=== PATIENT | male | born 1955 | race Hispanic/Latino ===

== ENCOUNTER 2017-10-29 14:38 | Emergency (ER) | payer OTHER, MEDICARE ==
[~2017-10-29 14:38] MED LIST: AMLO5TAB2 PO; ASPI-555 PO; INSLAN SQ; LISI40TA4 PO; METO50TA18 PO; SIMV40TA5 PO
[2017-10-29 15:39] LABS: BASOPHILS % (AUTO) 0.3 % (0.0-5.0); EOSINOPHILS % (AUTO) 1.5 % (0.0-8.0); HEMATOCRIT 33.3 % (42-54); LYMPHOCYTES % (AUTO) 21.2 % (21.0-51.0); MEAN CORPUSCULAR HEMOGLOBIN 32.1 pg (27.0-33.0); MEAN CORPUSCULAR HGB CONC 35.3 g/dL (32.0-36.0); PLATELET COUNT (AUTO) 173 K/uL (130-400); RED BLOOD CELL COUNT(AUTO) 3.66 MIL/uL (4.50-6.20); RED CELL DISTRIBUTION WIDTH 13.2 % (11.0-15.5); WHITE BLOOD COUNT (AUTO) 5.9 K/uL (4.8-10.8)
[2017-10-29 15:44] LABS: CREATININE 1.5 mg/dL (0.5-1.5)
[2017-10-29 15:49] LABS: ALBUMIN 4.5 g/dL (3.5-5.0); BILIRUBIN,TOTAL 0.6 mg/dL (0.2-1.0); TOTAL PROTEIN, SERUM 7.9 g/dL (6.0-8.3)
[2017-10-29 15:58] LABS: CREATINE KINASE, TOTAL 75 U/L (21-232); MYOGLOBIN 55 ng/mL (10-92); TROPONIN I < 0.04 ng/mL (0.00-0.06)
[2017-10-29 16:01] LABS: APPEARANCE,URINE Clear (CLEAR); BILIRUBIN,URINE Negative (NEGATIVE); COLOR,URINE Yellow (YELLOW); GLUCOSE, URINE (UA) Negative (NEGATIVE); KETONES,URINE Negative (NEGATIVE); LEUKOCYTE ESTERASE ,URINE Negative (NEGATIVE); NITRATE,URINE Negative (NEGATIVE); OCCULT BLOOD,URINE Negative (NEGATIVE); PH,URINE 5.5 (5.0-8.0); PROTEIN,URINE POS 1+ (NEGATIVE); UROBILINOGEN,URINE 0.2 mg/dL (0.2-1.0)
[2017-10-29 16:28] LABS: BACTERIA,URINE Rare /HPF (None Seen); RBC,URINE 0-1 /HPF (0-1); WBC,URINE 0-1 /HPF (0-1)
[2017-10-29 16:29] LABS: SQUAMOUS EPITHELIAL CELL,UR Rare /HPF (0-2)
[2017-10-29] MEDS ORDERED: CLONIDINE HCL 0.1 MG TABLET ONE (19:26)
[2017-12-20] MEDS ORDERED: METO50TA18 PO (13:18)
[2017-12-20] MEDS ORDERED: SERT25TA5 PO (13:18)
[2017-12-20] MEDS ORDERED: TYL3B PO (13:18)
== END 2017-10-29 20:00 | disposition home or self-care (01) ==
LOC: EDH 14:38
DX: I10 Essential (primary) hypertension (principal); R06.02 Shortness of breath; E11.9 Type 2 diabetes mellitus without complications; I25.10 Atherosclerotic heart disease of native coronary artery without angina pectoris; E78.5 Hyperlipidemia, unspecified; Z95.1 Presence of aortocoronary bypass graft
CPT/HCPCS: 36415; 71046; 80053; 81001; 82550; 82553; 83874; 84484; 85025; 87804; 93005; 99291

== ENCOUNTER 2017-12-23 12:45 | Observation (INO) | payer OTHER, MEDICARE ==
[2017-12-20 12:40] VITALS: BP 131/65
[2017-12-20 13:00] LABS: BASOPHILS % (AUTO) 0.3 % (0.0-5.0); EOSINOPHILS % (AUTO) 1.1 % (0.0-8.0); HEMATOCRIT 28.1 % (42-54); LYMPHOCYTES % (AUTO) 13.9 % (21.0-51.0); MEAN CORPUSCULAR HEMOGLOBIN 32.3 pg (27.0-33.0); MEAN CORPUSCULAR HGB CONC 35.4 g/dL (32.0-36.0); MEAN CORPUSCULAR VOLUME 91.2 fL (79-99); MONOCYTES % (AUTO) 9.7 % (3.0-13.0); PLATELET COUNT (AUTO) 150 K/uL (130-400); RED BLOOD CELL COUNT(AUTO) 3.08 MIL/uL (4.50-6.20); WHITE BLOOD COUNT (AUTO) 6.1 K/uL (4.8-10.8)
[2017-12-20 13:03] LABS: APPEARANCE,URINE Clear (CLEAR); BILIRUBIN,URINE Negative (NEGATIVE); COLOR,URINE Yellow (YELLOW); GLUCOSE, URINE (UA) Negative (NEGATIVE); KETONES,URINE Negative (NEGATIVE); LEUKOCYTE ESTERASE ,URINE Negative (NEGATIVE); NITRATE,URINE Negative (NEGATIVE); OCCULT BLOOD,URINE Negative (NEGATIVE); PROTEIN,URINE POS 1+ (NEGATIVE); UROBILINOGEN,URINE 0.2 mg/dL (0.2-1.0)
[2017-12-20 13:16] LABS: CREATININE 1.7 mg/dL (0.5-1.5); POTASSIUM 5.2 mmol/L (3.5-5.1)
[2017-12-20 13:20] LABS: INR 0.95 (0.85-1.15); PARTIAL THROMBOPLASTIN TIME 30.3 SEC (26.3-35.5)
[2017-12-20 13:24] LABS: BACTERIA,URINE Rare /HPF (None Seen); RBC,URINE 0-1 /HPF (0-1); SQUAMOUS EPITHELIAL CELL,UR Rare /HPF (0-2); WBC,URINE 0-1 /HPF (0-1)
[2017-12-23] VITALS (17 sets, daily range): BP systolic 113–179; BP diastolic 58–90
[~2017-12-23] VITALS: Ht 170.2 cm; Wt 76.1 kg
[~2017-12-23 12:45] MED LIST changes: +SERT25TA5 PO; +TYL3B PO
[2017-12-23] MEDS: CEFAZOLIN SODIUM 1 GM VIAL IVP SCH ×2 (13:00→19:10)
[2017-12-23] MEDS ORDERED: SODIUM CHLORIDE 0.9% 1000ML 1,000 ML IV ONE (13:32)
[2017-12-23 13:51] LABS: CREATININE 1.5 mg/dL (0.5-1.5); POTASSIUM 5.6 mmol/L (3.5-5.1)
[2017-12-23] MEDS ORDERED: SODIUM POLYSTYRENE SULFONATE 15 GM/60 ML ML PO SCH (14:15)
[2017-12-23] MEDS ORDERED: PROPOFOL 10 MG/ML 20ML VIAL IV ONE (19:01)
[2017-12-23] MEDS ORDERED: FENTANYL CITRATE PF 50 MCG/1 ML 2ML VIAL ONE ×3 (19:01→20:23)
[2017-12-23] MEDS ORDERED: EPHEDRINE SULFATE 50 MG/ML AMPULE ONE (19:21)
[2017-12-23] MEDS ORDERED: CEFAZOLIN SODIUM 1 GM VIAL ONE (19:32)
[2017-12-23] MEDS ORDERED: PHENYLEPHRINE HCL 10 MG/ML 1ML VIAL IV ONE (20:15)
[2017-12-23] MEDS ORDERED: NEOSTIGMINE 5MG/5ML SYR IV ONE (20:15)
[2017-12-23] MEDS ORDERED: GLYCOPYRROLATE 0.2 MG/ML 5 ML VIAL ONE (20:15)
[2017-12-23] MEDS ORDERED: LIDOCAINE PF 2% 5ML ABBOJECT ONE (20:15)
[2017-12-23] MEDS ORDERED: DIPHENHYDRAMINE HCL 25 MG CAPSULE PO PRN (20:30)
[2017-12-23] MEDS ORDERED: PROMETHAZINE HCL 25 MG/ML 1ML AMPULE IM PRN (20:30)
[2017-12-23] MEDS ORDERED: CALCIUM CARBONATE 500 MG TABLET PO PRN (20:30)
[2017-12-23] MEDS ORDERED: TEMAZEPAM 15 MG CAPSULE PO PRN (20:30)
[2017-12-23] MEDS ORDERED: MEPERIDINE-PF 50 MG/ML SYG ONE (20:55)
[2017-12-23] MEDS ORDERED: HYDROMORPHONE HCL 0.5 MG/0.5 ML ML ONE (21:11)
[2017-12-23] MEDS ORDERED: ACETAMINOPHEN-CODEINE 300/30MG TAB PO PRN (22:00)
[2017-12-23] MEDS: SODIUM CHLORIDE 0.9% 1000ML 1,000 ML IV SCH (23:28)
[2017-12-23] MEDS: HYDROCODONE/ACETAMINOPHEN 5/325 MG TAB PO PRN (23:35)
[2017-12-24] VITALS (8 sets, daily range): BP systolic 132–169; BP diastolic 63–80
[2017-12-24] MEDS ORDERED: CEFAZOLIN 2GM / 50 ML 50 ML IV SCH (01:30)
[2017-12-24] MEDS: CEFAZOLIN SODIUM 1 GM VIAL IVP SCH ×2 (01:44→08:46)
[2017-12-24] MEDS: HYDROCODONE/ACETAMINOPHEN 5/325 MG TAB PO PRN ×4 (05:13→13:33)
[2017-12-24 05:36] LABS: HEMATOCRIT 27.5 % (42-54); MEAN CORPUSCULAR HEMOGLOBIN 32.2 pg (27.0-33.0); MEAN CORPUSCULAR VOLUME 92.1 fL (79-99); PLATELET COUNT (AUTO) 176 K/uL (130-400); RED BLOOD CELL COUNT(AUTO) 2.99 MIL/uL (4.50-6.20); RED CELL DISTRIBUTION WIDTH 13.2 % (11.0-15.5); WHITE BLOOD COUNT (AUTO) 8.4 K/uL (4.8-10.8)
[2017-12-24] MEDS: SODIUM CHLORIDE 0.9% 1000ML 1,000 ML IV SCH (05:55)
[2017-12-24 05:58] LABS: CREATININE 1.5 mg/dL (0.5-1.5); POTASSIUM 4.8 mmol/L (3.5-5.1)
[2017-12-24] MEDS: METOPROLOL TARTRATE 50 MG TAB PO SCH ×2 (08:44→16:42)
[2017-12-24] MEDS ORDERED: TAMSULOSIN HCL 0.4 MG CAP.ER.24H PO SCH (09:00)
[2017-12-24] MEDS ORDERED: INSULIN GLARGINE 100 UNITS/ML 10 ML VIAL SQ SCH (09:00)
[2017-12-24] MEDS ORDERED: ATORVASTATIN CALCIUM 20 MG TABLET PO SCH (09:00)
[2017-12-24] MEDS ORDERED: AMLODIPINE BESYLATE 5 MG TAB PO SCH (09:00)
[2017-12-24] MEDS ORDERED: POLYETHYLENE GLYCOL 3350 17 GM POWD.PACK PO SCH (09:00)
[2017-12-24] MEDS ORDERED: LISINOPRIL 40 MG TABLET PO SCH (09:00)
[2017-12-24] MEDS ORDERED: SERTRALINE HCL 50 MG TABLET PO SCH (09:00)
[2017-12-24] MEDS ORDERED: ASPIRIN 81 MG EC TAB PO SCH (09:00)
[2017-12-24] MEDS ORDERED: ENOXAPARIN SODIUM 40 MG/0.4 ML SYRINGE SQ SCH (09:00)
== END 2017-12-24 19:08 | disposition home or self-care (01) ==
LOC: DAH 12:45 → 4AH 12:46
PROVIDERS: ADMIT Orthopaedic Surgery; ATTEND Orthopaedic Surgery
PROC: 0QSF04Z Reposition Left Patella with Internal Fixation Device, Open Approach (ICD-10-PCS; principal; 2017-12-23 19:05)
DX: S82.032A Displaced transverse fracture of left patella, initial encounter for closed fracture (principal); W01.0XXA Fall on same level from slipping, tripping and stumbling without subsequent striking against object, initial encounter; Y93.89 Activity, other specified; Y92.89 Other specified places as the place of occurrence of the external cause; Y99.8 Other external cause status; I10 Essential (primary) hypertension; E11.9 Type 2 diabetes mellitus without complications; K21.9 Gastro-esophageal reflux disease without esophagitis; E78.5 Hyperlipidemia, unspecified; F41.9 Anxiety disorder, unspecified; Z95.1 Presence of aortocoronary bypass graft; F32.9 Major depressive disorder, single episode, unspecified; F17.210 Nicotine dependence, cigarettes, uncomplicated; Z79.82 Long term (current) use of aspirin; Z79.899 Other long term (current) drug therapy
CPT/HCPCS: 27524; 36415 ×3; 76000; 80048 ×3; 81001; 82948 ×5; 85025; 85027; 85610; 85730; 96372; 96374; 96376; 97039; 97116 ×2; 97161; A4218 ×3; A4649 ×2; A4930 ×2; A6223; C1713 ×2; G0378 ×30; G8978; G8979; G8980; G8981; G8982; G8983; J0690 ×4; J1170; J1650; J2001; J2175; J2370; J2704; J2710; J3010 ×3; J3490 ×2; J7030

== ENCOUNTER → 2019-08-21 | Outpatient (CLI) | payer OTHER, MEDICARE ==
[~2019-08-21] MED LIST changes: -AMLO5TAB2 PO; +AMLO5TAB9 PO; +SIMV-46 PO; -SIMV40TA5 PO
== END | disposition home or self-care (01) ==
LOC: SHCH 12:49
PROVIDERS: ATTEND Internal Medicine Cardiovascular Disease
DX: I25.10 Atherosclerotic heart disease of native coronary artery without angina pectoris (principal)
CPT/HCPCS: 93306

== ENCOUNTER → 2021-10-25 | Outpatient (CLI) | payer OTHER, MEDICARE ==
[~2021-10-25] MED LIST changes: +AMLO-257 PO; -AMLO5TAB9 PO; -ASPI-555 PO; +ASPI-556 PO; -LISI40TA4 PO; +LISI40TA9 PO; +SERT-438 PO; -SERT25TA5 PO
== END | disposition home or self-care (01) ==
LOC: SHCH 12:32
PROVIDERS: ATTEND Internal Medicine Cardiovascular Disease
DX: I35.8 Other nonrheumatic aortic valve disorders (principal); I25.10 Atherosclerotic heart disease of native coronary artery without angina pectoris; I11.9 Hypertensive heart disease without heart failure; E11.9 Type 2 diabetes mellitus without complications; E78.5 Hyperlipidemia, unspecified; Z95.1 Presence of aortocoronary bypass graft
CPT/HCPCS: 93306

== ENCOUNTER 2021-12-11 07:48 | Observation (INO) | payer OTHER, MEDICARE ==
[2021-12-07 11:42] LABS: BASOPHILS % (AUTO) 0.6 % (0.0-5.0); EOSINOPHILS % (AUTO) 2.6 % (0.0-8.0); HEMATOCRIT 31.3 % (42-54); LYMPHOCYTES % (AUTO) 22.2 % (21.0-51.0); MEAN CORPUSCULAR HEMOGLOBIN 31.3 pg (27.0-33.0); MEAN CORPUSCULAR HGB CONC 33.9 g/dL (32.0-36.0); MEAN CORPUSCULAR VOLUME 92.3 fL (79-99); MONOCYTES % (AUTO) 8.4 % (3.0-13.0); PLATELET COUNT (AUTO) 191 K/uL (130-400); RED BLOOD CELL COUNT(AUTO) 3.39 MIL/uL (4.50-6.20); RED CELL DISTRIBUTION WIDTH 12.1 % (11.0-15.5); WHITE BLOOD COUNT (AUTO) 5.1 K/uL (4.8-10.8)
[2021-12-07 11:51] LABS: INR 0.98 (0.85-1.15); POTASSIUM 4.6 mmol/L (3.5-5.1); PROTHROMBIN TIME 10.7 SEC (9.6-11.6)
[2021-12-07 11:53] LABS: PARTIAL THROMBOPLASTIN TIME 29.9 SEC (26.3-35.5)
[2021-12-07 12:05] LABS: APPEARANCE,URINE Clear (CLEAR); BILIRUBIN,URINE Negative (NEGATIVE); COLOR,URINE Yellow (YELLOW); GLUCOSE, URINE (UA) Negative (NEGATIVE); KETONES,URINE Negative (NEGATIVE); LEUKOCYTE ESTERASE ,URINE Negative (NEGATIVE); NITRATE,URINE Negative (NEGATIVE); OCCULT BLOOD,URINE Negative (NEGATIVE); PH,URINE 5.5 (5.0-8.0); PROTEIN,URINE POS 2+ mg/dL (NEGATIVE); UROBILINOGEN,URINE 0.2 mg/dL (0.2-1.0)
[2021-12-07 12:10] LABS: B-TYPE NATRIURETIC PEPTIDE 28 pg/mL (0-100)
[2021-12-07 12:16] LABS: BACTERIA,URINE Rare /HPF (None Seen); RBC,URINE 0-1 /HPF (0-1); SQUAMOUS EPITHELIAL CELL,UR Rare /HPF (0-2); WBC,URINE 0-1 /HPF (0-1)
[2021-12-08 09:19] VITALS: BP 146/63
[~2021-12-11] VITALS: Ht 162.6 cm; Wt 66.1 kg
[2021-12-11] VITALS (29 sets, daily range): BP systolic 103–160; BP diastolic 52–82
[~2021-12-11 07:48] MED LIST changes: -ASPI-556 PO; +ATOR10TA69 PO; +FERS325 PO; +FOLI1TAB85 PO; -SERT-438 PO; -SIMV-46 PO; -TYL3B PO
[2021-12-11] MEDS ORDERED: 0.9%NACL 1000ML 1,000 ML IV SCH ×2 (08:00→14:30)
[2021-12-11 08:35] LABS: POTASSIUM 4.8 mmol/L (3.5-5.1)
[2021-12-11] MEDS ORDERED: LIDOCAINE HCL 2% VISCOUS 15 ML UDCUP ONE (08:49)
[2021-12-11] MEDS: 0.9%NACL 1000ML 1,000 ML IV SCH ×2 (09:02→15:21)
[2021-12-11] MEDS ORDERED: MIDAZOLAM HCL 1 MG/ML 2ML VIAL ONE (09:07)
[2021-12-11] MEDS ORDERED: FENTANYL CITRATE PF 50 MCG/1 ML 2ML VIAL ONE (09:07)
[2021-12-11] MEDS ORDERED: FLUMAZENIL 0.1MG/1ML 5ML VIAL IV ONE (09:07)
[2021-12-11] MEDS ORDERED: MIDAZOLAM HCL 1 MG/ML 2ML VIAL IVP SCH (10:00)
[2021-12-11] MEDS ORDERED: IOHEXOL 350 MG/ML 100ML INFUS..BTL IV ONE (12:53)
[2021-12-11] MEDS ORDERED: LIDOCAINE HCL 400MG/20ML VIAL ONE (12:53)
[2021-12-11] MEDS ORDERED: SODIUM BICARB 50MEQ 50ML VIAL 50 ML ONE (12:53)
[2021-12-11] MEDS ORDERED: MEPERIDINE-PF 25 MG/ML SYG ONE (12:53)
[2021-12-11] MEDS ORDERED: NITROGLYCERIN 50MG VIAL ONE (12:54)
[2021-12-11] MEDS ORDERED: IOHEXOL-350 50ML VIAL IV ONE (13:07)
[2021-12-11] MEDS ORDERED: HEPARIN 10,000 UNIT/10ML (1,000 UNIT/ML) VIAL ONE (13:25)
[2021-12-11] MEDS ORDERED: CLOPIDOGREL 300MG TAB ONE (14:19)
[2021-12-11] MEDS ORDERED: ASPIRIN 325MG EC TAB PO ONE (14:19)
[2021-12-11] MEDS ORDERED: DEXTROSE 50%-WATER 50 ML DISP.SYRIN IV PRN (14:30)
[2021-12-11] MEDS: INSULIN HUMULIN R 100 UNIT/ML 3ML SQ SCH ×2 (16:02→20:39)
[2021-12-11] MEDS: FERROUS SULFATE 325 MG TABLET.DR PO SCH (16:24)
[2021-12-11] MEDS: Vitamin B Complex/Vit C/Folic Acid PO SCH (16:24)
[2021-12-11] MEDS: METOPROLOL TARTRATE 50 MG TAB PO SCH (16:24)
[2021-12-11 16:41] LABS: HEMATOCRIT 28.3 % (42-54); MEAN CORPUSCULAR HEMOGLOBIN 32.1 pg (27.0-33.0); MEAN CORPUSCULAR VOLUME 91.9 fL (79-99); PLATELET COUNT (AUTO) 170 K/uL (130-400); RED BLOOD CELL COUNT(AUTO) 3.08 MIL/uL (4.50-6.20); RED CELL DISTRIBUTION WIDTH 12.4 % (11.0-15.5); WHITE BLOOD COUNT (AUTO) 6.9 K/uL (4.8-10.8)
[2021-12-11 17:06] LABS: BAND NEUTROPHILS % (MANUAL) 3 % (0-2); LYMPHOCYTES % (MANUAL) 26 % (22-44); MAN.DIFF COMMENT-IMPRESSION MANUAL DIFFERENTIAL; MONOCYTES % (MANUAL) 6 % (2-9); REACTIVE LYMPHOCYTES 3 % (0-0); SEGMENTED NEUTROPHILS % 62 % (40-70)
[2021-12-11] MEDS ORDERED: ATORVASTATIN 10 MG TABLET PO SCH (21:00)
[2021-12-12 04:07] VITALS: BP 147/67
[2021-12-12 04:25] LABS: HEMATOCRIT 27.3 % (42-54); MEAN CORPUSCULAR HEMOGLOBIN 31.2 pg (27.0-33.0); MEAN CORPUSCULAR HGB CONC 34.4 g/dL (32.0-36.0); MEAN CORPUSCULAR VOLUME 90.7 fL (79-99); RED BLOOD CELL COUNT(AUTO) 3.01 MIL/uL (4.50-6.20); RED CELL DISTRIBUTION WIDTH 12.3 % (11.0-15.5); WHITE BLOOD COUNT (AUTO) 6.1 K/uL (4.8-10.8)
[2021-12-12] MEDS: 0.9%NACL 1000ML 1,000 ML IV SCH ×2 (04:37→12:10)
[2021-12-12 04:47] LABS: CREATININE 1.8 mg/dL (0.5-1.5); POTASSIUM 4.8 mmol/L (3.5-5.1)
[2021-12-12] MEDS: INSULIN HUMULIN R 100 UNIT/ML 3ML SQ SCH ×3 (07:30→16:12)
[2021-12-12 08:29] VITALS: BP 128/67
[2021-12-12] MEDS ORDERED: AMLODIPINE 5 MG TAB PO SCH (09:00)
[2021-12-12] MEDS ORDERED: ASPIRIN 81MG CHEW TAB PO SCH (09:00)
[2021-12-12] MEDS ORDERED: INSULIN GLARGINE 100 UNITS/ML 10 ML VIAL SQ SCH (09:00)
[2021-12-12] MEDS ORDERED: LISINOPRIL 40 MG TABLET PO SCH (09:00)
[2021-12-12] MEDS ORDERED: CLOPIDOGREL 75MG TAB PO SCH (09:00)
[2021-12-12] MEDS ORDERED: FAMOTIDINE 20MG TAB PO SCH (10:00)
[2021-12-12] MEDS: Vitamin B Complex/Vit C/Folic Acid PO SCH (10:31)
[2021-12-12] MEDS: METOPROLOL TARTRATE 50 MG TAB PO SCH ×2 (10:31→16:43)
[2021-12-12] MEDS: FERROUS SULFATE 325 MG TABLET.DR PO SCH (10:32)
[2021-12-12 12:05] VITALS: BP 131/72
[2021-12-12 16:10] VITALS: BP 136/69
[2021-12-12] MEDS ORDERED: AEC81 PO ×2 (17:11→17:17)
[2021-12-12] MEDS ORDERED: CLOP75TA32 PO (17:11)
== END 2021-12-12 18:40 | disposition home or self-care (01) ==
LOC: DAH 07:48 → DAHIP 07:49 → 2AH 07:50
PROVIDERS: ADMIT Internal Medicine Infectious Disease; ATTEND Internal Medicine Infectious Disease
DX: I25.119 Atherosclerotic heart disease of native coronary artery with unspecified angina pectoris (principal); I12.9 Hypertensive chronic kidney disease with stage 1 through stage 4 chronic kidney disease, or unspecified chronic kidney disease; N18.30 Chronic kidney disease, stage 3 unspecified; E11.22 Type 2 diabetes mellitus with diabetic chronic kidney disease; D63.1 Anemia in chronic kidney disease; E78.5 Hyperlipidemia, unspecified; I25.5 Ischemic cardiomyopathy; K21.9 Gastro-esophageal reflux disease without esophagitis; N17.9 Acute kidney failure, unspecified; F17.200 Nicotine dependence, unspecified, uncomplicated; D50.9 Iron deficiency anemia, unspecified; Z95.1 Presence of aortocoronary bypass graft; Z98.61 Coronary angioplasty status; Z79.899 Other long term (current) drug therapy; Z98.890 Other specified postprocedural states
CPT/HCPCS: 36415 ×3; 71045; 80048 ×3; 80061; 81001; 82948 ×6; 83880; 85025 ×2; 85027; 85347 ×2; 85610; 85730; 86850; 86900; 86901; 93005; 93312; 93459; 93799; 96372; A4215; A4216; A4221; A4222; A4223 ×3; A4606; A4615; A4663; A7002; C1760; C1761; C1769 ×2; C1874 ×3; C1887; C1894; C9600; G0378 ×29; J1644 ×3; J1815; J2175; J2250; J3010; J3490 ×3; J7030 ×3; Q9967 ×2; 96374; 99152; 99156; 99157

== ENCOUNTER → 2023-04-05 | Outpatient (CLI) | payer OTHER, MEDICARE | END | disposition home or self-care (01) | LOC: RAH 13:52 | PROVIDERS: ATTEND Internal Medicine | DX: S96.912A Strain of unspecified muscle and tendon at ankle and foot level, left foot, initial encounter (principal); R07.89 Other chest pain; M19.072 Primary osteoarthritis, left ankle and foot; M77.32 Calcaneal spur, left foot; X58.XXXA Exposure to other specified factors, initial encounter; Y93.89 Activity, other specified; Y92.89 Other specified places as the place of occurrence of the external cause; Y99.8 Other external cause status | CPT/HCPCS: 71100; 73630 ==

== ENCOUNTER → 2023-08-20 | Outpatient (CLI) | payer OTHER, MEDICARE | END | disposition home or self-care (01) | LOC: SHCH 13:25 | PROVIDERS: ATTEND Internal Medicine Cardiovascular Disease | DX: I25.10 Atherosclerotic heart disease of native coronary artery without angina pectoris (principal); I10 Essential (primary) hypertension; E11.9 Type 2 diabetes mellitus without complications; E78.5 Hyperlipidemia, unspecified | CPT/HCPCS: 93306 ==

== ENCOUNTER 2024-04-06 15:34 | Emergency (ER) | payer OTHER, MEDICARE ==
[~2024-04-06] VITALS: Ht 170.2 cm; Wt 68.0 kg
[2024-04-06 16:41] VITALS: BP 132/67; PULSE 67; RESP 18; TEMP 97.9; O2SAT 98
[2024-04-06 16:44] LABS: BASOPHILS # (AUTO) 0.01 K/uL (0.00-0.20); BASOPHILS % (AUTO) 0.2 % (0.0-5.0); EOSINOPHILS # (AUTO) 0.28 K/uL (0.00-0.70); EOSINOPHILS % (AUTO) 6.6 % (0.0-8.0); IMMATURE GRANULOCYTE ABSOLUTE 0.01 K/uL (0-1); LYMPHOCYTES # (AUTO) 1.1 K/uL (1.0-4.8); LYMPHOCYTES % (AUTO) 25.8 % (21.0-51.0); MEAN CORPUSCULAR HEMOGLOBIN 31.5 pg (27.0-33.0); MEAN CORPUSCULAR HGB CONC 34.9 g/dL (32.0-36.0); MEAN CORPUSCULAR VOLUME 90.1 fL (79-99); MONOCYTES # (AUTO) 0.4 K/uL (0.1-1.0); MONOCYTES % (AUTO) 9.9 % (3.0-13.0); NEUTROPHILS # (AUTO) 2.4 K/uL (1.8-7.7); NEUTROPHILS % (AUTO) 57.3 % (40.0-77.0); PLATELET COUNT (AUTO) 121 K/uL (130-400); RED BLOOD CELL COUNT(AUTO) 2.32 MIL/uL (4.50-6.20); WHITE BLOOD COUNT (AUTO) 4.3 K/uL (4.8-10.8)
[2024-04-06 16:52] LABS: CREATININE 3.6 mg/dL (0.5-1.3); POTASSIUM 4.3 mmol/L (3.5-5.1)
[2024-04-06 16:54] LABS: INR 0.97 (0.85-1.15); PROTHROMBIN TIME 10.5 SEC (9.6-11.6)
[2024-04-06 16:56] LABS: PARTIAL THROMBOPLASTIN TIME 29.4 SEC (26.3-35.5)
[2024-04-06 17:11] LABS: HEMATOCRIT 20.9 % (42-54)
[2024-04-06] MEDS ORDERED: IBUP-2070 PO (17:14)
== END 2024-04-06 17:30 | disposition home or self-care (01) ==
LOC: EDH 15:34
DX: R22.41 Localized swelling, mass and lump, right lower limb (principal); M79.661 Pain in right lower leg; I10 Essential (primary) hypertension; E11.9 Type 2 diabetes mellitus without complications; E78.00 Pure hypercholesterolemia, unspecified; Z79.4 Long term (current) use of insulin; Z79.899 Other long term (current) drug therapy; Z79.84 Long term (current) use of oral hypoglycemic drugs; Z95.1 Presence of aortocoronary bypass graft
CPT/HCPCS: 36415; 80048; 85025; 85610; 85730; 93971

== ENCOUNTER 2025-07-07 14:03 | Inpatient (IN) | payer OTHER, MEDICAID ==
[~2025-07-07] VITALS: Ht 170.2 cm; Wt 58.4 kg
--- NOTE | 2025-07-07 14:15 | ERN ---
ED Note History of Present Illness Stated Complaint: CP Chief Complaint: Chest Pain Time Seen by MD: 14:09 Dictation: PATIENT IS A 70-YEAR-OLD MALE COMING IN TODAY WITH COMPLAINTS OF SHORTNESS A BREATH ON EXERTION WITH A EDEMA TO HIS BILATERAL EXTREMITIES HE HAS HAD FOR QU ITE A WHILE ON-CALL. NO CHEST PAIN NO BACK PAIN. HE DENIES FEVER CHILLS STATES HE IS SEEING DR. YAN FOR HIS KIDNEY FUNCTION. Allergies: Coded Allergies: No Known Drug Allergies (Unverified Allergy, Unknown, 04/01/17) Home Meds Active Scripts Ibuprofen (Ibuprofen) 600 Mg Tablet, 600 MG PO Q6H PRN for PAIN, #30 TAB Prov:RONNI MONTES CONTACT LENS CUTTER 04/06/24 Reported Medications Ferrous Sulfate (Ferrous Sulfate) 325 Mg Ectab, 325 MG PO AM, TAB.EC 12/08/21 Vit B Cmplx 3/FA/Vit C/Biotin (Nasrin-[facility] Rx Tablet) 1 Each Tablet, 1 EACH PO AM, TAB 12/08/21 Atorvastatin Calcium (Atorvastatin Calcium) 10 Mg Tablet, 10 MG PO AM, TAB 12/08/21 Metoprolol Tartrate (Metoprolol Tartrate) 50 Mg Tablet, 50 MG PO BIDAC, TAB 12/20/17 Insulin Glargine,Hum.rec.anlog (Lantus) 100 Units/Ml Inj, 8 UNITS SQ DAILY, ML 04/01/17 Amlodipine Besylate (Amlodipine Besylate) 5 Mg Tablet, 5 MG PO DAILY, TAB 04/01/17 Lisinopril (Lisinopril) 40 Mg Tablet, 40 MG PO DAILY, TAB 04/01/17 Past Medical History Past Medical History: Diabetes-Type II, High Cholesterol, Heart Disease, Hyp ertension Surgical History: CABG, Other Surgical History Other: HEART STENTS RN Note Reviewed/Agreed w/PFSH: Yes Review of System Dictation CONSTITUTIONAL: NEGATIVE EXCEPT FOR HPI HEAD/FACE: NEGATIVE EXCEPT FOR HPI EENT: NEGATIVE EXCEPT FOR HPI RESPIRATORY: NEGATIVE EXCEPT FOR HPI SHORTNESS A BREATH/DEPENDING EDEMA GASTROINTESTINAL/ABDOMINAL: NEGATIVE EXCEPT FOR HPI GENITOURINARY: NEGATIVE EXCEPT FOR HPI MUSCULOSKELETAL: NEGATIVE EXCEPT FOR HPI INTEGUMENTARY: NEGATIVE EXCEPT FOR HPI NEUROLOGICAL/PSYCH: NEGATIVE EXCEPT FOR HPI HEMATOLOGIC/LYMPHATIC: NEGATIVE EXCEPT FOR HPI ALL SYSTEMS NEGATIVE, EXCEPT NOTED ABOVE. 13 POINT REVIEW OF SYSTEMS ASSESSED AND ALL NEGATIVE EXCEPT FOR ABOVE. Initial Vital Sign VS Vital Signs Date Time Temp Pulse Resp B/P (MAP) Pulse Ox O2 Delivery O2 Flow Rate FiO2 07/07/25 14:09 98.2 68 18 166/75 99 Room Air 0 07/07/25 15:14 21 Physical Exam Dictation VITAL SIGNS REVIEWED GENERAL APPEARANCE: ALERT, ORIENTED X 3, NO ACUTE DISTRESS, WELL DEVELOPED, NOURISHED. HEAD AND FACE: NON-TRAUMATIC. EYES: PERRL, PINK CONJUNCTIVAS, EYELID NO TRAUMA, ANTERIOR CHAMBER WITH ARCUS SENILIS. EARS: PINNAS INTACT AND NO SIGNS OF TRAUMA OR ERYTHEMA EAR CANALS CLEAR AND NO DISCHARGE TM NO ERYTHEMA NOSE: NO DISCHARGE, NO BLEEDING. OROPHARYNX: MOUTH NORMAL, TONGUE PINK, PHARYNX CLEAR,NO ERYTHEMA, TONSILS NO EXUDATES, NO ABSCESSES NOTED, MUCOUS MEMBRANE MOIST NECK: SUPPLE, NON-TENDER, NO THYROMEGALY, NO MASSES, NO JVD, NO BRUITS BREAST:DEFERRED CHEST:NO TENDERNESS, NO CREPITUS, NO PARADOXICAL MOVEMENT, NO RETRACTIONS LUNGS:CLEAR, WELL-VENTILATED, SYMMETRIC, NO RALES, NO WHEEZING, NO RHONCHI, NO STRIDOR, GOOD BREATH SOUNDS BILATERALLY NO TACHYPNEA NO RETRACTIONS DIMINISHED IN THE BASES HEART: REGULAR RATE, REGULAR RHYTHM, NO MURMUR, NO GALLOPS VASCULAR: 2+ PERIPHERAL EDEMA BILATERAL LOWER EXTREMITIES TO KNEE, ABDOMEN: SOFT, POSITIVE BOWEL SOUNDS, NONDISTENDED, NO GUARDING, NONTENDER, NO REBOUND, NO MASSES NO HEPATOMEGALY, NO SPLENOMEGALY, NO JOINER'S SIGN, NO HERNIAS. RECTAL: DEFERRED GENITAL: DEFERRED NEUROLOGICAL: NORMAL SPEECH, MOTOR FUNCTION INTACT, SENSORY FUNCTION INTACT MUSCULOSKELETAL: NECK NONTENDER, FULL RANGE OF MOTION, BACK NONTENDER, FULL RANGE OF MOTION, EXTREMITIES: NONTENDER, FULL RANGE OF MOTION SKIN: COLOR PINK, DRY, NO TURGOR, NO RASH, NO LACERATIONS, NO ABRASIONS, NO CONTUSIONS. LYMPHATIC: DEFERRED Results (Laboratory/Radiology) Laboratory/Radiology Laboratory Tests Test 07/07/25 14:27 07/07/25 14:28 White Blood Count 5.2 K/uL (4.8-10.8) Red Blood Count 2.58 MIL/uL (4.50-6.20) L Hemoglobin 8.3 g/dL (14.0-18.0) L Hematocrit 23.3 % (42-54) L Mean Corpuscular Volume 90.3 fL (79-99) Mean Corpuscular Hemoglobin 32.2 pg (27.0-33.0) Mean Corpuscular Hemoglobin Concent 35.6 g/dL (32.0-36.0) Red Cell Distribution Width 14.1 % (11.0-15.5) Platelet Count 116 K/uL (130-400) L Mean Platelet Volume 9.8 fL (7.5-10.5) Immature Granulocyte % (Auto) 0.2 % (0-1) Neutrophils (%) (Auto) 78.0 % (40.0-77.0) H Lymphocytes (%) (Auto) 12.2 % (21.0-51.0) L Monocytes (%) (Auto) 7.3 % (3.0-13.0) Eosinophils (%) (Auto) 1.9 % (0.0-8.0) Basophils (%) (Auto) 0.4 % (0.0-5.0) Neutrophils # (Auto) 4.0 K/uL (1.8-7.7) Lymphocytes # (Auto) 0.6 K/uL (1.0-4.8) L Monocytes # (Auto) 0.4 K/uL (0.1-1.0) Eosinophils # (Auto) 0.10 K/uL (0.00-0.70) Basophils # (Auto) 0.02 K/uL (0.00-0.20) Absolute Immature Granulocyte (auto 0.01 K/uL (0-1) Nucleated Red Blood Cells 0.0 % (0.0-0.19) Sodium Level 126 mmol/L (136-145) L Potassium Level 5.0 mmol/L (3.5-5.1) Chloride Level 89 mmol/L (101-111) *L Carbon Dioxide Level 16 mmol/L (21-32) L Blood Urea Nitrogen 97 mg/dL (7-18) *H Creatinine 8.3 mg/dL (0.5-1.3) *H Glomerular Filtration Rate Calc 6 mL/min (>90) Random Glucose 127 mg/dL (70-105) H Total Calcium 7.0 mg/dL (8.5-10.1) L Magnesium Level 2.10 mg/dL (1.80-2.40) Troponin I High Sensitivity 12 ng/L (4-75) B-Type Natriuretic Peptide 661 pg/mL (0-100) H Urine Color COLORLESS (YELLOW) Urine Appearance CLEAR (CLEAR) Urine pH 5.5 (5.0-8.0) Urine Specific Hyde 1.007 (1.001-1.031) Urine Protein 100 mg/dL (NEGATIVE) H Urine Glucose (UA) NEGATIVE mg/dL (NEGATIVE) Urine Ketones NEGATIVE mg/dL (NEGATIVE) Urine Occult Blood SMALL (NEGATIVE) H Urine Nitrate NEGATIVE (NEGATIVE) Urine Bilirubin NEGATIVE mg/dL (NEGATIVE) Urine Urobilinogen 0.2 mg/dL (0.2-1.0) Urine Leukocyte Esterase NEGATIVE Eduard/uL Urine RBC 0-1 /HPF (0-1) Urine WBC 0-1 /HPF (0-1) Urine Bacteria None /HPF (None Seen) XAM: XR Chest, 1 View. CLINICAL HISTORY: SOB. COMPARISON: None provided. FINDINGS: LUNGS: The lung dai are hyperexpanded compatible with underlying COPD. No consolidation. PLEURAL SPACES: No pleural effusion or pneumothorax. HEART: The heart, mediastinum, and pulmonary vascularity are within normal limits. No mediastinal or hilar adenopathy is defined. BONES: No pathologic skeletal findings are evident. Midline sternotomy sutures are seen. IMPRESSION: 1. Mild hyperexpanded chest with COPD changes. /[place] DICTATED Labs Reviewed?: Yes EKG Comment: EKG SINUS RHYTHM/HEART RATE 70/AXIS NORMAL/EARLY REPOLARIZATION SEEN IN V1 V2 V3 ED Course ED Course Orders Procedure Category Date Status Time B-Type Natriuretic LAB 07/07/25 Complete Peptide 14:09 Cbc With Differential LAB 07/07/25 Complete 14:09 Chest 1vw RAD 07/07/25 Resulted 14:09 12 Lead Ekg Tracing- EKG 07/07/25 Complete Technical 14:09 Magnesium LAB 07/07/25 Complete 14:09 Troponin I High LAB 07/07/25 Complete Sensitivity 14:09 Basic Metabolic Panel LAB 07/07/25 Complete 14:09 Urinalysis Profile LAB 07/07/25 Complete 14:09 Nephrology Consult CONPHYSVC 07/07/25 Verified 15:17 Edm Admit Bridge Order ADM 07/07/25 Verified 15:17 Vital Signs Date Time Temp Pulse Resp B/P (MAP) Pulse Ox O2 Delivery O2 Flow Rate FiO2 07/07/25 15:14 98.1 76 15 160/77 100 Room Air* 0 21 07/07/25 14:09 98.2 68 18 166/75 99 Room Air 0 1520/SPOKE WITH DR. HUSAIN REVIEWED EKG LABS CHEST X-RAY AND PATIENT'S NEED FOR EMERGENT HEMODIALYSIS. HE ACCEPTED PATIENT HEART Score Response (Comments) Value EKG: Repolarization changes 1 Age: > 65yrs (+2) 2 Risk Factors: 3+ risk factors (+2) 2 Initial Troponin: Normal limit (0) 0 Total 5 Medical Decision Making MDM MDM: DIFFERENTIAL DIAGNOSIS: ACS/AMI/ELECTROLYTE IMBALAN CE/DEHYDRATION/PNEUMONIA/BRONCHITIS/EDEMA/FLUID OVERLOAD/RENAL FAILURE RATIONALE: TESTS CONSIDERED AND ORDERED SECONDARY TO SHARED DECISION MAKING INCLUDE: LABS, ECG AND RADIOLOGY PREVIOUS OUTSIDE RECORDS REVIEWED: OLD ER VISITS. RISK OF COMPLICATION AND/OR MORBIDITY OR MORTALITY OF PATIENT MANAGEMENT: NONE MEDICATIONS-PER MEDICATION RECONCILIATION NEED FOR HOSPITALIZATION: PATIENT DOES MEET CRITERIA FOR HOSPITALIZATION. DIALYSIS CATHETER PLACEMENT AND HEMODIALYSIS NEED FOR EMERGENCY MAJOR/MINOR SURGERY: NO THERE ARE NO SOCIAL CONCERNS WITH THIS PATIENT. PRESCRIPTION DRUG MANAGEMENT PRESCRIPTIONS WILL INCLUDE SYMPTOMATIC CARE PATIENT'S PRIOR EXTERNAL MEDICAL RECORDS FROM OTHER ER VISITS WERE REVIEWED BY ME INDICATED. PRIOR TESTING AND RESULTS FROM PREVIOUS VISITS WERE REVIEWED. PRIOR TESTS WERE TAKEN INTO ACCOUNT WITH MEDICAL DECISION MAKING AND RESOURCE UTILIZATION, INDEPENDENT HISTORIAN/HISTORIANS WERE USED TO OBTAIN COMPLETE MEDICAL HISTORY. I INDEPENDENTLY INTERPRETED THE TEST THAT WERE PERFORMED, RESULTS WERE REVIEWED BY ME AND CONSIDERED FINDINGS ON RADIOLOGY IF ORDERED. MEDICAL MANAGEMENT AND EXAMINATION INTERPRETATION DISCUSSIONS WERE HAD BY ME WITH OTHER QUALIFIED HEALTHCARE PROFESSIONALS INDICATED FOR THE PATIENT'S CARE. DX & DISP Disposition: Inpatient Decision to Admit Time: 15:20 Departure Impression: Primary Impression: Acute on chronic renal failure Additional Impressions: Hyponatremia, Hypochloremia, Uncontrolled diabetes mellitus, Hypocalcemia, Anemia secondary to renal failure Condition: Stable Referrals: DELPHINE RUSH MD (PCP) I have reviewed the case, and I agree with, Diagnosis and Plan RONNI MONTESP Jul 07, 2025 14:15
--- NOTE | 2025-07-07 14:32 | EKG ---
[facility] Test Date: 2025-07-07 Test Time: 13:51:16 Pat Name: EVELIA LICEA Department: ED Room: 420 Gender: M Biology Laboratory Assistant: [id number] : 1955 Requested By: RONNI MONTES Order Number: [id number] Reading MD: Judy Valenzuela Measurements Intervals [place] Rate: 70 P: 55 ME: 198 QRS: 27 QRSD: 97 T: 134 QT: 409 QTc: 441 Interpretive Statements Sinus rhythm Repol abnrm suggests ischemia, anterolateral Compared to ECG 12/07/2021 10:15:03 Early repolarization now present Possible ischemia now present Electronically Signed On 07-08-2025 21:19:57 MUSIC THERAPY TEACHER by Judy Valenzuela Please click the below link to view image of tracing.
[2025-07-07 14:37] LABS: APPEARANCE,URINE CLEAR (CLEAR); GLUCOSE, URINE (UA) NEGATIVE (NEGATIVE); LEUKOCYTE ESTERASE ,URINE NEGATIVE Leu/uL (NEGATIVE); NITRATE,URINE NEGATIVE (NEGATIVE); OCCULT BLOOD,URINE SMALL (NEGATIVE)
[2025-07-07 14:39] LABS: ADD UA MICROSCOPIC YES
[2025-07-07 14:39] LABS: IMMATURE GRANULOCYTE ABSOLUTE 0.01 K/uL (0-1); NUCLEATED RED BLOOD CELLS 0.0 % (0.0-0.19); PLATELET COUNT (AUTO) 116 K/uL (130-400); RED BLOOD CELL COUNT(AUTO) 2.58 MIL/uL (4.50-6.20); RED CELL DISTRIBUTION WIDTH 14.1 % (11.0-15.5); WHITE BLOOD COUNT (AUTO) 5.2 K/uL (4.8-10.8)
[2025-07-07 14:54] LABS: GLOMERULAR FILTR. RATE CALC 6.0 mL/min (>90); GLUCOSE,RANDOM 127.0 mg/dL (70-105); SODIUM SERUM 126.0 mmol/L (136-145)
--- NOTE | 2025-07-07 15:00 | HMCIMG ---
EXAM: XR Chest, 1 View. CLINICAL HISTORY: SOB. COMPARISON: None provided. FINDINGS: LUNGS: The lung dai are hyperexpanded compatible with underlying COPD. No consolidation. PLEURAL SPACES: No pleural effusion or pneumothorax. HEART: The heart, mediastinum, and pulmonary vascularity are within normal limits. No mediastinal or hilar adenopathy is defined. BONES: No pathologic skeletal findings are evident. Midline sternotomy sutures are seen. IMPRESSION: 1. Mild hyperexpanded chest with COPD changes. /Virgil
[2025-07-07 15:01] LABS: CREATININE 8.3 mg/dL (0.5-1.3); UREA NITROGEN, BLOOD 97.0 mg/dL (7-18)
[2025-07-07] MEDS ORDERED: DEXTROSE 50%-WATER 50 ML DISP.SYRIN IV PRN (15:30)
[2025-07-07] MEDS ORDERED: GLUCAGON 1MG KIT 1 MG ML IM PRN (15:30)
--- NOTE | 2025-07-07 16:18 | NUR ---
DCP:HOME Pt currently lives at home with his . Pt denies having any DME, home health, or provider services. pt states that he is able to complete ADLs independently. PCP is Dr. Campbell and uses [facility] for any RX needs. At DC pt will want to go home and family can assist with transportation.
--- NOTE | 2025-07-07 17:44 | NUR ---
REPORT GIVEN TO AL THOMPSON SENT WITH PATIENT
[2025-07-07 18:00] VITALS: BP 154/79; PULSE 74; RESP 20; TEMP 98.1
--- NOTE | 2025-07-07 18:06 | NUR ---
Received report from Jameson, patient arrived on unit at 1800
[2025-07-07 18:43] VITALS: O2SAT 99
[2025-07-07 20:00] VITALS: BP 164/74; PULSE 71; RESP 18; TEMP 98.2; O2SAT 98
[2025-07-07] MEDS: SODIUM BICARBONATE 650 MG TAB PO SCH (21:04)
[2025-07-07] MEDS: SODIUM CHLORIDE 1,000 MG TAB PO SCH (21:04)
[2025-07-08] VITALS (7 sets, daily range): BP systolic 149–160; BP diastolic 59–76; PULSE 65–70; RESP 16–24; TEMP 97.6–98.4; O2SAT 99
[2025-07-08 05:14] LABS: IMMATURE GRANULOCYTE ABSOLUTE 0.01 K/uL (0-1); NUCLEATED RED BLOOD CELLS 0.0 % (0.0-0.19); PLATELET COUNT (AUTO) 102 K/uL (130-400); RED BLOOD CELL COUNT(AUTO) 2.38 MIL/uL (4.50-6.20); RED CELL DISTRIBUTION WIDTH 13.9 % (11.0-15.5); WHITE BLOOD COUNT (AUTO) 3.8 K/uL (4.8-10.8)
[2025-07-08 05:27] LABS: % IRON SATURATION 55.2 % (30-44); IRON, SERUM 126.0 mcg/dL (65-175)
[2025-07-08 05:35] LABS: ASPARTATE AMINOTRANSFERASE 14.0 U/L (10-37); GLOMERULAR FILTR. RATE CALC 6.0 mL/min (>90); GLUCOSE,RANDOM 84.0 mg/dL (70-105); PHOSPHORUS 7.2 mg/dL (2.5-4.9); SODIUM SERUM 128.0 mmol/L (136-145); TOTAL PROTEIN, SERUM 7.1 g/dL (6.0-8.3)
--- NOTE | 2025-07-08 05:37 | HP ---
DATE OF SERVICE: 07/07/2025 HISTORY AND PHYSICAL PRESENTING COMPLAINT: Bilateral leg swelling and shortness of breath. HISTORY OF PRESENT ILLNESS: A 70-year-old male with hypertension, diabetes mellitus, chronic tobacco use, CAD and CKD, who presented to the hospital with bilateral leg swelling. The patient also complains of shortness of breath. The patient was seen in the clinic by Nephrology sometime this week and was told to go to the Emergency Room for possible initiation of dialysis. BNP is elevated at 661. Sodium 126 and potassium of 5.0. BUN was 97 and creatinine 0.3. Bicarbonate is low at 16. Chloride also is low at 89. Denies fever or chills. No cough. No hemoptysis or pleuritic pain. Chest x-ray shows COPD changes. PAST MEDICAL HISTORY: * Diabetes mellitus. * Hypertension. * Dyslipidemia. * Iron deficiency anemia. * Chronic kidney disease. * Chronic tobacco use. * Coronary artery disease. PAST SURGICAL HISTORY: * CABG. * ANTONIA. * Cardiac catheterization. * PCI. ALLERGIES: No known drug allergies. HOME MEDICATIONS: Reviewed. SOCIAL HISTORY: Lives with . Smokes. No alcohol or illicit drug use. FAMILY HISTORY: Positive for diabetes mellitus. REVIEW OF SYSTEMS: Greater than 10 systems were reviewed and negative, except as documented above. PHYSICAL EXAMINATION: GENERAL: Elderly male. VITAL SIGNS: Temperature 98.2, pulse 75, respiratory rate 10 and BP 171/84. EYES: No icterus. Pupils equal and reactive. HENT: No oral thrush seen. Moist oral mucosa. NECK: Supple. No JVD or thyromegaly. LUNGS: Good air entry. No rales. No rhonchi. CARDIOVASCULAR: S1, S2 regular. No murmur heard. ABDOMEN: Full, soft and nontender. Bowel sounds present. CENTRAL NERVOUS SYSTEM: Awake, alert and oriented x2. No focal deficits. SKIN: No rashes. No itchiness. LYMPHATICS: No peripheral lymphadenopathy. BACK: No deformity. No pressure ulcer. LABORATORY DATA: BNP 661, sodium 126, potassium 5.0, chloride 89, bicarbonate 16, BUN 97, creatinine 8.3. WBC 5.2, hemoglobin 8.2 and platelets 116. RADIOLOGY: Chest x-ray shows COPD changes. ASSESSMENT: A 70-year-old male presented with shortness of breath and bilateral leg swelling. Current problems include: * ESRD. * Hyponatremia. * Hyperkalemia. * Metabolic acidosis. * Diabetes mellitus. * Anemia. * Thrombocytopenia. * Hypertension. PLAN: * The patient admitted to medical floor telemetry. * Start the patient on sodium bicarbonate. * Start the patient on sodium chloride tablet. * Nephrology evaluation. * Lispro sliding scale. * ADA diet. * Monitor electrolytes and correct as needed. * Peripheral DVT prophylaxis. Thank you for allowing me to participate in the care of this patient. TID: [id number] RECEIPT: [id number] MTDD
[2025-07-08 05:48] LABS: CREATININE 8.3 mg/dL (0.5-1.3); UREA NITROGEN, BLOOD 97.0 mg/dL (7-18)
[2025-07-08] MEDS: (Cholecalciferol (Vitamin D3) 25 MCG) PO SCH (09:00)
[2025-07-08] MEDS ORDERED: Vitamin B Complex/Vit C/Folic Acid PO SCH (09:00)
[2025-07-08] MEDS: Vitamin B Complex/Vit C/Folic Acid PO SCH (09:29)
[2025-07-08] MEDS: FERROUS SULFATE 325 MG TABLET.DR PO SCH (09:30)
[2025-07-08] MEDS: amLODIPine 5 MG TAB PO SCH (09:30)
[2025-07-08] MEDS: TORSEMIDE 20 MG TAB PO SCH (09:30)
--- NOTE | 2025-07-08 14:16 | PN ---
NEPHROLOGY PROGRESS NOTE Date/Time Patient Seen: Jul 08, 2025 SUBJECTIVE: This is a 70-year-old male with hypertension, diabetes mellitus, chronic tobacco use, CAD and CKD. He presented to the hospital with bilateral leg swelling. He was noted to have elevated BUN/creatinine Patient follows up in the renal clinic and initially refused dialysis We are consulted for renal failure. Renal function continues to worsen Electrolytes are stable Anemia was noted He follows up [place] [facility] for anemia. He continues to complain of shortness of breath He was seen in the medical floor, in no acute distress Multiple family members at the bedside Prognosis remains guarded REVIEW OF SYSTEMS: GENERAL: Positive for shortness of breath and lower extremity edema NEUROLOGIC: Negative for any blurry vision, blind spots, double vision, facial asymmetry, dysphagia, dysarthria, hemiparesis, hemisensory deficits, vertigo, ataxia. HEENT: Negative for any head trauma, neck trauma, neck stiffness, photophobia, phonophobia, sinusitis, rhinitis. CARDIAC: Negative for any chest pain, dyspnea on exertion, paroxysmal nocturnal dyspnea, peripheral edema. PULMONARY: Negative for any shortness of breath, wheezing, COPD, or TB exposure. GASTROINTESTINAL: Negative for any abdominal pain, nausea, vomiting, bright red blood per rectum, melena. GENITOURINARY: Negative for any dysuria, hematuria, incontinence. INTEGUMENTARY: Negative for any rashes, cuts, insect bites. RHEUMATOLOGIC: Negative for any joint pains, photosensitive rashes, history of vasculitis or kidney problems. HEMATOLOGIC: Negative for any abnormal bruising, frequent infections or bleeding. Vital Signs (last 8hr) Date Time Temp Pulse Resp B/P (MAP) Pulse Ox O2 Delivery O2 Flow Rate FiO2 07/08/25 12:00 98.1 65 20 156/75 99 Room Air 21 07/08/25 08:59 98.1 70 24 150/70 99 Room Air 21 PHYSICAL EXAM: GENERAL: Alert and oriented x 3. No acute distress. Well-nourished. EYES: EOMI. Anicteric. HENT: Moist mucous membranes. No scleral icterus. No cervical lymphadenopathy. LUNGS: Clear to auscultation bilaterally. No accessory muscle use. CARDIOVASCULAR: Regular rate and rhythm. No murmur. No JVD. ABDOMEN: Soft, non-tender and non-distended. No palpable masses. EXTREMITIES: No edema. Non-tender. SKIN: No rashes or lesions. Warm. NEUROLOGIC: No focal neurological deficits. CN II-XII grossly intact, but not individually tested. PSYCHIATRIC: Cooperative. Appropriate mood and affect. Current Medications Medications (Trade) Dose Ordered Sig/Lionel Route PRN Reason Start Time Stop Time Status Last Admin Dose Admin Acetaminophen (TYLenol 325MG TAB) 650 mg Q6H PRN PO MILD PAIN (1-3) 07/07/25 15:30 08/06/25 15:29 Amlodipine Besylate (NorvASC 5MG TAB) 5 mg DAILY PO 07/08/25 09:00 08/07/25 08:59 07/08/25 09:30 5 MG Atorvastatin Calcium (LIPItor 10MG) 10 mg AM PO 07/08/25 09:00 08/07/25 08:59 07/08/25 09:30 10 MG Dextrose (D50w) 50 ml AD PRN IV HYPOGLYCEMIA PROTOCOL 07/07/25 15:30 08/06/25 15:29 Ferrous Sulfate (Ferrous Sulfate) 325 mg DAILY PO 07/08/25 09:00 08/07/25 08:59 07/08/25 09:30 325 MG Glucagon (Glucagon 1mg Kit) 1 mg AD PRN IM HYPOGLYCEMIA PROTOCOL 07/07/25 15:30 08/06/25 15:29 Heparin Sodium (Porcine) (HEParin 5,000 UNIT VIAL) 5,000 unit Q12H SQ 07/07/25 15:30 08/06/25 15:29 07/08/25 03:50 5,000 UNIT Home Med (Home Medication) (Cholecalciferol (Vitamin D3) 25 MCG) DAILY PO 07/08/25 09:00 08/07/25 08:59 Ibuprofen (moTRIN) 600 mg Q6H PRN PO P 07/07/25 19:00 08/06/25 18:59 Insulin Human Regular (humuLIN R 100 UNIT/ML 3ML) INSULIN SLIDING SCAL... ACHS SQ 07/07/25 16:30 08/06/25 16:29 Metoprolol Tartrate (loprESSOR) 50 mg BIDAC PO 07/08/25 07:30 08/07/25 07:29 07/08/25 09:30 50 MG Ondansetron HCl (zoFRAN 4MG INJ) 4 mg Q6H PRN IVP NAUSEA/VOMITING 07/07/25 15:30 08/06/25 15:29 Pantoprazole Sodium (PROTonix 40MG TAB) 40 mg DAILY PO 07/08/25 09:00 08/07/25 08:59 07/08/25 09:29 40 MG Sodium Bicarbonate (Sodium Bicarbonate) 650 mg BID PO 07/07/25 21:00 08/06/25 20:59 07/08/25 09:29 650 MG Sodium Chloride (Sodium Chloride) 1,000 mg TID PO 07/07/25 21:00 08/06/25 20:59 07/08/25 09:30 1,000 MG Torsemide (Demadex) 20 mg DAILY PO 07/08/25 09:00 08/07/25 08:59 07/08/25 09:30 20 MG Vitamin B Complex/ Vit C/Folic Acid (Nephrovite Tablet) 1 cap DAILY PO 07/08/25 09:00 08/07/25 08:59 07/08/25 09:29 1 CAP Vitamin B Complex/ Vit C/Folic Acid (Nephrovite Tablet) 1 cap DAILY PO 07/08/25 09:00 07/07/25 23:18 DC LABORATORY: [ ] Hematology Labs: Test 07/08/25 04:50 Range/Units White Blood Count 3.8 #L 4.8-10.8 K/uL Red Blood Count 2.38 L 4.50-6.20 MIL/uL Hemoglobin 7.8 L 14.0-18.0 g/dL Hematocrit 21.4 L 42-54 % Mean Corpuscular Volume 89.9 79-99 fL Mean Corpuscular Hemoglobin 32.8 27.0-33.0 pg Mean Corpuscular Hemoglobin Concent 36.4 H 32.0-36.0 g/dL Red Cell Distribution Width 13.9 11.0-15.5 % Platelet Count 102 L 130-400 K/uL Mean Platelet Volume 9.9 7.5-10.5 fL Immature Granulocyte % (Auto) 0.3 0-1 % Neutrophils (%) (Auto) 63.7 40.0-77.0 % Lymphocytes (%) (Auto) 21.9 21.0-51.0 % Monocytes (%) (Auto) 9.4 3.0-13.0 % Eosinophils (%) (Auto) 4.4 0.0-8.0 % Basophils (%) (Auto) 0.3 0.0-5.0 % Neutrophils # (Auto) 2.4 1.8-7.7 K/uL Lymphocytes # (Auto) 0.8 L 1.0-4.8 K/uL Monocytes # (Auto) 0.4 0.1-1.0 K/uL Eosinophils # (Auto) 0.17 0.00-0.70 K/uL Basophils # (Auto) 0.01 0.00-0.20 K/uL Absolute Immature Granulocyte (auto 0.01 0-1 K/uL Nucleated Red Blood Cells 0.0 0.0-0.19 % Red Blood Cell Morphology See comments Chemistry Labs: Test 07/08/25 11:26 07/08/25 04:50 07/07/25 14:27 Range/Units Whole Blood Glucose 114 H 70-110 MG/DL Bedside Glucose Comment Notified Nurse Sodium Level 128 L 136-145 mmol/L Potassium Level 4.3 3.5-5.1 mmol/L Chloride Level 93 L 101-111 mmol/L Carbon Dioxide Level 19 L 21-32 mmol/L Blood Urea Nitrogen 97 *H 7-18 mg/dL Creatinine 8.3 *H 0.5-1.3 mg/dL Glomerular Filtration Rate Calc 6 >90 mL/min Random Glucose 84 70-105 mg/dL Total Calcium 6.9 L 8.5-10.1 mg/dL Phosphorus Level 7.2 H 2.5-4.9 mg/dL Magnesium Level 2.10 1.80-2.40 mg/dL Iron Level 126 65-175 mcg/dL Total Iron Binding Capacity 228 L 250-450 mcg/dL Percent Iron Saturation 55.2 H 30-44 % Ferritin 402 H 30-400 ng/mL Total Bilirubin 0.7 0.2-1.0 mg/dL Aspartate Amino Transf (AST/SGOT) 14 10-37 U/L Alanine Aminotransferase (ALT/SGPT) 26 12-78 U/L Alkaline Phosphatase 94 50-136 U/L Total Protein 7.1 6.0-8.3 g/dL Albumin 4.3 3.5-5.0 g/dL Troponin I High Sensitivity 12 4-75 ng/L B-Type Natriuretic Peptide 661 H 0-100 pg/mL DIAGNOSTICS / RADIOLOGY: [facility] [address] [place] [address] IMAGING REPORT Signed PATIENT: EVELIA LICEA MR#: [id number] : 1955 SEX: M AGE: 70 LOCATION: [facility] ORDER 141 STATUS: REG ER REPORT#: [id number] SERVICE 140 REASON: SOB ORDERING PHYSICIAN: RONNI MONTES CLOTH WIRE WEAVER PROCEDURE: CXR1VW - CHEST 1VW EXAM: XR Chest, 1 View. CLINICAL HISTORY: SOB. COMPARISON: None provided. FINDINGS: LUNGS: The lung dai are hyperexpanded compatible with underlying COPD. No consolidation. PLEURAL SPACES: No pleural effusion or pneumothorax. HEART: The heart, mediastinum, and pulmonary vascularity are within normal limits. No mediastinal or hilar adenopathy is defined. BONES: No pathologic skeletal findings are evident. Midline sternotomy sutures are seen. IMPRESSION: 1. Mild hyperexpanded chest with COPD changes. /Ducor DICTATED BY: KENJI CAMPBELL MD DATE: 07/07/251558 ELECTRONICALLY SIGNED BY: KENJI CAMPBELL MD DATE: 07/07/251558 ASSESSMENT: Fluid overload Lower extremity edema Acute on chronic renal failure Hyponatremia Metabolic acidosis Diabetes mellitus type 2 Anemia Thrombocytopenia Hypertension PLAN: Labs, diagnostic, radiologic exams reviewed and interpreted by myself and supervising physician. We have reviewed external records in detail From a renal standpoint, the function continues to decline and electrolytes remain unbalanced. The patient has remained hemodynamically stable and therefore we will recommend dialysis intervention to correct electrolytes as well as BUN and Creatinine. Risk and complications of renal replacement therapy, vascular access, and modalities were explained in great detail to the patient. Patient voices understanding and wishes to proceed. PermCath replaced by IR tomorrow, dialysis to follow Start Lasix 80 mg IV b.i.d. Start Epogen 31098 units subQ, 1st dose now Preserve nondominant arm for AV access creation Obtain records from [place] [facility] Require close monitoring of renal function and electrolytes Order CBC, CMP, A1c, and electrolytes in am Renal diabetic diet BiPAP as necessary, for respiratory distress Monitor blood pressure adjust medication doses as needed Avoid hypotensive episodes May use Dilaudid 0.5 mg IV every 6 hours as needed for severe pain Monitor blood sugars Strict intake, output, and daily weight should be monitored Please renally adjust medications Avoid nephrotoxic and nonsteroidal drugs Avoid contrast if possible Will continue to monitor renal function, anemia, electrolytes Treatment plan discussed with patient Questions were answered We have discussed with the other team physicians in detail about the care plan We will continue to monitor the patient closely ATTESTATION BY PHYSICIAN I have seen and examined the patient. I reviewed the documentation, medical decision making, and treatment plan as noted by the mid-level provider above. I agree with the findings and plan of care. KEENAN BENNETT MD, [facility] Jul 08, 2025 14:16
[2025-07-08] MEDS: EPOETIN ALFA-EPBX (NON-ESRD) 10,000 UNIT/ML VIAL SQ ONE (15:19)
[2025-07-08 16:07] LABS: GLOMERULAR FILTR. RATE CALC 6.0 mL/min (>90); LDL DIRECT 49.0 mg/dL (0-99)
[2025-07-08 16:22] LABS: CREATININE 8.3 mg/dL (0.5-1.3); UREA NITROGEN, BLOOD 99.0 mg/dL (7-18)
[2025-07-08 16:56] LABS: HIV 1&2 ANTIBODY Non-Reactive (Negative)
--- NOTE | 2025-07-08 16:59 | NUR ---
IV IV TAKEN OUT FROM RIGHT HAND. NEW IV INSERTED ON LEFT HAND.
--- NOTE | 2025-07-08 19:05 | PN ---
INFECTIOUS DISEASE PROGRESS NOTE Date of Service: Jul 08, 2025 SUBJECTIVE: This is a 70-year-old male patient admitted to the hospital for evaluation of shortness of breath and edema to bilateral lower extremities. This morning during examination patient continues with bilateral lower extremity edema, the BUN is 97 and creatinine of 8.3 and pending a nephrology evaluation. No fever, temperature is 98.1. We will continue to follow patient's care. PHYSICAL EXAM EYES: Anicteric. Pupils equal and reactive. HENT: No oral thrush seen, moist Oral mucosa. NECK: Supple, no JVD or thyromegaly. LUNGS: Good air entry. No rales, no rhonchi. CARDIOVASCULAR: S1, S2 regular. No murmur heard. ABDOMEN: Soft, non tender, bowel sounds present. CENTRAL NERVOUS SYSTEM: Awake, alert, oriented x 3. SKIN: No rashes, no swelling. LYMPHATICS: No peripheral lymphadenopathy MUSCULOSKELETAL: No joint swelling, erythema or tenderness. EXTREMITIES: No cyanosis or clubbing. Bilateral lower extremity edema. BACK: No deformity, no pressure ulcer. GENITOURINARY: No dysuria or hematuria. Vital Sign (Last 12 Hours) 07/08/25 07/08/25 07/08/25 07/08/25 08:00 08:59 12:00 16:00 Temp 98.1 98.1 98.2 Pulse 70 65 65 Resp 24 20 16 B/P (MAP) 150/70 156/75 150/73 Pulse Ox 99 99 99 100 O2 Delivery Room Air* Room Air Room Air Room Air O2 Flow Rate 0 FiO2 21 21 21 21 LABS: Laboratory: Test 07/08/25 16:46 07/08/25 15:28 07/08/25 11:26 07/08/25 04:50 Range/Units Whole Blood Glucose 109 70-110 MG/DL Hemoglobin 7.7 L 14.0-18.0 g/dL Hematocrit 22.0 L 42-54 % Blood Urea Nitrogen 99 *H 7-18 mg/dL Creatinine 8.3 *H 0.5-1.3 mg/dL Glomerular Filtration Rate Calc 6 >90 mL/min Ferritin 421 H 30-400 ng/mL Albumin 4.1 3.5-5.0 g/dL Triglycerides Level 49 30-200 mg/dL Cholesterol Level 131 <200 mg/dL LDL Cholesterol 49 0-99 mg/dL HDL Cholesterol 71 29-71 mg/dL HIV (1&2) Antibody Non-Reactive Negative HIV P24 Antigen, Qualitative Non-Reactive Negative Bedside Glucose Comment Notified Nurse White Blood Count 3.8 #L 4.8-10.8 K/uL Red Blood Count 2.38 L 4.50-6.20 MIL/uL Mean Corpuscular Volume 89.9 79-99 fL Mean Corpuscular Hemoglobin 32.8 27.0-33.0 pg Mean Corpuscular Hemoglobin Concent 36.4 H 32.0-36.0 g/dL Red Cell Distribution Width 13.9 11.0-15.5 % Platelet Count 102 L 130-400 K/uL Mean Platelet Volume 9.9 7.5-10.5 fL Immature Granulocyte % (Auto) 0.3 0-1 % Neutrophils (%) (Auto) 63.7 40.0-77.0 % Lymphocytes (%) (Auto) 21.9 21.0-51.0 % Monocytes (%) (Auto) 9.4 3.0-13.0 % Eosinophils (%) (Auto) 4.4 0.0-8.0 % Basophils (%) (Auto) 0.3 0.0-5.0 % Neutrophils # (Auto) 2.4 1.8-7.7 K/uL Lymphocytes # (Auto) 0.8 L 1.0-4.8 K/uL Monocytes # (Auto) 0.4 0.1-1.0 K/uL Eosinophils # (Auto) 0.17 0.00-0.70 K/uL Basophils # (Auto) 0.01 0.00-0.20 K/uL Absolute Immature Granulocyte (auto 0.01 0-1 K/uL Nucleated Red Blood Cells 0.0 0.0-0.19 % Red Blood Cell Morphology See comments Sodium Level 128 L 136-145 mmol/L Potassium Level 4.3 3.5-5.1 mmol/L Chloride Level 93 L 101-111 mmol/L Carbon Dioxide Level 19 L 21-32 mmol/L Random Glucose 84 70-105 mg/dL Total Calcium 6.9 L 8.5-10.1 mg/dL Phosphorus Level 7.2 H 2.5-4.9 mg/dL Magnesium Level 2.10 1.80-2.40 mg/dL Iron Level 126 65-175 mcg/dL Total Iron Binding Capacity 228 L 250-450 mcg/dL Percent Iron Saturation 55.2 H 30-44 % Total Bilirubin 0.7 0.2-1.0 mg/dL Aspartate Amino Transf (AST/SGOT) 14 10-37 U/L Alanine Aminotransferase (ALT/SGPT) 26 12-78 U/L Alkaline Phosphatase 94 50-136 U/L Total Protein 7.1 6.0-8.3 g/dL Test 07/07/25 14:28 07/07/25 14:27 Range/Units Urine Color COLORLESS YELLOW Urine Appearance CLEAR CLEAR Urine pH 5.5 5.0-8.0 Urine Specific [place] 1.007 1.001-1.031 Urine Protein 100 H NEGATIVE mg/dL Urine Glucose (UA) NEGATIVE NEGATIVE mg/dL Urine Ketones NEGATIVE NEGATIVE mg/dL Urine Occult Blood SMALL H NEGATIVE Urine Nitrate NEGATIVE NEGATIVE Urine Bilirubin NEGATIVE NEGATIVE mg/dL Urine Urobilinogen 0.2 0.2-1.0 mg/dL Urine Leukocyte Esterase NEGATIVE NEGATIVE Eduard/uL Urine RBC 0-1 0-1 /HPF Urine WBC 0-1 0-1 /HPF Urine Bacteria None None Seen /HPF Troponin I High Sensitivity 12 4-75 ng/L B-Type Natriuretic Peptide 661 H 0-100 pg/mL ASSESSMENT: End-stage renal disease. Hyponatremia. Anemia. Diabetes mellitus. Hypertension. PLAN: Pending [facility] evaluation. Continue diuretics. Continue anti diabetics. Continue GI prophylaxis. Oxygen support as needed. Home medications have been reconciled. This case was reviewed and discussed with my supervising physician Dr. Husain and the above assessment and plan was formulated and agreed upon. ATTESTATION BY PHYSICIAN I have seen and examined the patient. I reviewed the documentation, medical decision making, and treatment plan as noted by the mid-level provider above. I agree with the findings and plan of care. BRIGITTE HUSAIN MD, [facility] Jul 08, 2025 19:05
--- NOTE | 2025-07-08 20:02 | CONS ---
NEPHROLOGY CONSULTATION REASON FOR CONSULTATION: Renal failure. HISTORY OF PRESENT ILLNESS: This patient has multiple medical problems. He is a 70-year-old. The patient is short of breath, fluid overloaded, and has edema. The patient has underlying renal failure, which is already advanced. The patient also has significant anemia and has been on erythropoietin therapy. The patient has underlying diabetes, on insulin, and underlying hypertension. No other associated findings. No other aggravating factor. Known coronary artery disease and previous CABG. PAST MEDICAL HISTORY: Significant for diabetes, hypertension, hyperlipidemia, anemia, and coronary artery disease. PAST SURGICAL HISTORY: CABG and coronary stents. SOCIAL HISTORY: He has a history of alcohol use. No drug abuse reported to me. FAMILY HISTORY: Unremarkable for present contacts. REVIEW OF SYSTEMS: CONSTITUTIONAL: The patient is weak. No fevers, chills or rigors. HEENT: No headache. No oral ulcer, sore throat, or difficulty swallowing. No new vision complaint. RESPIRATORY: No cough, expectoration, hemoptysis, or pleuritic pain. CARDIOVASCULAR: No orthopnea, PND, or shortness of breath. GASTROINTESTINAL: No nausea, vomiting, or diarrhea reported. GENITOURINARY: Negative for hematuria. DERMATOLOGIC: No rashes, pruritus, or skin lesions. ENDOCRINE: No polyuria, polydipsia or polyphagia. PSYCHIATRIC: Negative for anxiety or depression. NEUROLOGIC: No seizure or syncope. PHYSICAL EXAMINATION: GENERAL: Pale, in no acute distress. VITAL SIGNS: Blood pressure is 166/75, pulse 68, respiratory rate is 18, afebrile. HEENT: Head is atraumatic, normocephalic. Pupils are round, reactive to light. Sclerae are anicteric. Conjunctivae are not pale. Oral mucosa is not dry. NECK: Supple. No masses or bruits palpated. Neck has no bruits. CHEST: Decreased breath sounds at both bases. Prolonged expiration. Crackles heard bilaterally. CARDIAC: Regular rhythm. No rub. No S3 or S4. No parasternal heave. ABDOMEN: No guarding or tenderness. Bowel sounds present. No free fluid. EXTREMITIES: With edema. No cyanosis or clubbing. SKIN: No petechiae to inspected. LYMPHATIC: No lymph node swelling in the neck. LABORATORY DATA: Labs have been reviewed. His hemoglobin is ____. Other electrolytes have been reviewed. Urine has shown some proteinuria. His creatinine is elevated to 8.3. Magnesium is 2.1. BNP is 661. GFR is only 6. IMAGING STUDIES: Chest x-ray was personally reviewed. COPD changes also. EKG was reviewed. Early repolarization and normal sinus rhythm. Old records reviewed. Imaging studies are personally reviewed. Multiple other comorbidities are present. Old records, office record, and external records have been reviewed. PROBLEMS: * Renal failure, may have reached end-stage renal disease. * Anemia. * Fluid overload and anasarca. * Mild proteinuria. * Diabetic nephropathy. * Severe hypertension. * Noncompliance. * Anemia, has been on erythropoiesis-stimulating agent. * Hyponatremia. * Uncontrolled diabetes. PLAN: * The patient will have admission done. * May need dialysis soon. * Intake and output and weight monitoring. * Diuretics as indicated. * Avoid nonsteroidal anti-inflammatory drugs. * Avoid contrast as far as possible. * Preserve nondominant arm. * Nephro-Sanford daily. * IV diuretics as indicated. * Avoid other toxic agents. * We will follow up on blood pressure, electrolytes, and renal function closely. The patient will have a followup on all these issues very closely. I have discussed the patient with the other team physicians. I have reviewed the old external records. We reviewed the labs and imaging studies personally. IV Dilaudid 0.2 mg every 6 hours can be used for severe pain. The patient will have a followup on blood pressure, electrolytes, renal function, and overall status. The patient will have a followup on anemia also. Erythropoietin therapy will be given as indicated and will be followed up closely. His condition is critical. The patient has iron studies and ferritin should be done. As needed iron replacement via IV route. His condition is critical and guarded. TID: [id number] RECEIPT: [id number]
--- NOTE | 2025-07-08 23:00 | NUR ---
BLOOD SUGAR: PT DIAPHORETIC, ASKING NURSING STAFF TO CHECK BLOOD SUGAR, SPOT [id number]. PT GIVEN 1 ORANGE JUICE, SANDWICH AND APPLESAUCE. PT INSTRUCTED TO EAT FOOD AND WILL BE BACK IN 20-30 MINUTES TO CHECK BLOOD SUGAR. PT VERBALIZES UNDERSTANDING, CALL DAVID WITHIN REACH.
[2025-07-09] VITALS (24 sets, daily range): BP systolic 139–186; BP diastolic 60–82; PULSE 61–79; RESP 14–18; TEMP 97.4–98.7; O2SAT 98
[2025-07-09 04:43] LABS: NUCLEATED RED BLOOD CELLS 0.0 % (0.0-0.19); PLATELET COUNT (AUTO) 90 K/uL (130-400); RED BLOOD CELL COUNT(AUTO) 2.39 MIL/uL (4.50-6.20); RED CELL DISTRIBUTION WIDTH 13.5 % (11.0-15.5); WHITE BLOOD COUNT (AUTO) 2.5 K/uL (4.8-10.8)
[2025-07-09 04:50] LABS: INR 0.99 (0.85-1.15)
[2025-07-09 05:05] LABS: ASPARTATE AMINOTRANSFERASE 11.0 U/L (10-37); GLOMERULAR FILTR. RATE CALC 6.0 mL/min (>90); GLUCOSE,RANDOM 145.0 mg/dL (70-105); PHOSPHORUS 7.3 mg/dL (2.5-4.9); SODIUM SERUM 132.0 mmol/L (136-145); TOTAL PROTEIN, SERUM 6.3 g/dL (6.0-8.3)
[2025-07-09 05:11] LABS: BAND NEUTROPHILS % (MANUAL) 1 % (0-2); LYMPHOCYTES % (MANUAL) 10 % (22-44); MAN.DIFF COMMENT-IMPRESSION MANUAL DIFFERENTIAL; MONOCYTES % (MANUAL) 6 % (2-9); PLATELET MORPHOLOGY COMMENT DECREASED; SEGMENTED NEUTROPHILS % 83 % (40-70)
[2025-07-09 05:32] LABS: CREATININE 8.4 mg/dL (0.5-1.3); UREA NITROGEN, BLOOD 100.0 mg/dL (7-18)
[2025-07-09] MEDS ORDERED: LIDOCAINE HCL 1% MDV 50ML VIAL ONE (07:18)
[2025-07-09] MEDS ORDERED: HEParin-NS 1,000 UNIT/500 ML 500 ML IV ONE (07:19)
--- NOTE | 2025-07-09 07:28 | NUR ---
PATIENT TAKEN TO SWITCHBOARD OPERATOR SUPERVISOR FOR PERMACATH PLACEMENT. NO SIGNS OF DISTRESS NOTED.
[2025-07-09] MEDS ORDERED: MIDAZOLAM HCL 1 MG/ML 2ML VIAL ONE (07:38)
--- NOTE | 2025-07-09 08:45 | NUR ---
PATIENT ARRIVED BACK TO THE UNIT FROM PROCEDURE. PATIENT TOLERATED WELL. NO SIGNS OF DISTRESS NOTED. POST OP VITALS STARTED. WILL KEEP PATIENT'S HEAD OF THE BED AT 45 DEGREES FOR 4 HOURS. WILL CONTINUE TO MONITOR THE PATIENT. BED LOW AND LOCKED WITH CALL LIGHT IN REACH.
--- NOTE | 2025-07-09 09:26 | CCATH ---
STUDY: Fluoroscopy and ultrasound-guided placement of 15.5 Mongolian Perm-A-Cath DuraMax 19 cm length tip to cuff. PROCEDURE IN DETAIL: After the right neck was prepped and draped in the usual sterile technique under ultrasound guidance, the right internal jugular vein was accessed. Through this, an angiographic wire was introduced. A tunneling was performed from the right mid clavicular region to the venotomy site. A 15.5-Mongolian 19-cm tip to cuff DuraMax catheter was tunneled and placed through the venotomy site. Over an angiographic wire, the right internal jugular vein was dilated using 8 and a 14-Mongolian dilator followed by placement of a 15.5-Mongolian peel away sheath. Through this, the DuraMax Perm-A-Cath was deployed with the tip in the superior vena cava. The venotomy site was sutured with 3-0 Ethilon and the catheter was anchored with 3-0 Ethilon. The catheter was flushed with heparinized saline. IMPRESSION: Ultrasound fluoroscopy guided placement of a right internal jugular hemodialysis catheter which appears to be in satisfactory position and is amenable for dialysis. TID: [id number] RECEIPT: [id number] [facility]
--- NOTE | 2025-07-09 09:45 | PN ---
INFECTIOUS DISEASE PROGRESS NOTE Date of Service: Jul 09, 2025 SUBJECTIVE: This 70-year-old male patient has been examined today at bedside. No chest pain or shortness of breath. He remains afebrile. PermCath was able to be placed today, he is currently tolerating dialysis. Patient is in respiratory distress, he is calm laid in bed. Swelling to bilateral lower extremities has improved. We will continue to follow patient closely. PHYSICAL EXAM EYES: Anicteric. Pupils equal and reactive. HENT: No oral thrush seen, moist Oral mucosa. NECK: Supple, no JVD or thyromegaly. LUNGS: Good air entry. No rales, no rhonchi. CARDIOVASCULAR: S1, S2 regular. No murmur heard. ABDOMEN: Soft, non tender, bowel sounds present. CENTRAL NERVOUS SYSTEM: Awake, alert, oriented x 3. SKIN: No rashes, no swelling. LYMPHATICS: No peripheral lymphadenopathy MUSCULOSKELETAL: No joint swelling, erythema or tenderness. EXTREMITIES: No cyanosis or clubbing. Bilateral lower extremity edema. BACK: No deformity, no pressure ulcer. GENITOURINARY: No dysuria or hematuria. Vital Sign (Last 12 Hours) 07/09/25 07/09/25 00:00 04:00 Temp 97.3 97.5 Pulse 64 61 Resp 16 16 B/P (MAP) 139/60 163/79 Pulse Ox 99 100 O2 Delivery Room Air Room Air Intake & Output (last 24hrs) 07/08/25 07/08/25 07/09/25 15:00 23:00 07:00 Intake Total 480 ml 120 ml 8.0 ml Output Total 500 ml 1100 ml Balance 480 ml -380 ml -1092.0 ml LABS: Laboratory: Test 07/09/25 05:14 07/09/25 04:22 07/08/25 15:28 07/08/25 11:26 Range/Units Whole Blood Glucose 133 #H 70-110 MG/DL White Blood Count 2.5 #L 4.8-10.8 K/uL Red Blood Count 2.39 L 4.50-6.20 MIL/uL Hemoglobin 7.8 L 14.0-18.0 g/dL Hematocrit 21.4 L 42-54 % Mean Corpuscular Volume 89.5 79-99 fL Mean Corpuscular Hemoglobin 32.6 27.0-33.0 pg Mean Corpuscular Hemoglobin Concent 36.4 H 32.0-36.0 g/dL Red Cell Distribution Width 13.5 11.0-15.5 % Platelet Count 90 L 130-400 K/uL Mean Platelet Volume 10.1 7.5-10.5 fL Segmented Neutrophils % 83 H 40-70 % Band Neutrophils % 1 0-2 % Lymphocytes % (Manual) 10 L 22-44 % Monocytes % (Manual) 6 2-9 % Nucleated Red Blood Cells 0.0 0.0-0.19 % Differential Comment MANUAL DIFFERENTIAL White Cell Morphology Comment Platelet Morphology Comment DECREASED Red Blood Cell Morphology HYPOCHROM CELLS 1+ Prothrombin Time 10.5 9.6-11.6 SEC Prothromb Time International Ratio 0.99 0.85-1.15 Activated Partial Thromboplast Time 29.1 26.3-35.5 SEC Sodium Level 132 L 136-145 mmol/L Potassium Level 4.7 3.5-5.1 mmol/L Chloride Level 97 L 101-111 mmol/L Carbon Dioxide Level 19 L 21-32 mmol/L Blood Urea Nitrogen 100 *H 7-18 mg/dL Creatinine 8.4 *H 0.5-1.3 mg/dL Glomerular Filtration Rate Calc 6 >90 mL/min Random Glucose 145 #H 70-105 mg/dL Total Calcium 6.8 L 8.5-10.1 mg/dL Phosphorus Level 7.3 H 2.5-4.9 mg/dL Total Bilirubin 0.5 # 0.2-1.0 mg/dL Aspartate Amino Transf (AST/SGOT) 11 10-37 U/L Alanine Aminotransferase (ALT/SGPT) 21 12-78 U/L Alkaline Phosphatase 81 50-136 U/L Total Protein 6.3 6.0-8.3 g/dL Albumin 3.6 3.5-5.0 g/dL Hemoglobin A1c 4.6 4.0-6.0 % Estimated Average Glucose (eAG) 85 70-126 mg/dL Ferritin 421 H 30-400 ng/mL Triglycerides Level 49 30-200 mg/dL Cholesterol Level 131 <200 mg/dL LDL Cholesterol 49 0-99 mg/dL HDL Cholesterol 71 29-71 mg/dL HIV (1&2) Antibody Non-Reactive Negative HIV P24 Antigen, Qualitative Non-Reactive Negative Bedside Glucose Comment Notified Nurse Test 07/08/25 04:50 07/07/25 14:28 07/07/25 14:27 Range/Units Immature Granulocyte % (Auto) 0.3 0-1 % Neutrophils (%) (Auto) 63.7 40.0-77.0 % Lymphocytes (%) (Auto) 21.9 21.0-51.0 % Monocytes (%) (Auto) 9.4 3.0-13.0 % Eosinophils (%) (Auto) 4.4 0.0-8.0 % Basophils (%) (Auto) 0.3 0.0-5.0 % Neutrophils # (Auto) 2.4 1.8-7.7 K/uL Lymphocytes # (Auto) 0.8 L 1.0-4.8 K/uL Monocytes # (Auto) 0.4 0.1-1.0 K/uL Eosinophils # (Auto) 0.17 0.00-0.70 K/uL Basophils # (Auto) 0.01 0.00-0.20 K/uL Absolute Immature Granulocyte (auto 0.01 0-1 K/uL Magnesium Level 2.10 1.80-2.40 mg/dL Iron Level 126 65-175 mcg/dL Total Iron Binding Capacity 228 L 250-450 mcg/dL Percent Iron Saturation 55.2 H 30-44 % Urine Color COLORLESS YELLOW Urine Appearance CLEAR CLEAR Urine pH 5.5 5.0-8.0 Urine Specific [place] 1.007 1.001-1.031 Urine Protein 100 H NEGATIVE mg/dL Urine Glucose (UA) NEGATIVE NEGATIVE mg/dL Urine Ketones NEGATIVE NEGATIVE mg/dL Urine Occult Blood SMALL H NEGATIVE Urine Nitrate NEGATIVE NEGATIVE Urine Bilirubin NEGATIVE NEGATIVE mg/dL Urine Urobilinogen 0.2 0.2-1.0 mg/dL Urine Leukocyte Esterase NEGATIVE NEGATIVE Eduard/uL Urine RBC 0-1 0-1 /HPF Urine WBC 0-1 0-1 /HPF Urine Bacteria None None Seen /HPF Troponin I High Sensitivity 12 4-75 ng/L B-Type Natriuretic Peptide 661 H 0-100 pg/mL ASSESSMENT: End-stage renal disease Hyponatremia. Anemia. Diabetes mellitus. Hypertension. Status post PermCath placement PLAN: Follow Nephrology's recommendations. Continue diuretics. Continue anti diabetics. Continue GI prophylaxis. Oxygen support as needed. Continue hypertensive medications Continue dialysis as per Nephrology recommendation This case was reviewed and discussed with my supervising physician Dr. Briones and the above assessment and plan was formulated and agreed upon. DORIAN ROBLEDO [facility] Jul 09, 2025 09:45
[2025-07-09] MEDS: 0.9%NACL 1000ML 1,000 ML IV SCH (11:48)
[2025-07-09 12:15] LABS: HEPATITIS B CORE AB TOTAL Non-Reactive (Nonreactive); HEPATITIS B SURFACE ANTIBODY Negative (Reactive)
--- NOTE | 2025-07-09 16:09 | CONS ---
CONSULT REFERRING PHYSICIAN: Dr. Briones REASON FOR CONSULT: pancytopenia HISTORY HPI: A 70-year-old male with hypertension, diabetes mellitus, chronic tobacco use, CAD and CKD, who presented to the hospital with bilateral leg swelling. The patient also complains of shortness of breath. The patient was seen in the clinic by Nephrology sometime this week and was told to go to the Emergency Room for possible initiation of dialysis. BNP is elevated at 661. Sodium 126 and potassium of 5.0. BUN was 97 and creatinine 0.3. Bicarbonate is low at 16. Chloride also is low at 89. Denies fever or chills. No cough. No hemoptysis or pleuritic pain. Chest x-ray shows COPD changes. PMH: PAST MEDICAL HISTORY: * Diabetes mellitus. * Hypertension. * Dyslipidemia. * Iron deficiency anemia. * Chronic kidney disease. * Chronic tobacco use. * Coronary artery disease. PSH: PAST SURGICAL HISTORY: * CABG. * ANTONIA. * Cardiac catheterization. * PCI. SH: SOCIAL HISTORY: Lives with . Smokes. No alcohol, or illicit drug use. FH: noncontributory ALLERGIES: Coded Allergies: No Known Drug Allergies (Unverified Allergy, Unknown, 04/01/17) CURRENT MEDS: Current Medications Medications (Trade) Dose Ordered Sig/Lionel Route PRN Reason Start Time Stop Time Status Last Admin Sodium Chloride 1,000 ml @ 0 mls/hr ONCE IV 07/09/25 11:00 08/08/25 10:59 07/09/25 11:48 Hydralazine HCl (APRESOLine 20MG INJ) 10 mg Q8H5 PRN IV ADMINISTER FOR SBP > 160 07/09/25 16:00 08/08/25 15:59 REVIEW OF SYSTEMS CONSTITUTIONAL: FEVER; No FEVER; SWEATS; No SWEATS; CHILLS; No CHILLS, No WEIGHT LOSS HEENT: JAUNDICE; No JAUNDICE; SORE THROAT; No SORE THROAT; SINUS PRESSURE; No SINUS PRESSURE, No VISION CHANGES RESPIRATORY: COUGH; No COUGH; CHEST PAIN; No CHEST PAIN, No SHORTNESS OF BREATH, No HEMOPTYSIS CARDIOVASCULAR: PALPATIONS; No PALPATIONS, No DYSPNEA ON EXERTION, No SYNCOPE GASTROINTESTINAL: No NAUSEA, No VOMITING, No DIARRHEA, No DYSPHAGIA, No CONSTIPATION, No ABDOMINAL PAIN, No HEMATEMESIS, No HEMATOCHEZIA, No MELENA GENITOURINARY: No DYSURIA, No HEMATURIA HEMATOLOGIC/LYMPHATIC: No EASY BRUISING, No CERVICAL ADENOPATHY, No AXILLARY ADENOPATHY, No INGUINAL ADENOPATHY MUSCULOSKELETAL: BONE PAIN; No BONE PAIN, No MASS; NORMAL RANGE OF MOTION; No NORMAL RANGE OF MOTION SKIN/BREASTS: BREAST MASS; No BREAST MASS, No NIPPLE INVERSION, No RASH NEUROLOGICAL: No WEAKNESS-EXTREMETIES, No DIPLOPIA, No NUMBNESS, No TINGLING PSYCHOLOGICAL: No SUICIDAL IDEATION PHYSICAL EXAM VITALS: Vital Signs Date Time Temp Pulse Resp B/P (MAP) Pulse Ox O2 Delivery O2 Flow Rate FiO2 07/09/25 13:45 97.9 69 14 160/79 100 Room Air 07/09/25 11:45 21 07/08/25 20:00 0 GENERAL: ALERT, ORIENTED, APPEARS-NO ACUTE DISTRESS EYES: SCLERAE ANICTERIC, PUPILS EQUAL/REACTIVE, EXTRAOCULAR MUSCLES INTCT ENT/NECK: ORAL MUCOSA W/O LESIONS, OROPHARYNX IS CLEAR, NECK SUPPLE W/O MASSES RESPIRATORY: LUNGS CLEAR-AUSC/PERCUS CARDIOVASCULAR: REGULAR RATE GASTROINTESTINAL: ABDOMEN IS SOFT HEMATOLOGY/LYMPHATIC: No CERVICAL ADENOPATHY, No SUPRACLAVICULR ADENOPATHY, No AXILLARY ADENOPATHY, No INGUINAL ADENOPATHY MUSCULOSKELETAL: CYANOSIS-EXTREMETIES; No CYANOSIS-EXTREMETIES, No CLUBBING; EDEMA SKIN/BREASTS: MASSES; No MASSES, No RASH, No HIVES NEUROLOGICAL: GROSSLY INTACT PSYCHOLOGICAL: MINI MENTAL ASSMT INTACT DIAGNOSTIC STUDIES [place] [address] [place] [id number] IMAGING REPORT Signed PATIENT: EVELIA LICEA MR#: [id number] : 1955 SEX: M AGE: 70 LOCATION: [facility] ORDER 1411 STATUS: REG REPORT#: [id number] SERVICE 1409 REASON: SOB ORDERING PHYSICIAN: RONNI MONTES PROCEDURE: CXR1VW - CHEST 1VW EXAM: XR Chest, 1 View. CLINICAL HISTORY: SOB. COMPARISON: None provided. FINDINGS: LUNGS: The lung dai are hyperexpanded compatible with underlying COPD. No consolidation. PLEURAL SPACES: No pleural effusion or pneumothorax. HEART: The heart, mediastinum, and pulmonary vascularity are within normal limits. No mediastinal or hilar adenopathy is defined. BONES: No pathologic skeletal findings are evident. Midline sternotomy sutures are seen. IMPRESSION: 1. Mild hyperexpanded chest with COPD changes. /[place] DICTATED BY: KENJI CAMPBELL MD DATE: 07/07/251558 ELECTRONICALLY SIGNED BY: KENJI CAMPBELL MD DATE: 07/07/251558 IMPRESSION ASSESSMENT: End-stage renal disease Hyponatremia. Anemia. Diabetes mellitus. Hypertension. Status post PermCath placement PLAN PLAN: Peripheral smear shows normocytic normochromic cells, teardrop cells, schistocytes, normal platelets Hypersegmented neutrophils possibly uremia induced rouleaux formation We will order SPEP and free light chain Follow CBC in the morning Continue medical management per hospitalist Continue treatment per Nephrology. Hemoglobin 7.8 grams/deciliter, patient does not require blood products at this time. Transfuse blood products if hemoglobin is less than 7 grams/deciliter JORY LEGGETT Jul 09, 2025 16:09
[2025-07-10] VITALS (19 sets, daily range): BP systolic 127–174; BP diastolic 65–81; PULSE 66–81; RESP 14–20; TEMP 97.9–99.4; O2SAT 95
[2025-07-10 05:50] LABS: IMMATURE GRANULOCYTE ABSOLUTE 0.01 K/uL (0-1); NUCLEATED RED BLOOD CELLS 0.0 % (0.0-0.19); PLATELET COUNT (AUTO) 73 K/uL (130-400); RED BLOOD CELL COUNT(AUTO) 2.32 MIL/uL (4.50-6.20); RED CELL DISTRIBUTION WIDTH 13.8 % (11.0-15.5); WHITE BLOOD COUNT (AUTO) 3.7 K/uL (4.8-10.8)
[2025-07-10 06:12] LABS: ASPARTATE AMINOTRANSFERASE 12.0 U/L (10-37); CREATININE 6.7 mg/dL (0.5-1.3); GLOMERULAR FILTR. RATE CALC 8.0 mL/min (>90); GLUCOSE,RANDOM 103.0 mg/dL (70-105); PHOSPHORUS 5.8 mg/dL (2.5-4.9); SODIUM SERUM 134.0 mmol/L (136-145); TOTAL PROTEIN, SERUM 6.4 g/dL (6.0-8.3)
[2025-07-10 06:24] LABS: UREA NITROGEN, BLOOD 75.0 mg/dL (7-18)
[2025-07-10] MEDS: CYANOCOBALAMIN (VITAMIN B-12) 1,000 MCG TABLET PO SCH (08:48)
--- NOTE | 2025-07-10 09:02 | PN ---
NEPHROLOGY NOTE SUBJECTIVE: The patient has been evaluated and seen several times. Seen for dialysis multiple times. No fevers, chills, or rigors. No cough, expectoration or hemoptysis. No other associated findings. The patient has renal failure, leukopenia, thrombocytopenia, being seen by Hematology also. The patient has end stage renal disease. PHYSICAL EXAMINATION: GENERAL: Shows pale, in no other distress. VITAL SIGNS: Blood pressure is 160/79, pulse 69, respiratory rate is 18, afebrile. HEENT: Head is atraumatic, normocephalic. Pupils are round, reactive to light. Sclerae are anicteric. Conjunctivae are not pale. Oral mucosa is not dry. NECK: Supple. No masses or bruits palpated. Thyroid is palpable. Neck has no bruits. LABORATORY DATA: Labs and old records reviewed. IMAGING STUDIES: Imaging studies are personally reviewed. PROBLEMS: * Renal failure. * Anemia. PLAN: Plan is to continue dialysis support. Continue monitoring of renal function. Follow up on overall status. Nondominant arm to be preserved. We will be considering surgical evaluation for AV access. The patient was evaluated and seen several times today. TID: [id number] RECEIPT: [id number]
--- NOTE | 2025-07-10 11:35 | PN ---
HPI: A 70-year-old male with hypertension, diabetes mellitus, chronic tobacco use, CAD and CKD, who presented to the hospital with bilateral leg swelling. The patient also complains of shortness of breath. The patient was seen in the clinic by Nephrology sometime this week and was told to go to the Emergency Room for possible initiation of dialysis. BNP is elevated at 661. Sodium 126 and potassium of 5.0. BUN was 97 and creatinine 0.3. Bicarbonate is low at 16. Chloride also is low at 89. Denies fever or chills. No cough. No hemoptysis or pleuritic pain. Chest x-ray shows COPD changes. Patient with acute renal failure with the patient was started on hemodialysis REVIEW OF SYSTEMS CONSTITUTIONAL: FEVER; No FEVER; SWEATS; No SWEATS; CHILLS; No CHILLS, No WEIGHT LOSS HEENT: JAUNDICE; No JAUNDICE; SORE THROAT; No SORE THROAT; SINUS PRESSURE; No S INUS PRESSURE, No VISION CHANGES RESPIRATORY: COUGH; No COUGH; CHEST PAIN; No CHEST PAIN, No SHORTNESS OF BREATH, No HEMOPTYSIS CARDIOVASCULAR: PALPATIONS; No PALPATIONS, No DYSPNEA ON EXERTION, No SYNCOPE GASTROINTESTINAL: No NAUSEA, No VOMITING, No DIARRHEA, No DYSPHAGIA, No CONSTIPATION, No ABDOMINAL PAIN, No HEMATEMESIS, No HEMATOCHEZIA, No MELENA GENITOURINARY: No DYSURIA, No HEMATURIA HEMATOLOGIC/LYMPHATIC: No EASY BRUISING, No CERVICAL ADENOPATHY, No AXILLARY ADENOPATHY, No INGUINAL ADENOPATHY MUSCULOSKELETAL: BONE PAIN; No BONE PAIN, No MASS; NORMAL RANGE OF MOTION; No N ORMAL RANGE OF MOTION SKIN/BREASTS: BREAST MASS; No BREAST MASS, No NIPPLE INVERSION, No RASH NEUROLOGICAL: No WEAKNESS-EXTREMETIES, No DIPLOPIA, No NUMBNESS, No TINGLING PSYCHOLOGICAL: No SUICIDAL IDEATION PHYSICAL EXAM VITALS: Vital Signs Date Time Temp Pulse Resp B/P (MAP) Pulse Ox O2 Delivery O2 Flow Rate FiO2 07/09/25 13:45 97.9 69 14 160/79 100 Room Air 07/09/25 11:45 21 07/08/25 20:00 0 GENERAL: ALERT, ORIENTED, APPEARS-NO ACUTE DISTRESS EYES: SCLERAE ANICTERIC, PUPILS EQUAL/REACTIVE, EXTRAOCULAR MUSCLES INTCT ENT/NECK: ORAL MUCOSA W/O LESIONS, OROPHARYNX IS CLEAR, NECK SUPPLE W/O MASSES RESPIRATORY: LUNGS CLEAR-AUSC/PERCUS CARDIOVASCULAR: REGULAR RATE GASTROINTESTINAL: ABDOMEN IS SOFT HEMATOLOGY/LYMPHATIC: No CERVICAL ADENOPATHY, No SUPRACLAVICULR ADENOPATHY, No AXILLARY ADENOPATHY, No INGUINAL ADENOPATHY MUSCULOSKELETAL: CYANOSIS-EXTREMETIES; No CYANOSIS-EXTREMETIES, No CLUBBING; E [place] SKIN/BREASTS: MASSES; No MASSES, No RASH, No HIVES NEUROLOGICAL: GROSSLY INTACT PSYCHOLOGICAL: MINI MENTAL ASSMT INTACT IMPRESSION Neutropenia Anemia Thrombocytopenia End-stage renal disease Hyponatremia. Diabetes mellitus. Hypertension. Status post PermCath placement PLAN PLAN: Peripheral smear shows normocytic normochromic cells, teardrop cells, schistocytes, normal platelets Hypersegmented neutrophils possibly uremia induced rouleaux formation We will order SPEP and free light chain Follow CBC in the morning Continue medical management per hospitalist Continue treatment per Nephrology. Hemoglobin 7.8 grams/deciliter, patient does not require blood products at this time. Transfuse blood products if hemoglobin is less than 7 grams/deciliter Vitals/Labs Vital Signs Date Time Temp Pulse Resp B/P (MAP) Pulse Ox O2 Delivery O2 Flow Rate FiO2 07/10/25 08:00 99.3 74 16 155/66 95 Room Air 21 07/09/25 20:00 0 Laboratory Tests 07/10/25 05:35 Medications Current Medications Sodium Bicarbonate 650 mg BID PO Last administered on 07/10/25at 08:48; Start 07/07/25 at 21:00; Stop 08/06/25 at 20:59 Sodium Chloride 1,000 mg TID PO Last administered on 07/10/25at 08:48; Start 07/07/25 at 21:00; Stop 08/06/25 at 20:59 Insulin Human Regular INSULIN SLIDING SCAL... ACHS SQ Last administered on 07/09/25at 18:23; Start 07/07/25 at 16:30; Stop 08/06/25 at 16:29 Dextrose 50 ml AD PRN IV; Start 07/07/25 at 15:30; Stop 08/06/25 at 15:29 Glucagon 1 mg AD PRN IM; Start 07/07/25 at 15:30; Stop 08/06/25 at 15:29 Heparin Sodium (Porcine) 5,000 unit Q12H SQ Last administered on 07/10/25at 03:25; Start 07/07/25 at 15:30; Stop 08/06/25 at 15:29 Acetaminophen 650 mg Q6H PRN PO; Start 07/07/25 at 15:30; Stop 08/06/25 at 15:29 Ondansetron HCl 4 mg Q6H PRN IVP; Start 07/07/25 at 15:30; Stop 08/06/25 at 15:29 Amlodipine Besylate 5 mg DAILY PO Last administered on 07/10/25at 08:48; Start 07/08/25 at 09:00; Stop 08/07/25 at 08:59 Atorvastatin Calcium 10 mg AM PO Last administered on 07/10/25at 08:48; Start 07/08/25 at 09:00; Stop 08/07/25 at 08:59 Ibuprofen 600 mg Q6H PRN PO; Start 07/07/25 at 19:00; Stop 08/06/25 at 18:59 Metoprolol Tartrate 50 mg BIDAC PO Last administered on 07/09/25at 18:21; Start 07/08/25 at 07:30; Stop 08/07/25 at 07:29 Torsemide 20 mg DAILY PO Last administered on 07/08/25at 09:30; Start 07/08/25 at 09:00; Stop 07/08/25 at 14:16; Status DC Home Med (Cholecalciferol (Vitamin D3) 25 MCG) DAILY PO; Start 07/08/25 at 09:00; Stop 08/07/25 at 08:59 Pantoprazole Sodium 40 mg DAILY PO Last administered on 07/10/25at 08:48; Start 07/08/25 at 09:00; Stop 08/07/25 at 08:59 Ferrous Sulfate 325 mg DAILY PO Last administered on 07/10/25at 08:48; Start 07/08/25 at 09:00; Stop 08/07/25 at 08:59 Vitamin B Complex/ Vit C/Folic Acid 1 cap DAILY PO; Start 07/08/25 at 09:00; Stop 07/07/25 at 23:18; Status DC Vitamin B Complex/ Vit C/Folic Acid 1 cap DAILY PO Last administered on 07/10/25at 08:48; Start 07/08/25 at 09:00; Stop 08/07/25 at 08:59 Furosemide 80 mg BID IV Last administered on 07/10/25at 08:49; Start 07/08/25 at 14:30; Stop 08/07/25 at 14:29 Epoetin Trevor-epbx 10,000 unit ONCE ONCE SQ Last administered on 07/08/25at 15:19; Start 07/08/25 at 14:30; Stop 07/08/25 at 14:31; Status DC Lidocaine HCl 50 ml STK-MED ONCE .ROUTE; Start 07/09/25 at 07:18; Stop 07/09/25 at 07:18; Status DC Heparin Sodium (Porcine) 1,000 unit STK-MED ONCE .ROUTE; Start 07/09/25 at 07:18; Stop 07/09/25 at 07:19; Status DC Heparin Sodium/ Sodium Chloride 500 ml @ As Directed STK-MED ONCE IV; Start 07/09/25 at 07:19; Stop 07/09/25 at 07:19; Status DC Fentanyl Citrate 100 mcg STK-MED ONCE .ROUTE; Start 07/09/25 at 07:38; Stop 07/09/25 at 07:38; Status DC Midazolam HCl 2 mg STK-MED ONCE .ROUTE; Start 07/09/25 at 07:38; Stop 07/09/25 at 07:38; Status DC Sodium Chloride 1,000 ml @ 0 mls/hr ONCE IV Last administered on 07/09/25at 11:48; Start 07/09/25 at 11:00; Stop 08/08/25 at 10:59 Hydralazine HCl 10 mg Q8H5 PRN IV Last administered on 07/09/25at 23:41; Start 07/09/25 at 16:00; Stop 08/08/25 at 15:59 Folic Acid 1 mg DAILY PO Last administered on 07/10/25at 08:48; Start 07/10/25 at 09:00; Stop 08/09/25 at 08:59 Vitamin B Complex 1,000 mcg DAILY PO Last administered on 07/10/25at 08:48; Start 07/10/25 at 09:00; Stop 08/09/25 at 08:59 ALONSO DOMINGUEZ MD Jul 10, 2025 11:34
--- NOTE | 2025-07-10 11:42 | PN ---
NEPHROLOGY NOTE SUBJECTIVE: The patient has been evaluated and seen for dialysis and seen several times. No fever, chills, or rigors. No cough, expectoration or hemoptysis. The patient has no abdominal pain, no nausea or vomiting. No chest pain, orthopnea, or PND. The other systemic review is unchanged from the past. The patient remains generally weak. The patient has severe anemia. PLAN: Plan is to continue dialysis support. Continue monitoring of renal function. Continue dialysis support. Follow up on renal function. Follow up on electrolytes. Intake, output, weight and overall status will be monitored. The patient was evaluated and seen for dialysis multiple times. The patient's nondominant arm being preserved and the patient will have followup with the vascular surgeon. Outpatient dialysis being arranged. The patient is evaluated on dialysis multiple times. TID: [id number] RECEIPT: [id number]
--- NOTE | 2025-07-10 15:02 | PN ---
INFECTIOUS DISEASE PROGRESS NOTE Date of Service: Jul 10, 2025 SUBJECTIVE: This is a 70-year-old male patient with end-stage renal disease, new onset dialysis. Patient was started on dialysis yesterday and 1.0 L removed. No dyspnea observe and patient is saturating 95-96% on room air. Case management to work on setting up dialysis as recommended by manufacturing technology professor. PHYSICAL EXAM EYES: Anicteric. Pupils equal and reactive. HENT: No oral thrush seen, moist Oral mucosa. NECK: Supple, no JVD or thyromegaly. LUNGS: Good air entry. No rales, no rhonchi. CARDIOVASCULAR: S1, S2 regular. No murmur heard. ABDOMEN: Soft, non tender, bowel sounds present. CENTRAL NERVOUS SYSTEM: Awake, alert, oriented x 3. SKIN: No rashes, no swelling. LYMPHATICS: No peripheral lymphadenopathy MUSCULOSKELETAL: No joint swelling, erythema or tenderness. EXTREMITIES: No cyanosis or clubbing. Bilateral lower extremity edema, improved. BACK: No deformity, no pressure ulcer. GENITOURINARY: No dysuria or hematuria. Vital Sign (Last 12 Hours) 07/10/25 07/10/25 07/10/25 03:37 08:00 13:23 Temp 98.1 99.3 Pulse 75 74 Resp 20 16 B/P (MAP) 161/77 155/66 Pulse Ox 96 95 95 O2 Delivery Room Air Room Air Room Air* O2 Flow Rate 0 FiO2 21 21 Intake & Output (last 24hrs) 07/09/25 07/09/25 07/10/25 15:00 23:00 07:00 Intake Total 130.0 ml 240 ml 100 ml Output Total 1000 ml 1650 ml Balance -870.0 ml 240 ml -1550 ml LABS: Laboratory: Test 07/10/25 11:15 07/10/25 05:35 07/09/25 16:13 07/09/25 04:22 Range/Units Whole Blood Glucose 165 #H 70-110 MG/DL White Blood Count 3.7 L 4.8-10.8 K/uL Red Blood Count 2.32 L 4.50-6.20 MIL/uL Hemoglobin 7.5 L 14.0-18.0 g/dL Hematocrit 21.2 L 42-54 % Mean Corpuscular Volume 91.4 79-99 fL Mean Corpuscular Hemoglobin 32.3 27.0-33.0 pg Mean Corpuscular Hemoglobin Concent 35.4 32.0-36.0 g/dL Red Cell Distribution Width 13.8 11.0-15.5 % Platelet Count 73 L 130-400 K/uL Mean Platelet Volume 11.1 H 7.5-10.5 fL Immature Granulocyte % (Auto) 0.3 0-1 % Neutrophils (%) (Auto) 66.6 40.0-77.0 % Lymphocytes (%) (Auto) 18.7 L 21.0-51.0 % Monocytes (%) (Auto) 11.7 3.0-13.0 % Eosinophils (%) (Auto) 2.4 0.0-8.0 % Basophils (%) (Auto) 0.3 0.0-5.0 % Neutrophils # (Auto) 2.5 1.8-7.7 K/uL Lymphocytes # (Auto) 0.7 L 1.0-4.8 K/uL Monocytes # (Auto) 0.4 0.1-1.0 K/uL Eosinophils # (Auto) 0.09 0.00-0.70 K/uL Basophils # (Auto) 0.01 0.00-0.20 K/uL Absolute Immature Granulocyte (auto 0.01 0-1 K/uL Nucleated Red Blood Cells 0.0 0.0-0.19 % Sodium Level 134 L 136-145 mmol/L Potassium Level 3.7 3.5-5.1 mmol/L Chloride Level 96 L 101-111 mmol/L Carbon Dioxide Level 25 21-32 mmol/L Blood Urea Nitrogen 75 *H 7-18 mg/dL Creatinine 6.7 H 0.5-1.3 mg/dL Glomerular Filtration Rate Calc 8 >90 mL/min Random Glucose 103 70-105 mg/dL Total Calcium 7.5 L 8.5-10.1 mg/dL Phosphorus Level 5.8 H 2.5-4.9 mg/dL Total Bilirubin 0.7 0.2-1.0 mg/dL Aspartate Amino Transf (AST/SGOT) 12 10-37 U/L Alanine Aminotransferase (ALT/SGPT) 24 12-78 U/L Alkaline Phosphatase 76 50-136 U/L Total Protein 6.4 6.0-8.3 g/dL Albumin 3.8 3.5-5.0 g/dL Bedside Glucose Comment Notified Nurse Segmented Neutrophils % 83 H 40-70 % Band Neutrophils % 1 0-2 % Lymphocytes % (Manual) 10 L 22-44 % Monocytes % (Manual) 6 2-9 % Differential Comment MANUAL DIFFERENTIAL White Cell Morphology Comment Platelet Morphology Comment DECREASED Red Blood Cell Morphology HYPOCHROM CELLS 1+ Prothrombin Time 10.5 9.6-11.6 SEC Prothromb Time International Ratio 0.99 0.85-1.15 Activated Partial Thromboplast Time 29.1 26.3-35.5 SEC Test 07/08/25 15:28 Range/Units Hemoglobin A1c 4.6 4.0-6.0 % Estimated Average Glucose (eAG) 85 70-126 mg/dL Ferritin 421 H 30-400 ng/mL Triglycerides Level 49 30-200 mg/dL Cholesterol Level 131 <200 mg/dL LDL Cholesterol 49 0-99 mg/dL HDL Cholesterol 71 29-71 mg/dL Hepatitis B Surface Antigen. Non-Reactive Nonreactive Hepatitis B Surface Antibody. Negative L Reactive Hepatitis B Core Total Antibody. Non-Reactive Nonreactive Hepatitis C Antibody Non-Reactive Nonreactive HIV (1&2) Antibody Non-Reactive Negative HIV P24 Antigen, Qualitative Non-Reactive Negative ASSESSMENT: End-stage renal disease, status post PermCath placement, new onset dialysis. Hyponatremia, resolved. Anemia. Diabetes mellitus. Hypertension. PLAN: Continue diuretics. Continue antidiabetics. Continue GI prophylaxis. Oxygen support as needed. Continue hypertensive medications Continue dialysis as per Nephrology recommendation This case was reviewed and discussed with my supervising physician Dr. Husain and the above assessment and plan was formulated and agreed upon. ATTESTATION BY PHYSICIAN I have seen and examined the patient. I reviewed the documentation, medical decision making, and treatment plan as noted by the mid-level provider above. I agree with the findings and plan of care. BRIGITTE HUSAIN MD, [facility] Jul 10, 2025 15:02
[2025-07-10] MEDS: 0.9%NACL 1000ML 1,000 ML IV SCH (18:00)
--- NOTE | 2025-07-10 23:50 | PN ---
NEPHROLOGY NOTE SUBJECTIVE: The patient has been evaluated and seen for dialysis and seen several times. The patient has no fevers, chills, or rigors. No other associated findings. No other aggravating or relieving factor. The patient does have weakness, anxiety. PLAN: The patient is to continue dialysis support, Epogen as needed, iron as needed, and we will get AV access. Outpatient dialysis will be arranged. PermCath has been done. The patient is evaluated and seen for dialysis and seen several times. Condition remains guarded. TID: [id number] RECEIPT: [id number]
[2025-07-11] VITALS (11 sets, daily range): BP systolic 125–163; BP diastolic 68–78; PULSE 67–91; RESP 16–20; TEMP 97.7–98.4; O2SAT 97–98
--- NOTE | 2025-07-11 00:57 | PN ---
NEPHROLOGY NOTE DATE OF SERVICE: 07/10/2025. SUBJECTIVE: The patient has been evaluated and seen for dialysis and seen several times. The patient has multiple problems. No other associated symptom. No other aggravating or relieving factor. The patient is generally weak. PROBLEMS: She has: Anemia. Renal failure. Anxiety. History of alcohol use. Hyponatremia. PLAN: We will be monitoring closely. I have discussed with other team physicians. The patient has been evaluated and seen for dialysis and seen several times. Overall condition is critically guarded. I have discussed with other team members in detail. Fluid restriction is advised. Thank you for this patient. TID: [id number] RECEIPT: [id number]
[2025-07-11 06:12] LABS: NUCLEATED RED BLOOD CELLS 0.0 % (0.0-0.19); PLATELET COUNT (AUTO) 58 K/uL (130-400); RED BLOOD CELL COUNT(AUTO) 2.14 MIL/uL (4.50-6.20); RED CELL DISTRIBUTION WIDTH 13.7 % (11.0-15.5); WHITE BLOOD COUNT (AUTO) 2.8 K/uL (4.8-10.8)
[2025-07-11 06:34] LABS: ASPARTATE AMINOTRANSFERASE 11.0 U/L (10-37); CREATININE 5.0 mg/dL (0.5-1.3); GLOMERULAR FILTR. RATE CALC 12.0 mL/min (>90); GLUCOSE,RANDOM 117.0 mg/dL (70-105); PHOSPHORUS 4.6 mg/dL (2.5-4.9); SODIUM SERUM 139.0 mmol/L (136-145); TOTAL PROTEIN, SERUM 6.5 g/dL (6.0-8.3); UREA NITROGEN, BLOOD 47.0 mg/dL (7-18)
[2025-07-11 07:00] LABS: LYMPHOCYTES % (MANUAL) 19 % (22-44); MAN.DIFF COMMENT-IMPRESSION MANUAL DIFFERENTIAL; MONOCYTES % (MANUAL) 10 % (2-9); PLATELET MORPHOLOGY COMMENT DECREASED; SEGMENTED NEUTROPHILS % 71 % (40-70); WBC MORPHOLOGY SMUDGE CELLS 1+
--- NOTE | 2025-07-11 10:55 | PN ---
A 70-year-old male with hypertension, diabetes mellitus, chronic tobacco use, CAD and CKD, who presented to the hospital with bilateral leg swelling. The patient also complains of shortness of breath. The patient was seen in the clinic by Nephrology sometime this week and was told to go to the Emergency Room for possible initiation of dialysis. BNP is elevated at 661. Sodium 126 and potassium of 5.0. BUN was 97 and creatinine 0.3. Bicarbonate is low at 16. Chloride also is low at 89. Denies fever or chills. No cough. No hemoptysis or pleuritic pain. Chest x-ray shows COPD changes. Patient with acute renal failure with the patient was started on hemodialysis. Hemoglobin level is 6.9 g/deciliter PHYSICAL EXAM GENERAL: ALERT, ORIENTED, APPEARS-NO ACUTE DISTRESS EYES: SCLERAE ANICTERIC, PUPILS EQUAL/REACTIVE, EXTRAOCULAR MUSCLES INTCT ENT/NECK: ORAL MUCOSA W/O LESIONS, OROPHARYNX IS CLEAR, NECK SUPPLE W/O MASSES RESPIRATORY: LUNGS CLEAR-AUSC/PERCUS CARDIOVASCULAR: REGULAR RATE GASTROINTESTINAL: ABDOMEN IS SOFT HEMATOLOGY/LYMPHATIC: No CERVICAL ADENOPATHY, No SUPRACLAVICULR ADENOPATHY, No AXILLARY ADENOPATHY, No INGUINAL ADENOPATHY MUSCULOSKELETAL: CYANOSIS-EXTREMETIES; No CYANOSIS-EXTREMETIES, No CLUBBING; E [place] SKIN/BREASTS: MASSES; No MASSES, No RASH, No HIVES NEUROLOGICAL: GROSSLY INTACT PSYCHOLOGICAL: MINI MENTAL ASSMT INTACT IMPRESSION Neutropenia Anemia. Hemoglobin level is 6.9 g/deciliter Thrombocytopenia. Platelet count 58K End-stage renal disease Hyponatremia. Diabetes mellitus. Hypertension. Status post PermCath placement PLAN 1. Peripheral blood smear showed red blood cells to be normocytic normochromic. There was no fragment cell or schistocyte. There is no teardrop cell. There is no rouleaux phenomena. There is no pelger-Huet cell. White blood cell with no blasts. Platelet was normal in morphology and count. 2. There was hypersegmented neutrophils. This patient to be started on folic acid 1 mg p.o. daily and vitamin B12 1000 mcg p.o. daily. 3. There is rouleaux phenomena. We will ask for SPEP, UPEP and free light chain. If there is monoclonal protein we will do a bone marrow biopsy. 4. Continue dialysis as per nephrology 5. This patient pancytopenia could be due to uremia and it will improve with the patient dialyzed and optimize his condition. 6. Patient to receive 1 unit of packed red blood cell after type cross and match. Premedication with dexamethasone 10 mg and Benadryl 25 mg Vitals/Labs Vital Signs Date Time Temp Pulse Resp B/P (MAP) Pulse Ox O2 Delivery O2 Flow Rate FiO2 07/11/25 08:22 97 Room Air* 0 21 07/11/25 08:17 97.7 70 16 150/76 Laboratory Tests 07/11/25 06:00 Medications Current Medications Sodium Bicarbonate 650 mg BID PO Last administered on 07/11/25 10:08; Start 07/07/25 at 21:00; Stop 08/06/25 at 20:59 Sodium Chloride 1,000 mg TID PO Last administered on 07/11/25 10:08; Start 07/07/25 at 21:00; Stop 08/06/25 at 20:59 Insulin Human Regular INSULIN SLIDING SCAL... ACHS SQ Last administered on 07/09/25at 18:23; Start 07/07/25 at 16:30; Stop 08/06/25 at 16:29 Dextrose 50 ml AD PRN IV; Start 07/07/25 at 15:30; Stop 08/06/25 at 15:29 Glucagon 1 mg AD PRN IM; Start 07/07/25 at 15:30; Stop 08/06/25 at 15:29 Heparin Sodium (Porcine) 5,000 unit Q12H SQ Last administered on 07/10/25at 14:10; Start 07/07/25 at 15:30; Stop 07/10/25 at 19:27; Status DC Acetaminophen 650 mg Q6H PRN PO; Start 07/07/25 at 15:30; Stop 08/06/25 at 15:29 Ondansetron HCl 4 mg Q6H PRN IVP; Start 07/07/25 at 15:30; Stop 08/06/25 at 15:29 Amlodipine Besylate 5 mg DAILY PO Last administered on 07/11/25at 10:08; Start 07/08/25 at 09:00; Stop 08/07/25 at 08:59 Atorvastatin Calcium 10 mg AM PO Last administered on 07/11/25at 10:08; Start 07/08/25 at 09:00; Stop 08/07/25 at 08:59 Ibuprofen 600 mg Q6H PRN PO; Start 07/07/25 at 19:00; Stop 08/06/25 at 18:59 Metoprolol Tartrate 50 mg BIDAC PO Last administered on 07/11/25at 06:35; Start 07/08/25 at 07:30; Stop 08/07/25 at 07:29 Torsemide 20 mg DAILY PO Last administered on 07/08/25at 09:30; Start 07/08/25 at 09:00; Stop 07/08/25 at 14:16; Status DC Home Med (Cholecalciferol (Vitamin D3) 25 MCG) DAILY PO; Start 07/08/25 at 09:00; Stop 08/07/25 at 08:59 Pantoprazole Sodium 40 mg DAILY PO Last administered on 07/11/25at 10:08; Start 07/08/25 at 09:00; Stop 08/07/25 at 08:59 Ferrous Sulfate 325 mg DAILY PO Last administered on 07/11/25at 10:08; Start 07/08/25 at 09:00; Stop 08/07/25 at 08:59 Vitamin B Complex/ Vit C/Folic Acid 1 cap DAILY PO; Start 07/08/25 at 09:00; Stop 07/07/25 at 23:18; Status DC Vitamin B Complex/ Vit C/Folic Acid 1 cap DAILY PO Last administered on 07/11/25at 10:08; Start 07/08/25 at 09:00; Stop 08/07/25 at 08:59 Furosemide 80 mg BID IV Last administered on 07/11/25at 10:07; Start 07/08/25 at 14:30; Stop 08/07/25 at 14:29 Epoetin Trevor-epbx 10,000 unit ONCE ONCE SQ Last administered on 07/08/25at 15:19; Start 07/08/25 at 14:30; Stop 07/08/25 at 14:31; Status DC Lidocaine HCl 50 ml STK-MED ONCE .ROUTE; Start 07/09/25 at 07:18; Stop 07/09/25 at 07:18; Status DC Heparin Sodium (Porcine) 1,000 unit STK-MED ONCE .ROUTE; Start 07/09/25 at 07:18; Stop 07/09/25 at 07:19; Status DC Heparin Sodium/ Sodium Chloride 500 ml @ As Directed STK-MED ONCE IV; Start 07/09/25 at 07:19; Stop 07/09/25 at 07:19; Status DC Fentanyl Citrate 100 mcg STK-MED ONCE .ROUTE; Start 07/09/25 at 07:38; Stop 07/09/25 at 07:38; Status DC Midazolam HCl 2 mg STK-MED ONCE .ROUTE; Start 07/09/25 at 07:38; Stop 07/09/25 at 07:38; Status DC Sodium Chloride 1,000 ml @ 0 mls/hr ONCE IV Last administered on 07/09/25at 11:48; Start 07/09/25 at 11:00; Stop 08/08/25 at 10:59 Hydralazine HCl 10 mg Q8H5 PRN IV Last administered on 07/09/25at 23:41; Start 07/09/25 at 16:00; Stop 08/08/25 at 15:59 Folic Acid 1 mg DAILY PO Last administered on 07/11/25at 10:08; Start 07/10/25 at 09:00; Stop 08/09/25 at 08:59 Vitamin B Complex 1,000 mcg DAILY PO Last administered on 07/11/25at 10:08; Start 07/10/25 at 09:00; Stop 08/09/25 at 08:59 Sodium Chloride 1,000 ml @ 0 mls/hr ONCE IV; Start 07/10/25 at 18:00; Stop 08/09/25 at 17:59 Heparin Sodium (Porcine) 5,000 unit Q12H SQ Last administered on 07/11/25at 10:17; Start 07/11/25 at 09:00; Stop 08/10/25 at 08:59 Dexamethasone Sodium Phosphate 10 mg ONCE ONCE IV; Start 07/11/25 at 09:30; Stop 07/11/25 at 09:18; Status DC Dexamethasone Sodium Phosphate 10 mg ONCE ONCE IV; Start 07/11/25 at 09:30; Stop 07/11/25 at 09:31; Status DC ALONSO DOMINGUEZ MD Jul 11, 2025 10:55
--- NOTE | 2025-07-11 11:49 | NUR ---
TEACHING PROVIDED RE: BLOOD TRANSFUSION. PER PATIENT, DAUGHTER WILL BE BY LATER TO SIGN CONSENT FOR BLOOD TRANSFUSION
--- NOTE | 2025-07-11 13:02 | NUR ---
INFORMED FROM BLOOD BANK THAT BLOOD IS READY FOR TRANSFUSION; PENDING DAUGHTER TO ARRIVE TO SIGN INFORMED CONSENT FOR BLOOD TRANSFUSION
--- NOTE | 2025-07-11 14:00 | NUR ---
DAUGHTER AT BEDSIDE. CONSENT FOR BLOOD TRANSFUSION SIGNED
--- NOTE | 2025-07-11 14:00 | NUR ---
[facility] Met w pt and family this afternoon to discuss Md orders for outpt HD. JAVIER/PC obtained for [facility] Dr Iglesias spoke w pt and family regarding poss AVgraft/fistula prior to dc. Referral/order send to [facility]. 3rd HD pending.
--- NOTE | 2025-07-11 14:20 | PN ---
NEPHROLOGY PROGRESS NOTE Date/Time Patient Seen: Jul 11, 2025 SUBJECTIVE: This is a 70-year-old male with hypertension, diabetes mellitus, chronic tobacco use, CAD and CKD. He presented to the hospital with bilateral leg swelling. He follows up [place] [facility] for anemia. He was noted to have elevated BUN/creatinine Patient follows up in the renal clinic and initially refused dialysis We are consulted for renal failure. Renal function continue to worsen He has been initiated on hemodialysis Tolerated dialysis without difficulty via PermCath yesterday. Pending CT surgeon recommendations regarding AV access creation Case management coordinating outpatient dialysis chair [facility] Sung michelle Hemoglobin was noted, pending PRBC transfusion later today He continues on Epogen He is complaining of itchiness He was seen in the medical floor, in no acute distress Multiple family members at the bedside Prognosis remains guarded REVIEW OF SYSTEMS: GENERAL: Positive for itchiness NEUROLOGIC: Negative for any blurry vision, blind spots, double vision, facial asymmetry, dysphagia, dysarthria, hemiparesis, hemisensory deficits, vertigo, ataxia. HEENT: Negative for any head trauma, neck trauma, neck stiffness, photophobia, phonophobia, sinusitis, rhinitis. CARDIAC: Negative for any chest pain, dyspnea on exertion, paroxysmal nocturnal dyspnea, peripheral edema. PULMONARY: Negative for any shortness of breath, wheezing, COPD, or TB exposure. GASTROINTESTINAL: Negative for any abdominal pain, nausea, vomiting, bright red blood per rectum, melena. GENITOURINARY: Negative for any dysuria, hematuria, incontinence. INTEGUMENTARY: Negative for any rashes, cuts, insect bites. RHEUMATOLOGIC: Negative for any joint pains, photosensitive rashes, history of vasculitis or kidney problems. HEMATOLOGIC: Negative for any abnormal bruising, frequent infections or bleeding. Vital Signs (last 8hr) Date Time Temp Pulse Resp B/P (MAP) Pulse Ox O2 Delivery O2 Flow Rate FiO2 07/11/25 11:49 98.1 74 16 129/78 99 Room Air 07/11/25 08:22 97 Room Air* 0 21 07/11/25 08:17 97.7 70 16 150/76 97 Room Air PHYSICAL EXAM: GENERAL: Alert and oriented x 3. No acute distress. Well-nourished. EYES: EOMI. Anicteric. HENT: Moist mucous membranes. No scleral icterus. No cervical lymphadenopathy. LUNGS: Clear to auscultation bilaterally. No accessory muscle use. CARDIOVASCULAR: Regular rate and rhythm. No murmur. No JVD. ABDOMEN: Soft, non-tender and non-distended. No palpable masses. EXTREMITIES: No edema. Non-tender. SKIN: No rashes or lesions. Warm. NEUROLOGIC: No focal neurological deficits. CN II-XII grossly intact, but not individually tested. PSYCHIATRIC: Cooperative. Appropriate mood and affect. Current Medications Medications (Trade) Dose Ordered Sig/Lionel Route Start Time Stop Time Status Last Admin Dose Admin Amlodipine Besylate (NorvASC 5MG TAB) 5 mg DAILY PO 07/08/25 09:00 08/07/25 08:59 07/11/25 10:08 5 MG Atorvastatin Calcium (LIPItor 10MG) 10 mg AM PO 07/08/25 09:00 08/07/25 08:59 07/11/25 10:08 10 MG Epoetin Trevor-epbx (Retacrit) 10,000 unit MWFPHD SQ 07/12/25 16:00 08/11/25 15:59 Ferrous Sulfate (Ferrous Sulfate) 325 mg DAILY PO 07/08/25 09:00 08/07/25 08:59 07/11/25 10:08 325 MG Folic Acid (FOLic ACID 1 MG TABLET) 1 mg DAILY PO 07/10/25 09:00 08/09/25 08:59 07/11/25 10:08 1 MG Furosemide (LASix 40MG VIAL) 80 mg BID IV 07/08/25 14:30 08/07/25 14:29 07/11/25 10:07 80 MG Heparin Sodium (Porcine) (HEParin 5,000 UNIT VIAL) 5,000 unit Q12H SQ 07/07/25 15:30 07/10/25 19:27 DC 07/10/25 14:10 5,000 UNIT Heparin Sodium (Porcine) (HEParin 5,000 UNIT VIAL) 5,000 unit Q12H SQ 07/11/25 09:00 08/10/25 08:59 07/11/25 10:17 5,000 UNIT Home Med (Home Medication) (Cholecalciferol (Vitamin D3) 25 MCG) DAILY PO 07/08/25 09:00 08/07/25 08:59 07/11/25 12:38 1 EACH Insulin Human Regular (humuLIN R 100 UNIT/ML 3ML) INSULIN SLIDING SCAL... ACHS SQ 07/07/25 16:30 08/06/25 16:29 07/11/25 11:43 4 UNIT Lactic Acid (Lachydrin 226gm Lotion) 1 APPLICATION BID TP 07/11/25 21:00 08/10/25 20:59 Metoprolol Tartrate (loprESSOR) 50 mg BIDAC PO 07/08/25 07:30 08/07/25 07:29 07/11/25 06:35 50 MG Pantoprazole Sodium (PROTonix 40MG TAB) 40 mg DAILY PO 07/08/25 09:00 08/07/25 08:59 07/11/25 10:08 40 MG Sodium Bicarbonate (Sodium Bicarbonate) 650 mg BID PO 07/07/25 21:00 08/06/25 20:59 07/11/25 10:08 650 MG Sodium Chloride 1,000 ml @ 0 mls/hr ONCE IV 07/09/25 11:00 08/08/25 10:59 07/09/25 11:48 100 MLS/HR Sodium Chloride 1,000 ml @ 0 mls/hr ONCE IV 07/10/25 18:00 08/09/25 17:59 Sodium Chloride (Sodium Chloride) 1,000 mg TID PO 07/07/25 21:00 08/06/25 20:59 07/11/25 10:08 1,000 MG Torsemide (Demadex) 20 mg DAILY PO 07/08/25 09:00 07/08/25 14:16 DC 07/08/25 09:30 20 MG Vitamin B Complex (Vitamin B-12) 1,000 mcg DAILY PO 07/10/25 09:00 08/09/25 08:59 07/11/25 10:08 1,000 MCG Vitamin B Complex/ Vit C/Folic Acid (Nephrovite Tablet) 1 cap DAILY PO 07/08/25 09:00 08/07/25 08:59 07/11/25 10:08 1 CAP Vitamin B Complex/ Vit C/Folic Acid (Nephrovite Tablet) 1 cap DAILY PO 07/08/25 09:00 07/07/25 23:18 DC LABORATORY: [ ] Hematology Labs: Test 07/11/25 06:00 07/10/25 05:35 Range/Units White Blood Count 2.8 L 4.8-10.8 K/uL Red Blood Count 2.14 L 4.50-6.20 MIL/uL Hemoglobin 6.9 *L 14.0-18.0 g/dL Hematocrit 19.5 *L 42-54 % Mean Corpuscular Volume 91.1 79-99 fL Mean Corpuscular Hemoglobin 32.2 27.0-33.0 pg Mean Corpuscular Hemoglobin Concent 35.4 32.0-36.0 g/dL Red Cell Distribution Width 13.7 11.0-15.5 % Platelet Count 58 L 130-400 K/uL Mean Platelet Volume 10.3 7.5-10.5 fL Segmented Neutrophils % 71 H 40-70 % Lymphocytes % (Manual) 19 L 22-44 % Monocytes % (Manual) 10 H 2-9 % Nucleated Red Blood Cells 0.0 0.0-0.19 % Differential Comment MANUAL DIFFERENTIAL White Cell Morphology Comment SMUDGE CELLS 1+ Platelet Morphology Comment DECREASED Red Blood Cell Morphology HYPOCHROM CELLS 1+ Immature Granulocyte % (Auto) 0.3 0-1 % Neutrophils (%) (Auto) 66.6 40.0-77.0 % Lymphocytes (%) (Auto) 18.7 L 21.0-51.0 % Monocytes (%) (Auto) 11.7 3.0-13.0 % Eosinophils (%) (Auto) 2.4 0.0-8.0 % Basophils (%) (Auto) 0.3 0.0-5.0 % Neutrophils # (Auto) 2.5 1.8-7.7 K/uL Lymphocytes # (Auto) 0.7 L 1.0-4.8 K/uL Monocytes # (Auto) 0.4 0.1-1.0 K/uL Eosinophils # (Auto) 0.09 0.00-0.70 K/uL Basophils # (Auto) 0.01 0.00-0.20 K/uL Absolute Immature Granulocyte (auto 0.01 0-1 K/uL Chemistry Labs: Test 07/11/25 10:42 07/11/25 06:00 07/09/25 16:13 Range/Units Whole Blood Glucose 184 H 70-110 MG/DL Sodium Level 139 136-145 mmol/L Potassium Level 3.5 3.5-5.1 mmol/L Chloride Level 98 L 101-111 mmol/L Carbon Dioxide Level 30 21-32 mmol/L Blood Urea Nitrogen 47 H 7-18 mg/dL Creatinine 5.0 H 0.5-1.3 mg/dL Glomerular Filtration Rate Calc 12 >90 mL/min Random Glucose 117 H 70-105 mg/dL Total Calcium 7.8 L 8.5-10.1 mg/dL Phosphorus Level 4.6 2.5-4.9 mg/dL Magnesium Level 2.00 1.80-2.40 mg/dL Total Bilirubin 0.8 0.2-1.0 mg/dL Aspartate Amino Transf (AST/SGOT) 11 10-37 U/L Alanine Aminotransferase (ALT/SGPT) 21 12-78 U/L Alkaline Phosphatase 71 50-136 U/L Total Protein 6.5 6.0-8.3 g/dL Albumin 3.9 3.5-5.0 g/dL Bedside Glucose Comment Notified Nurse DIAGNOSTICS / RADIOLOGY: [address] [address] IMAGING REPORT Signed PATIENT: EVELIA LICEA MR#: [id number] : 1955 SEX: M AGE: 70 LOCATION: [facility] ORDER 1411 STATUS: REG ER REPORT#: [id number] SERVICE 1409 REASON: SOB ORDERING PHYSICIAN: RONNI MONTES PHOTOVOLTAIC TECHNICIAN PROCEDURE: CXR1VW - CHEST 1VW EXAM: XR Chest, 1 View. CLINICAL HISTORY: SOB. COMPARISON: None provided. FINDINGS: LUNGS: The lung dai are hyperexpanded compatible with underlying COPD. No consolidation. PLEURAL SPACES: No pleural effusion or pneumothorax. HEART: The heart, mediastinum, and pulmonary vascularity are within normal limits. No mediastinal or hilar adenopathy is defined. BONES: No pathologic skeletal findings are evident. Midline sternotomy sutures are seen. IMPRESSION: 1. Mild hyperexpanded chest with COPD changes. /[place] DICTATED BY: KENJI CAMPBELL MD DATE: 07/07/25 1552 ELECTRONICALLY SIGNED BY: KENJI CAMPBELL MD DATE: 07/07/25 7034 ASSESSMENT: Fluid overload Lower extremity edema End-stage renal disease Hyponatremia Metabolic acidosis Diabetes mellitus type 2 Anemia Thrombocytopenia Hypertension PLAN: Labs, diagnostic, radiologic exams reviewed and interpreted by myself and supervising physician. We have reviewed external records in detail Continue with dialysis schedule. Continue with the Epogen 2000 units Draw labs in pediatric tubes Pending PRBC transfusion later today Start Amlactin cream twice a day Pending CT surgeon recommendations regarding AV access creation Case management coordinating outpatient dialysis chair at [facility] Sung martinez Preserve nondominant arm for AV access creation Require close monitoring of renal function and electrolytes Order CBC, CMP, and electrolytes in am Renal diabetic diet BiPAP as necessary, for respiratory distress Monitor blood pressure adjust medication doses as needed Avoid hypotensive episodes May use Dilaudid 0.5 mg IV every 6 hours as needed for severe pain Monitor blood sugars Strict intake, output, and daily weight should be monitored Please renally adjust medications Avoid nephrotoxic and nonsteroidal drugs Avoid contrast if possible Will continue to monitor renal function, anemia, electrolytes Treatment plan discussed with patient Questions were answered We have discussed with the other team physicians in detail about the care plan We will continue to monitor the patient closely ATTESTATION BY PHYSICIAN I have seen and examined the patient. I reviewed the documentation, medical decision making, and treatment plan as noted by the mid-level provider above. I agree with the findings and plan of care. KEENAN BENNETT MD, [facility] Jul 11, 2025 14:20
--- NOTE | 2025-07-11 14:30 | NUR ---
BLOOD TRANSFUSION INITIATED
--- NOTE | 2025-07-11 16:34 | PN ---
INFECTIOUS DISEASE PROGRESS NOTE Date of Service: Jul 11, 2025 SUBJECTIVE: This is a 70-year-old male patient . Case management to work on setting up dialysis as recommended by head nurse. PHYSICAL EXAM EYES: Anicteric. Pupils equal and reactive. HENT: No oral thrush seen, moist Oral mucosa. NECK: Supple, no JVD or thyromegaly. LUNGS: Good air entry. No rales, no rhonchi. CARDIOVASCULAR: S1, S2 regular. No murmur heard. ABDOMEN: Soft, non tender, bowel sounds present. CENTRAL NERVOUS SYSTEM: Awake, alert, oriented x 3. SKIN: No rashes, no swelling. LYMPHATICS: No peripheral lymphadenopathy MUSCULOSKELETAL: No joint swelling, erythema or tenderness. EXTREMITIES: No cyanosis or clubbing. Bilateral lower extremity edema, improved. BACK: No deformity, no pressure ulcer. GENITOURINARY: No dysuria or hematuria. Vital Sign (Last 12 Hours) 07/11/25 07/11/25 07/11/25 07/11/25 08:17 08:22 11:49 14:29 Temp 97.7 98.1 98.1 Pulse 70 74 74 Resp 16 16 18 B/P (MAP) 150/76 129/78 161/75 Pulse Ox 97 97 99 98 O2 Delivery Room Air Room Air* Room Air Room Air O2 Flow Rate 0 FiO2 21 07/11/25 07/11/25 14:35 14:45 Temp 98.2 98.2 Pulse 68 69 Resp 18 18 B/P (MAP) 153/78 151/71 Intake & Output (last 24hrs) 07/10/25 07/10/25 07/11/25 15:00 23:00 07:00 Intake Total 400 ml Output Total 975 ml 1900 ml 700 ml Balance -975 ml -1500 ml -700 ml LABS: Laboratory: Test 07/11/25 16:05 07/11/25 06:00 07/10/25 05:35 Range/Units Whole Blood Glucose 137 H 70-110 MG/DL White Blood Count 2.8 L 4.8-10.8 K/uL Red Blood Count 2.14 L 4.50-6.20 MIL/uL Hemoglobin 6.9 *L 14.0-18.0 g/dL Hematocrit 19.5 *L 42-54 % Mean Corpuscular Volume 91.1 79-99 fL Mean Corpuscular Hemoglobin 32.2 27.0-33.0 pg Mean Corpuscular Hemoglobin Concent 35.4 32.0-36.0 g/dL Red Cell Distribution Width 13.7 11.0-15.5 % Platelet Count 58 L 130-400 K/uL Mean Platelet Volume 10.3 7.5-10.5 fL Segmented Neutrophils % 71 H 40-70 % Lymphocytes % (Manual) 19 L 22-44 % Monocytes % (Manual) 10 H 2-9 % Nucleated Red Blood Cells 0.0 0.0-0.19 % Differential Comment MANUAL DIFFERENTIAL White Cell Morphology Comment SMUDGE CELLS 1+ Platelet Morphology Comment DECREASED Red Blood Cell Morphology HYPOCHROM CELLS 1+ Sodium Level 139 136-145 mmol/L Potassium Level 3.5 3.5-5.1 mmol/L Chloride Level 98 L 101-111 mmol/L Carbon Dioxide Level 30 21-32 mmol/L Blood Urea Nitrogen 47 H 7-18 mg/dL Creatinine 5.0 H 0.5-1.3 mg/dL Glomerular Filtration Rate Calc 12 >90 mL/min Random Glucose 117 H 70-105 mg/dL Total Calcium 7.8 L 8.5-10.1 mg/dL Phosphorus Level 4.6 2.5-4.9 mg/dL Magnesium Level 2.00 1.80-2.40 mg/dL Total Bilirubin 0.8 0.2-1.0 mg/dL Aspartate Amino Transf (AST/SGOT) 11 10-37 U/L Alanine Aminotransferase (ALT/SGPT) 21 12-78 U/L Alkaline Phosphatase 71 50-136 U/L Total Protein 6.5 6.0-8.3 g/dL Albumin 3.9 3.5-5.0 g/dL Immature Granulocyte % (Auto) 0.3 0-1 % Neutrophils (%) (Auto) 66.6 40.0-77.0 % Lymphocytes (%) (Auto) 18.7 L 21.0-51.0 % Monocytes (%) (Auto) 11.7 3.0-13.0 % Eosinophils (%) (Auto) 2.4 0.0-8.0 % Basophils (%) (Auto) 0.3 0.0-5.0 % Neutrophils # (Auto) 2.5 1.8-7.7 K/uL Lymphocytes # (Auto) 0.7 L 1.0-4.8 K/uL Monocytes # (Auto) 0.4 0.1-1.0 K/uL Eosinophils # (Auto) 0.09 0.00-0.70 K/uL Basophils # (Auto) 0.01 0.00-0.20 K/uL Absolute Immature Granulocyte (auto 0.01 0-1 K/uL ASSESSMENT: End-stage renal disease, status post PermCath placement, new onset dialysis. Hyponatremia, resolved. Anemia. Diabetes mellitus. Hypertension. PLAN: Continue diuretics. Continue antidiabetics. Continue GI prophylaxis. Oxygen support as needed. Continue hypertensive medications Continue dialysis as per Nephrology recommendation This case was reviewed and discussed with my supervising physician Dr. Husain and the above assessment and plan was formulated and agreed upon. ATTESTATION BY PHYSICIAN I have seen and examined the patient. I reviewed the documentation, medical decision making, and treatment plan as noted by the mid-level provider above. I agree with the findings and plan of care. BRIGITTE HUSAIN MD, [facility] Jul 11, 2025 16:34
--- NOTE | 2025-07-11 17:25 | NUR ---
BLOOD TRANSFUSION FINISHED; NO AR NOTED
[2025-07-11] MEDS: EPOETIN ALFA-EPBX (NON-ESRD) 10,000 UNIT/ML VIAL SQ ONE (17:39)
--- NOTE | 2025-07-11 19:30 | NUR ---
PAGED DR. DONALD BENNETT CONTACTED AT THIS TIME VIA PAGER TO ASK ABOUT PATIENT RECENTLY STARTING ON RENAL DIALYSIS AND CONTINUES ON LASIX 80 MG IV BID IF WE SHOULD CONTINUE. PER DR. BENNETT: CONTINUE FOR TONIGHT AND HE WILL REVIEW IN THE MORNING. ORDERS NOTED AND CARRIED OUT.
[2025-07-11] MEDS: AMMONIUM LACTATE 226GM LOTION TP SCH (20:13)
[2025-07-12] VITALS (22 sets, daily range): BP systolic 138–186; BP diastolic 62–81; PULSE 60–79; RESP 14–20; TEMP 97.7–98.3; O2SAT 65–99
[2025-07-12 04:12] LABS: IMMATURE GRANULOCYTE ABSOLUTE 0.01 K/uL (0-1); NUCLEATED RED BLOOD CELLS 0.0 % (0.0-0.19); PLATELET COUNT (AUTO) 79 K/uL (130-400); RED BLOOD CELL COUNT(AUTO) 2.57 MIL/uL (4.50-6.20); RED CELL DISTRIBUTION WIDTH 14.5 % (11.0-15.5); WHITE BLOOD COUNT (AUTO) 3.3 K/uL (4.8-10.8)
[2025-07-12 04:22] LABS: ASPARTATE AMINOTRANSFERASE 12.0 U/L (10-37); CREATININE 6.0 mg/dL (0.5-1.3); GLOMERULAR FILTR. RATE CALC 9.0 mL/min (>90); GLUCOSE,RANDOM 117.0 mg/dL (70-105); SODIUM SERUM 135.0 mmol/L (136-145); TOTAL PROTEIN, SERUM 6.7 g/dL (6.0-8.3); UREA NITROGEN, BLOOD 62.0 mg/dL (7-18)
[2025-07-12 13:13] LABS: FREE KAPPA LIGHT CHAINS,S 79.7 mg/L (3.3-19.4)
[2025-07-12] MEDS: EPOETIN ALFA-EPBX (NON-ESRD) 10,000 UNIT/ML VIAL SQ SCH (17:39)
--- NOTE | 2025-07-12 18:13 | PN ---
A 70-year-old male with hypertension, diabetes mellitus, chronic tobacco use, CAD and CKD, who presented to the hospital with bilateral leg swelling. The patient also complains of shortness of breath. The patient was seen in the clinic by Nephrology sometime this week and was told to go to the Emergency Room for possible initiation of dialysis. BNP is elevated at 661. Sodium 126 and potassium of 5.0. BUN was 97 and creatinine 0.3. Bicarbonate is low at 16. Chloride also is low at 89. Denies fever or chills. No cough. No hemoptysis or pleuritic pain. Chest x-ray shows COPD changes. Patient with acute renal failure with the patient was started on hemodialysis. Status post blood transfusion. Hemoglobin level 8.3 g/dL. PHYSICAL EXAM GENERAL: ALERT, ORIENTED, APPEARS-NO ACUTE DISTRESS EYES: SCLERAE ANICTERIC, PUPILS EQUAL/REACTIVE, EXTRAOCULAR MUSCLES INTCT ENT/NECK: ORAL MUCOSA W/O LESIONS, OROPHARYNX IS CLEAR, NECK SUPPLE W/O MASSES RESPIRATORY: LUNGS CLEAR-AUSC/PERCUS CARDIOVASCULAR: REGULAR RATE GASTROINTESTINAL: ABDOMEN IS SOFT HEMATOLOGY/LYMPHATIC: No CERVICAL ADENOPATHY, No SUPRACLAVICULR ADENOPATHY, No AXILLARY ADENOPATHY, No INGUINAL ADENOPATHY MUSCULOSKELETAL: CYANOSIS-EXTREMETIES; No CYANOSIS-EXTREMETIES, No CLUBBING; E [place] SKIN/BREASTS: MASSES; No MASSES, No RASH, No HIVES NEUROLOGICAL: GROSSLY INTACT PSYCHOLOGICAL: MINI MENTAL ASSMT INTACT IMPRESSION Neutropenia, White blood count 3.7 K Anemia. Status post blood transfusion. Hemoglobin level 8.3 g/deciliter Thrombocytopenia. Platelet count 58K End-stage renal disease on hemodialysis Hyponatremia. Diabetes mellitus. Hypertension. Status post PermCath placement PLAN 1. Peripheral blood smear showed red blood cells to be normocytic normochromic. There was no fragment cell or schistocyte. There is no teardrop cell. There is no rouleaux phenomena. There is no pelger-Huet cell. White blood cell with no blasts. Platelet was normal in morphology and count. 2. There was hypersegmented neutrophils. This patient to Continue on folic acid 1 mg p.o. daily and vitamin B12 1000 mcg p.o. daily. 3. There is rouleaux phenomena. SPEP, UPEP and free light chain were ordered. If there is monoclonal protein we will do a bone marrow biopsy. 4. Continue dialysis as per nephrology 5. This patient pancytopenia could be due to uremia and it will improve with the patient dialyzed and optimize his condition. 6. No need for blood product transfusion at this time. Patient received iron and Procrit during hemodialysis. Vitals/Labs Vital Signs Date Time Temp Pulse Resp B/P (MAP) Pulse Ox O2 Delivery O2 Flow Rate FiO2 07/12/25 16:30 97.7 66 16 174/77 Room Air 07/12/25 16:00 97 21 07/12/25 08:00 0 Laboratory Tests 07/12/25 03:55 Medications Current Medications Sodium Bicarbonate 650 mg BID PO Last administered on 07/12/25at 08:44; Start 07/07/25 at 21:00; Stop 08/06/25 at 20:59 Sodium Chloride 1,000 mg TID PO Last administered on 07/12/25at 13:16; Start 07/07/25 at 21:00; Stop 08/06/25 at 20:59 Insulin Human Regular INSULIN SLIDING SCAL... ACHS SQ Last administered on 07/11/25at 20:12; Start 07/07/25 at 16:30; Stop 08/06/25 at 16:29 Dextrose 50 ml AD PRN IV; Start 07/07/25 at 15:30; Stop 08/06/25 at 15:29 Glucagon 1 mg AD PRN IM; Start 07/07/25 at 15:30; Stop 08/06/25 at 15:29 Heparin Sodium (Porcine) 5,000 unit Q12H SQ Last administered on 07/10/25at 14:10; Start 07/07/25 at 15:30; Stop 07/10/25 at 19:27; Status DC Acetaminophen 650 mg Q6H PRN PO; Start 07/07/25 at 15:30; Stop 08/06/25 at 15:29 Ondansetron HCl 4 mg Q6H PRN IVP; Start 07/07/25 at 15:30; Stop 08/06/25 at 15:29 Amlodipine Besylate 5 mg DAILY PO Last administered on 07/12/25at 08:44; Start 07/08/25 at 09:00; Stop 08/07/25 at 08:59 Atorvastatin Calcium 10 mg AM PO Last administered on 07/11/25at 10:08; Start 07/08/25 at 09:00; Stop 07/12/25 at 07:39; Status DC Ibuprofen 600 mg Q6H PRN PO; Start 07/07/25 at 19:00; Stop 07/12/25 at 07:39; Status DC Metoprolol Tartrate 50 mg BIDAC PO Last administered on 07/12/25 08:43; Start 07/08/25 at 07:30; Stop 08/07/25 at 07:29 Torsemide 20 mg DAILY PO Last administered on 07/08/25at 09:30; Start 07/08/25 at 09:00; Stop 07/08/25 at 14:16; Status DC Home Med (Cholecalciferol (Vitamin D3) 25 MCG) DAILY PO Last administered on 07/12/25 10:28; Start 07/08/25 at 09:00; Stop 08/07/25 at 08:59 Pantoprazole Sodium 40 mg DAILY PO Last administered on 07/12/25at 08:44; Start 07/08/25 at 09:00; Stop 08/07/25 at 08:59 Ferrous Sulfate 325 mg DAILY PO Last administered on 07/12/25at 08:44; Start 07/08/25 at 09:00; Stop 08/07/25 at 08:59 Vitamin B Complex/ Vit C/Folic Acid 1 cap DAILY PO; Start 07/08/25 at 09:00; Stop 07/07/25 at 23:18; Status DC Vitamin B Complex/ Vit C/Folic Acid 1 cap DAILY PO Last administered on 07/12/25at 08:44; Start 07/08/25 at 09:00; Stop 08/07/25 at 08:59 Furosemide 80 mg BID IV Last administered on 07/12/25at 08:45; Start 07/08/25 at 14:30; Stop 08/07/25 at 14:29 Epoetin Trevor-epbx 10,000 unit ONCE ONCE SQ Last administered on 07/08/25at 15:19; Start 07/08/25 at 14:30; Stop 07/08/25 at 14:31; Status DC Lidocaine HCl 50 ml STK-MED ONCE .ROUTE; Start 07/09/25 at 07:18; Stop 07/09/25 at 07:18; Status DC Heparin Sodium (Porcine) 1,000 unit STK-MED ONCE .ROUTE; Start 07/09/25 at 07:18; Stop 07/09/25 at 07:19; Status DC Heparin Sodium/ Sodium Chloride 500 ml @ As Directed STK-MED ONCE IV; Start 07/09/25 at 07:19; Stop 07/09/25 at 07:19; Status DC Fentanyl Citrate 100 mcg STK-MED ONCE .ROUTE; Start 07/09/25 at 07:38; Stop 07/09/25 at 07:38; Status DC Midazolam HCl 2 mg STK-MED ONCE .ROUTE; Start 07/09/25 at 07:38; Stop 07/09/25 at 07:38; Status DC Sodium Chloride 1,000 ml @ 0 mls/hr ONCE IV Last administered on 07/09/25at 11:48; Start 07/09/25 at 11:00; Stop 07/12/25 at 07:39; Status DC Hydralazine HCl 10 mg Q8H5 PRN IV Last administered on 07/09/25at 23:41; Start 07/09/25 at 16:00; Stop 08/08/25 at 15:59 Folic Acid 1 mg DAILY PO Last administered on 07/12/25at 08:44; Start 07/10/25 at 09:00; Stop 08/09/25 at 08:59 Vitamin B Complex 1,000 mcg DAILY PO Last administered on 07/12/25at 08:44; Start 07/10/25 at 09:00; Stop 08/09/25 at 08:59 Sodium Chloride 1,000 ml @ 0 mls/hr ONCE IV; Start 07/10/25 at 18:00; Stop 08/09/25 at 17:59 Heparin Sodium (Porcine) 5,000 unit Q12H SQ Last administered on 07/12/25at 09:34; Start 07/11/25 at 09:00; Stop 08/10/25 at 08:59 Dexamethasone Sodium Phosphate 10 mg ONCE ONCE IV; Start 07/11/25 at 09:30; Stop 07/11/25 at 09:18; Status DC Dexamethasone Sodium Phosphate 10 mg ONCE ONCE IV Last administered on 07/11/25at 14:53; Start 07/11/25 at 09:30; Stop 07/11/25 at 09:31; Status DC Epoetin Trevor-epbx 10,000 unit ONCE ONCE SQ Last administered on 07/11/25at 17:39; Start 07/11/25 at 14:00; Stop 07/11/25 at 14:01; Status DC Epoetin Trevor-epbx 10,000 unit MWFPHD SQ Last administered on 07/12/25at 17:39; Start 07/12/25 at 16:00; Stop 08/11/25 at 15:59 Lactic Acid 1 APPLICATION BID TP Last administered on 07/11/25at 20:13; Start 07/11/25 at 21:00; Stop 08/10/25 at 20:59 Atorvastatin Calcium 10 mg HS PO; Start 07/12/25 at 21:00; Stop 08/07/25 at 08:59 ALONSO DOMINGUEZ MD Jul 12, 2025 18:12
--- NOTE | 2025-07-12 18:21 | NUR ---
CM NOTE/[facility] [place] CM spoke to Norma with [facility] [place]. States patient has approval for [place] at [facility] [place] MWF @ 430 pm. CM advised Norma that anticipated dc date was for today. Received appointment for 07/14/25 @ 4 pm. CM updated patient/family with above. Patient anxious to discharge home today. CM explained that AV access surgery is still pending but can be done as an outpatient. Family prefers patient stay for procedure. CM updated Dr. Briones and [facility] [place] TEST EXAMINER with approved chair. Patient pending Dr. Mejía to schedule surgery. CM provided printed copy of o/p appointment and clinic contact information to patient/family.
--- NOTE | 2025-07-12 18:43 | PN ---
INFECTIOUS DISEASE PROGRESS NOTE Date of Service: Jul 12, 2025 SUBJECTIVE: This is a 70-year-old male patient who was seen at bedside in room 420. Dialysis session was in process during visit today. Patient stated he is feeling a lot better. Per report. Patient was evaluated by Cardiovascular beverly geon and pending recommendations. Per Case management report patient has been set up for dialysis with US for MWF. PHYSICAL EXAM EYES: Anicteric. Pupils equal and reactive. HENT: No oral thrush seen, moist Oral mucosa. NECK: Supple, no JVD or thyromegaly. LUNGS: Good air entry. No rales, no rhonchi. CARDIOVASCULAR: S1, S2 regular. No murmur heard. ABDOMEN: Soft, non tender, bowel sounds present. CENTRAL NERVOUS SYSTEM: Awake, alert, oriented x 3. SKIN: No rashes, no swelling. LYMPHATICS: No peripheral lymphadenopathy MUSCULOSKELETAL: No joint swelling, erythema or tenderness. EXTREMITIES: No cyanosis or clubbing. Bilateral lower extremity edema, improved. BACK: No deformity, no pressure ulcer. GENITOURINARY: No dysuria or hematuria. Vital Sign (Last 12 Hours) 07/12/25 07/12/25 07/12/25 07/12/25 07:57 08:00 12:01 13:00 Temp 98.1 98.2 98.1 Pulse 65 63 65 Resp 19 18 14 B/P (MAP) 186/81 170/75 157/72 Pulse Ox 100 65 99 O2 Delivery Room Air Room Air* Room Air Room Air O2 Flow Rate 0 FiO2 21 21 21 07/12/25 07/12/25 07/12/25 07/12/25 13:20 13:35 13:50 14:05 Temp 98.1 Pulse 67 64 67 64 Resp 16 16 16 16 B/P (MAP) 165/81 172/76 169/77 156/65 O2 Delivery Room Air Room Air Room Air Room Air 07/12/25 07/12/25 07/12/25 07/12/25 14:20 14:35 14:50 15:05 Pulse 65 66 68 65 Resp 16 16 16 16 B/P (MAP) 150/62 147/63 154/73 142/66 O2 Delivery Room Air Room Air Room Air Room Air 07/12/25 07/12/25 07/12/25 07/12/25 15:20 15:35 15:50 16:00 Temp 98.1 Pulse 65 62 60 68 Resp 16 16 16 18 B/P (MAP) 155/72 152/70 157/75 155/72 Pulse Ox 97 O2 Delivery Room Air Room Air Room Air Room Air FiO2 21 07/12/25 07/12/25 07/12/25 16:05 16:20 16:30 Temp 97.7 97.7 Pulse 65 66 Resp 16 16 16 B/P (MAP) 168/75 165/81 174/77 O2 Delivery Room Air Room Air Room Air Intake & Output (last 24hrs) 07/11/25 07/11/25 07/12/25 15:00 23:00 07:00 Intake Total 538.0 ml 1197.0 ml 250 ml Output Total 900 ml 500 ml 1300 ml Balance -362.0 ml 697.0 ml -1050 ml LABS: Laboratory: Test 07/12/25 14:52 07/12/25 03:55 07/11/25 06:00 Range/Units Whole Blood Glucose 166 H 70-110 MG/DL White Blood Count 3.3 L 4.8-10.8 K/uL Red Blood Count 2.57 #L 4.50-6.20 MIL/uL Hemoglobin 8.0 L 14.0-18.0 g/dL Hematocrit 24.0 #L 42-54 % Mean Corpuscular Volume 93.4 79-99 fL Mean Corpuscular Hemoglobin 31.1 27.0-33.0 pg Mean Corpuscular Hemoglobin Concent 33.3 32.0-36.0 g/dL Red Cell Distribution Width 14.5 11.0-15.5 % Platelet Count 79 #L 130-400 K/uL Mean Platelet Volume 11.0 H 7.5-10.5 fL Immature Granulocyte % (Auto) 0.3 0-1 % Neutrophils (%) (Auto) 73.9 40.0-77.0 % Lymphocytes (%) (Auto) 15.0 L 21.0-51.0 % Monocytes (%) (Auto) 10.8 3.0-13.0 % Eosinophils (%) (Auto) 0.0 0.0-8.0 % Basophils (%) (Auto) 0.0 0.0-5.0 % Neutrophils # (Auto) 2.5 1.8-7.7 K/uL Lymphocytes # (Auto) 0.5 L 1.0-4.8 K/uL Monocytes # (Auto) 0.4 0.1-1.0 K/uL Eosinophils # (Auto) 0.00 0.00-0.70 K/uL Basophils # (Auto) 0.00 0.00-0.20 K/uL Absolute Immature Granulocyte (auto 0.01 0-1 K/uL Nucleated Red Blood Cells 0.0 0.0-0.19 % Sodium Level 135 L 136-145 mmol/L Potassium Level 3.6 3.5-5.1 mmol/L Chloride Level 94 L 101-111 mmol/L Carbon Dioxide Level 29 21-32 mmol/L Blood Urea Nitrogen 62 H 7-18 mg/dL Creatinine 6.0 H 0.5-1.3 mg/dL Glomerular Filtration Rate Calc 9 >90 mL/min Random Glucose 117 H 70-105 mg/dL Total Calcium 7.7 L 8.5-10.1 mg/dL Phosphorus Level 5.3 H 2.5-4.9 mg/dL Magnesium Level 1.90 1.80-2.40 mg/dL Total Bilirubin 0.7 0.2-1.0 mg/dL Aspartate Amino Transf (AST/SGOT) 12 10-37 U/L Alanine Aminotransferase (ALT/SGPT) 17 12-78 U/L Alkaline Phosphatase 75 50-136 U/L Total Protein 6.7 6.0-8.3 g/dL Albumin 3.9 3.5-5.0 g/dL Segmented Neutrophils % 71 H 40-70 % Lymphocytes % (Manual) 19 L 22-44 % Monocytes % (Manual) 10 H 2-9 % Differential Comment MANUAL DIFFERENTIAL White Cell Morphology Comment SMUDGE CELLS 1+ Platelet Morphology Comment DECREASED Red Blood Cell Morphology HYPOCHROM CELLS 1+ ASSESSMENT: End-stage renal disease, status post PermCath placement, new onset dialysis. Hyponatremia, resolved. Anemia, requiring blood transfusion. Diabetes mellitus. Hypertension. PLAN: Continue diuretics. Continue antidiabetics. Continue GI prophylaxis. Oxygen support as needed. Continue hypertensive medications Continue dialysis as per Nephrology recommendation Outpatient dialysis has been arranged with [facility] renal. This case was reviewed and discussed with my supervising physician Dr. Husain and the above assessment and plan was formulated and agreed upon. ATTESTATION BY PHYSICIAN I have seen and examined the patient. I reviewed the documentation, medical decision making, and treatment plan as noted by the mid-level provider above. I agree with the findings and plan of care. BRIGITTE HUSIAN MD, [facility] Jul 12, 2025 18:43
--- NOTE | 2025-07-12 22:13 | NUR ---
NURSE NOTE PATIENT VOICED HE FELT HIS BLOOD SUGAR "DROP". PATIENT HAD HOME GLUCOMETER AT BEDSIDE WHICH READ 69MG/DL WHEN PATIENT CHECKED HIMSELF ON IT. JEANNA WITT CONFIRMED WITH HOSPITAL GLUCOMETER RBS 69MG/DL. I ADVISED JEANNA WITT TO PROVIDE THE PATIENT WITH SOME PUDDING TO BRING HIS BLOOD GLUCOSE UP. PATIENT THEN PROCEEDED TO CALL HIS DAUGHTER VOICING TO HER THAT I SHOULD NOT HAVE GIVEN HIM ANY INSULIN. HE STATED "THE DOCTOR HAD ALREADY SAID TO NOT GIVE ME ANY INSULIN ANYMORE". HE VOICED MULTIPLE TIMES THAT I DID NOT KNOW WHAT I WAS DOING AND THAT I WOULD POTENTIALLY HARM A PATIENT IN THE PROCESS OR WORSE. I ADVISED HIM THAT I A NURSE CAN ONLY FOLLOW THE ORDERS GIVEN TO ME BY THE PHYSICIANS ON HIS CASE. HE WOULD ONLY RESPOND WITH "GET OUT OF MY ROOM". THE DAUGHTER WHO HE CALLED (ADELAIDA) WANTED TO SPEAK TO ME OVER THE PHONE. WHEN I ADVISED HER OF WHAT WAS HAPPENING SHE RESPONDED WITH "HE'S BEEN ANXIOUS ALL DAY. HE HAS BEEN CALLING US ALL DAY COMPLAINING OF EVERYTHING YOU ALL DO". I ASKED PATIENT IF HE WANTED ME TO GET HIM ANYTHING FOR ANXIETY TO WHICH HE RESPONDED "LEAVE ME ALONE". I ADVISED CLERICAL AIDE TEACHER SERGIO OF THE SITUATION. I WAS ADVISED TO TRANSFER THE CARE OVER TO MICHAEL MORALES LVN. REPORT GIVEN TO MICHAEL ALTMAN.
--- NOTE | 2025-07-12 22:46 | NUR ---
NURSE NOTE/ BLOOD SUGAR FOLLOW UP PATIENT REQUESTED FOR BLOOD SUGAR TO BE RECHECKED AT THIS TIME. JEANNA WITT REPORTED RBS 90 MG/DL. MICHAEL MORALES LVN ADVISED, VOICED UNDERSTANDING.
[2025-07-13] VITALS: BP 150/73; PULSE 66; RESP 22; TEMP 98.3
--- NOTE | 2025-07-13 01:55 | PN ---
SUBJECTIVE: The patient is a 70-year-old male with hyperlipidemia, diabetes mellitus, hypertension, coronary artery disease, status post coronary artery bypass grafting, and tobacco abuse as he smokes cigars. The patient has new-onset end-stage renal disease requiring hemodialysis. He is currently receiving his third hemodialysis run at the bedside. Cardiovascular Surgery was consulted for possible hemodialysis access. OBJECTIVE: GENERAL: On exam, the patient is a pleasant elderly male in no apparent distress. He is lying flat in bed, receiving hemodialysis via right-sided hemodialysis catheter. The patient is left-handed. HEENT: Head is normocephalic, atraumatic. Extraocular muscles intact. CHEST: His chest is stable. He has a median sternotomy incisional scar. HEART: His heart is S1 and S2 and regular. LUNGS: His lungs are unlabored at rest off of oxygen. ABDOMEN: His abdomen reveals he is flat with positive bowel sounds. EXTREMITIES: Examination of his right upper extremity reveals a very good compressible cephalic vein at his wrist and a good radial artery pulse. ASSESSMENT AND PLAN: End-stage renal disease requiring long-term hemodialysis access. We will plan a right upper extremity arteriovenous fistula or arteriovenous graft. I am hoping he will be a good candidate for [place]. We will do this on a non-hemodialysis day. TID: [id number] RECEIPT: [id number]
[2025-07-13 04:00] VITALS: BP 151/79; PULSE 72; RESP 20; TEMP 98.2
[2025-07-13 04:17] LABS: NUCLEATED RED BLOOD CELLS 0.0 % (0.0-0.19); PLATELET COUNT (AUTO) 62.0 K/uL (130-400); RED BLOOD CELL COUNT(AUTO) 2.67 MIL/uL (4.50-6.20); RED CELL DISTRIBUTION WIDTH 14.5 % (11.0-15.5); WHITE BLOOD COUNT (AUTO) 4.1 K/uL (4.8-10.8)
--- NOTE | 2025-07-13 04:24 | PN ---
NEPHROLOGY NOTE SUBJECTIVE: This patient has been evaluated and seen for dialysis. Seen several times. The patient is very anemic. Epogen, iron as needed ordered. The patient has no fevers, chills, or rigors. No cough, expectoration or hemoptysis. Outpatient dialysis being arranged. Surgical evaluation has been ordered. Intake, output, weight will be monitored. AV access has been considered. The patient is getting the dialysis today. Continue with other supportive measures. PROBLEMS: * Renal failure. * Anemia. * Electrolyte problem. PLAN: Continue dialysis. Follow up on renal function. AV access when suitable. Overall status to be monitored. Nonsteroidal drugs to be avoided. Doses of medicine to be adjusted and continue followup. We will be following up on renal function and overall status. The patient is being considered for AV access soon. I have discussed with the surgical team personally. TID: [id number] RECEIPT: [id number]
[2025-07-13 04:41] LABS: ASPARTATE AMINOTRANSFERASE 18.0 U/L (10-37); CREATININE 4.9 mg/dL (0.5-1.3); GLOMERULAR FILTR. RATE CALC 12.0 mL/min (>90); GLUCOSE,RANDOM 119.0 mg/dL (70-105); PHOSPHORUS 4.4 mg/dL (2.5-4.9); SODIUM SERUM 137.0 mmol/L (136-145); TOTAL PROTEIN, SERUM 6.8 g/dL (6.0-8.3); UREA NITROGEN, BLOOD 44.0 mg/dL (7-18)
--- NOTE | 2025-07-13 04:49 | PN ---
NEPHROLOGY NOTE SUBJECTIVE: The patient has been evaluated and seen several times for dialysis. Condition remains critically guarded. Seen several times. We will be monitoring the overall status closely. I have discussed with the team physicians intake, output, weight will be monitored. The patient is very anxious. I have discussed with the family member. The patient would benefit from AV access placement soon. If cannot be done inpatient, outpatient to ____. The patient has been explained risk of catheter-related bacteremia. The patient has anemia, underlying neutropenia followed by thrombocytopenia, history of alcohol abuse, history of hyponatremia. Intake, output, weight will be monitored. Nonsteroidal drugs to be avoided. Dose of medicine to be adjusted. Epogen as needed. Seen several times. Thank you for this patient. TID: [id number] RECEIPT: [id number]
--- NOTE | 2025-07-13 06:14 | HMCIMG ---
EXAMINATION: SPECTRAL DOPPLER ULTRASOUND EXAMINATION OF THE RIGHT UPPER EXTREMITY VEINS. CLINICAL HISTORY: Arterio-venous creation. COMPARISON: None provided. TECHNIQUE: Real-time ultrasound scan of the veins of the right upper extremity. FINDINGS: Depth (cm) Lumen (cm) Right Cephalic vein: [place]: Collapsed Upper arm: 0.3 0.3 Mid arm: 0.1 0.3 Lower arm: 0.1 0.3 Antecubital fossa: 0.1 0.3 Upper forearm: 0.2 0.2 Mid forearm: 0.1 0.2 Wrist: 0.1 0.1 Basilic vein: Upper arm: 0.3 0.4 Lower arm: 0.2 0.3 Antecubital fossa: 0.3 0.2 IMPRESSION: No superficial vein thrombosis in the right upper extremity. Venous mapping as above. /[place]
[2025-07-13 08:00] VITALS: BP 159/86; PULSE 78; RESP 17; TEMP 98; O2SAT 99
--- NOTE | 2025-07-13 11:17 | NUR ---
DISCHARGE SPOKE WITH DR IBARRA, STATED HE SPOKE W/ PATIENT YESTERDAY THAT AV FISTULA GRAFT CAN BE DONE OUTPATIENT. PT OKAY TO DISCHARGE.
--- NOTE | 2025-07-13 11:33 | NUR ---
FOLLOW UP APPOINTMENT CONTACTED DR. IBARRA'S OFFICE, SPOKE WITH JOHN TO SCHEDULE FOLLOW UP APPOINTMENT (RE: AV FISTULA PLACEMENT). PER Breanna LOPEZ, WILL CONTACT PATIENT WITH FOLLOW UP APPOINTMENT ONCE INSURANCE IS CLEARED. REQUESTED FOR FACE SHEET TO BE FAXED OVER AT . FAXED. NOTIFIED PATIENT AND PROVIDED WITH CONTACT INFORMATION. VOICED UNDERSTANDING.
[2025-07-13 11:39] VITALS: BP 162/75; PULSE 66; RESP 18; TEMP 98
[2025-07-13 12:12] LABS: ALBUMIN (IFE & ELECTROPHOR) 3.6 g/dL (2.9-4.4); ALBUMIN/GLOBULIN RATIO (IFE) 1.6 (0.7-1.7); ALPHA-1 (IFE & PEP) 0.2 g/dL (0.0-0.4); ALPHA-2 (IFE & PEP) 0.5 g/dL (0.4-1.0); BETA (IFE & ELP) 0.7 g/dL (0.7-1.3); GAMMA GLOBULINS (IFE & ELP) 0.8 g/dL (0.4-1.8); GLOBULIN TOTAL (IFE) 2.3 g/dL (2.2-3.9); IGA (IFE) 120 mg/dL (61-437); IGG (IMMUNOFIXATION) 856 mg/dL (603-1613); IGM (IMMUNOFIXATION) 44 mg/dL (15-143); M-SPIKE (IEP) Not Observed g/dL (Not Observed)
--- NOTE | 2025-07-13 12:43 | PN ---
A 70-year-old male with hypertension, diabetes mellitus, chronic tobacco use, CAD and CKD, who presented to the hospital with bilateral leg swelling. The patient also complains of shortness of breath. The patient was seen in the clinic by Nephrology sometime this week and was told to go to the Emergency Room for possible initiation of dialysis. BNP is elevated at 661. Sodium 126 and potassium of 5.0. BUN was 97 and creatinine 0.3. Bicarbonate is low at 16. Chloride also is low at 89. Denies fever or chills. No cough. No hemoptysis or pleuritic pain. Chest x-ray shows COPD changes. Patient with acute renal failure with the patient was started on hemodialysis. Status post blood transfusion. Hemoglobin level 8.5g/dL. AV Fistula to be done outpatient with CV surgery. PHYSICAL EXAM GENERAL: ALERT, ORIENTED, APPEARS-NO ACUTE DISTRESS EYES: SCLERAE ANICTERIC, PUPILS EQUAL/REACTIVE, EXTRAOCULAR MUSCLES INTCT ENT/NECK: ORAL MUCOSA W/O LESIONS, OROPHARYNX IS CLEAR, NECK SUPPLE W/O MASSES RESPIRATORY: LUNGS CLEAR-AUSC/PERCUS CARDIOVASCULAR: REGULAR RATE GASTROINTESTINAL: ABDOMEN IS SOFT HEMATOLOGY/LYMPHATIC: No CERVICAL ADENOPATHY, No SUPRACLAVICULR ADENOPATHY, No AXILLARY ADENOPATHY, No INGUINAL ADENOPATHY MUSCULOSKELETAL: CYANOSIS-EXTREMETIES; No CYANOSIS-EXTREMETIES, No CLUBBING; E [place] SKIN/BREASTS: MASSES; No MASSES, No RASH, No HIVES NEUROLOGICAL: GROSSLY INTACT PSYCHOLOGICAL: MINI MENTAL ASSMT INTACT IMPRESSION Neutropenia, White blood count 3.7 K Anemia. Status post blood transfusion. Hemoglobin level 8.3 g/deciliter Thrombocytopenia. Platelet count 58K End-stage renal disease on hemodialysis Hyponatremia. Diabetes mellitus. Hypertension. Status post PermCath placement PLAN 1. Peripheral blood smear showed red blood cells to be normocytic normochromic. There was no fragment cell or schistocyte. There is no teardrop cell. There is no rouleaux phenomena. There is no pelger-Huet cell. White blood cell with no blasts. Platelet was normal in morphology and count. 2. There was hypersegmented neutrophils. This patient to Continue on folic acid 1 mg p.o. daily and vitamin B12 1000 mcg p.o. daily. 3. There is rouleaux phenomena. SPEP, UPEP and free light chain were ordered. If there is monoclonal protein we will do a bone marrow biopsy. 4. Continue dialysis as per nephrology 5. This patient pancytopenia could be due to uremia and it will improve with the patient dialyzed and optimize his condition. 6. No need for blood product transfusion at this time. Patient received iron and Procrit during hemodialysis. Vitals/Labs Vital Signs Date Time Temp Pulse Resp B/P (MAP) Pulse Ox O2 Delivery O2 Flow Rate FiO2 07/13/25 11:39 98.1 66 18 162/75 99 Room Air 07/13/25 08:00 0 21 Laboratory Tests 07/13/25 04:01 Medications Current Medications Sodium Bicarbonate 650 mg BID PO Last administered on 07/12/25 20:40; Start 07/07/25 at 21:00; Stop 08/06/25 at 20:59 Sodium Chloride 1,000 mg TID PO Last administered on 07/12/25 20:40; Start 07/07/25 at 21:00; Stop 08/06/25 at 20:59 Insulin Human Regular INSULIN SLIDING SCAL... ACHS SQ Last administered on 07/12/25at 20:48; Start 07/07/25 at 16:30; Stop 08/06/25 at 16:29 Dextrose 50 ml AD PRN IV; Start 07/07/25 at 15:30; Stop 08/06/25 at 15:29 Glucagon 1 mg AD PRN IM; Start 07/07/25 at 15:30; Stop 08/06/25 at 15:29 Heparin Sodium (Porcine) 5,000 unit Q12H SQ Last administered on 07/10/25at 14:10; Start 07/07/25 at 15:30; Stop 07/10/25 at 19:27; Status DC Acetaminophen 650 mg Q6H PRN PO; Start 07/07/25 at 15:30; Stop 08/06/25 at 15:29 Ondansetron HCl 4 mg Q6H PRN IVP; Start 07/07/25 at 15:30; Stop 08/06/25 at 15:29 Amlodipine Besylate 5 mg DAILY PO Last administered on 07/13/25 09:08; Start 07/08/25 at 09:00; Stop 08/07/25 at 08:59 Atorvastatin Calcium 10 mg AM PO Last administered on 07/11/25at 10:08; Start 07/08/25 at 09:00; Stop 07/12/25 at 07:39; Status DC Ibuprofen 600 mg Q6H PRN PO; Start 07/07/25 at 19:00; Stop 07/12/25 at 07:39; Status DC Metoprolol Tartrate 50 mg BIDAC PO Last administered on 07/13/25at 09:08; Start 07/08/25 at 07:30; Stop 08/07/25 at 07:29 Torsemide 20 mg DAILY PO Last administered on 07/08/25at 09:30; Start 07/08/25 at 09:00; Stop 07/08/25 at 14:16; Status DC Home Med (Cholecalciferol (Vitamin D3) 25 MCG) DAILY PO Last administered on 07/12/25at 10:28; Start 07/08/25 at 09:00; Stop 08/07/25 at 08:59 Pantoprazole Sodium 40 mg DAILY PO Last administered on 07/12/25at 08:44; Start 07/08/25 at 09:00; Stop 08/07/25 at 08:59 Ferrous Sulfate 325 mg DAILY PO Last administered on 07/12/25at 08:44; Start 07/08/25 at 09:00; Stop 08/07/25 at 08:59 Vitamin B Complex/ Vit C/Folic Acid 1 cap DAILY PO; Start 07/08/25 at 09:00; Stop 07/07/25 at 23:18; Status DC Vitamin B Complex/ Vit C/Folic Acid 1 cap DAILY PO Last administered on 07/12/25at 08:44; Start 07/08/25 at 09:00; Stop 08/07/25 at 08:59 Furosemide 80 mg BID IV Last administered on 07/13/25at 09:08; Start 07/08/25 at 14:30; Stop 07/13/25 at 11:52; Status DC Epoetin Trevor-epbx 10,000 unit ONCE ONCE SQ Last administered on 07/08/25at 15:19; Start 07/08/25 at 14:30; Stop 07/08/25 at 14:31; Status DC Lidocaine HCl 50 ml STK-MED ONCE .ROUTE; Start 07/09/25 at 07:18; Stop 07/09/25 at 07:18; Status DC Heparin Sodium (Porcine) 1,000 unit STK-MED ONCE .ROUTE; Start 07/09/25 at 07:18; Stop 07/09/25 at 07:19; Status DC Heparin Sodium/ Sodium Chloride 500 ml @ As Directed STK-MED ONCE IV; Start 07/09/25 at 07:19; Stop 07/09/25 at 07:19; Status DC Fentanyl Citrate 100 mcg STK-MED ONCE .ROUTE; Start 07/09/25 at 07:38; Stop 07/09/25 at 07:38; Status DC Midazolam HCl 2 mg STK-MED ONCE .ROUTE; Start 07/09/25 at 07:38; Stop 07/09/25 at 07:38; Status DC Sodium Chloride 1,000 ml @ 0 mls/hr ONCE IV Last administered on 07/09/25at 11:48; Start 07/09/25 at 11:00; Stop 07/12/25 at 07:39; Status DC Hydralazine HCl 10 mg Q8H5 PRN IV Last administered on 07/09/25at 23:41; Start 07/09/25 at 16:00; Stop 08/08/25 at 15:59 Folic Acid 1 mg DAILY PO Last administered on 07/12/25at 08:44; Start 07/10/25 at 09:00; Stop 08/09/25 at 08:59 Vitamin B Complex 1,000 mcg DAILY PO Last administered on 07/12/25at 08:44; Start 07/10/25 at 09:00; Stop 08/09/25 at 08:59 Sodium Chloride 1,000 ml @ 0 mls/hr ONCE IV; Start 07/10/25 at 18:00; Stop 08/09/25 at 17:59 Heparin Sodium (Porcine) 5,000 unit Q12H SQ Last administered on 07/12/25at 20:47; Start 07/11/25 at 09:00; Stop 08/10/25 at 08:59 Dexamethasone Sodium Phosphate 10 mg ONCE ONCE IV; Start 07/11/25 at 09:30; Stop 07/11/25 at 09:18; Status DC Dexamethasone Sodium Phosphate 10 mg ONCE ONCE IV Last administered on 07/11/25at 14:53; Start 07/11/25 at 09:30; Stop 07/11/25 at 09:31; Status DC Epoetin Trevor-epbx 10,000 unit ONCE ONCE SQ Last administered on 07/11/25at 17:39; Start 07/11/25 at 14:00; Stop 07/11/25 at 14:01; Status DC Epoetin Trevor-epbx 10,000 unit MWFPHD SQ Last administered on 07/12/25at 17:39; Start 07/12/25 at 16:00; Stop 08/11/25 at 15:59 Lactic Acid 1 APPLICATION BID TP Last administered on 07/13/25at 09:09; Start 07/11/25 at 21:00; Stop 08/10/25 at 20:59 Atorvastatin Calcium 10 mg HS PO Last administered on 07/12/25at 20:40; Start 07/12/25 at 21:00; Stop 08/07/25 at 08:59 JORY LEGGETT Jul 13, 2025 12:43
--- NOTE | 2025-07-13 13:45 | PN ---
NEPHROLOGY PROGRESS NOTE Date/Time Patient Seen: Jul 13, 2025 SUBJECTIVE: This is a 70-year-old male with hypertension, diabetes mellitus, chronic tobacco use, CAD and CKD. He presented to the hospital with bilateral leg swelling. He follows up [facility] for anemia. He was noted to have elevated BUN/creatinine Patient follows up in the renal clinic and initially refused dialysis We are consulted for renal failure. Renal function continue to worsen He has been initiated on hemodialysis Tolerated dialysis without difficulty via PermCath yesterday. Patient is very anxious to be discharged AV access to be done as outpatient, family and patient instructed to follow up with CT surgeon and PCP He continues on Epogen He was seen in the medical floor, in no acute distress Multiple family members at the bedside Prognosis remains guarded REVIEW OF SYSTEMS: GENERAL: Positive for itchiness NEUROLOGIC: Negative for any blurry vision, blind spots, double vision, facial asymmetry, dysphagia, dysarthria, hemiparesis, hemisensory deficits, vertigo, ataxia. HEENT: Negative for any head trauma, neck trauma, neck stiffness, photophobia, phonophobia, sinusitis, rhinitis. CARDIAC: Negative for any chest pain, dyspnea on exertion, paroxysmal nocturnal dyspnea, peripheral edema. PULMONARY: Negative for any shortness of breath, wheezing, COPD, or TB exposure. GASTROINTESTINAL: Negative for any abdominal pain, nausea, vomiting, bright red blood per rectum, melena. GENITOURINARY: Negative for any dysuria, hematuria, incontinence. INTEGUMENTARY: Negative for any rashes, cuts, insect bites. RHEUMATOLOGIC: Negative for any joint pains, photosensitive rashes, history of vasculitis or kidney problems. HEMATOLOGIC: Negative for any abnormal bruising, frequent infections or bleeding. Vital Signs (last 8hr) Date Time Temp Pulse Resp B/P (MAP) Pulse Ox O2 Delivery O2 Flow Rate FiO2 07/13/25 11:39 98.1 66 18 162/75 99 Room Air 07/13/25 08:00 99 Room Air* 0 21 07/13/25 08:00 98.1 78 17 159/86 100 Room Air PHYSICAL EXAM: GENERAL: Alert and oriented x 3. No acute distress. Well-nourished. EYES: EOMI. Anicteric. HENT: Moist mucous membranes. No scleral icterus. No cervical lymphadenopathy. LUNGS: Clear to auscultation bilaterally. No accessory muscle use. CARDIOVASCULAR: Regular rate and rhythm. No murmur. No JVD. ABDOMEN: Soft, non-tender and non-distended. No palpable masses. EXTREMITIES: No edema. Non-tender. SKIN: No rashes or lesions. Warm. NEUROLOGIC: No focal neurological deficits. CN II-XII grossly intact, but not individually tested. PSYCHIATRIC: Cooperative. Appropriate mood and affect. Current Medications Medications (Trade) Dose Ordered Sig/Lionel Route Start Time Stop Time Status Last Admin Dose Admin Amlodipine Besylate (NorvASC 5MG TAB) 5 mg DAILY PO 07/08/25 09:00 08/07/25 08:59 07/13/25 09:08 5 MG Atorvastatin Calcium (LIPItor 10MG) 10 mg AM PO 07/08/25 09:00 07/12/25 07:39 DC 07/11/25 10:08 10 MG Atorvastatin Calcium (LIPItor 10MG) 10 mg HS PO 07/12/25 21:00 08/07/25 08:59 07/12/25 20:40 10 MG Epoetin Trevor-epbx (Retacrit) 10,000 unit MWFPHD SQ 07/12/25 16:00 08/11/25 15:59 07/12/25 17:39 10,000 UNIT Ferrous Sulfate (Ferrous Sulfate) 325 mg DAILY PO 07/08/25 09:00 08/07/25 08:59 07/12/25 08:44 325 MG Folic Acid (FOLic ACID 1 MG TABLET) 1 mg DAILY PO 07/10/25 09:00 08/09/25 08:59 07/12/25 08:44 1 MG Furosemide (LASix 40MG VIAL) 80 mg BID IV 07/08/25 14:30 07/13/25 11:52 DC 07/13/25 09:08 80 MG Heparin Sodium (Porcine) (HEParin 5,000 UNIT VIAL) 5,000 unit Q12H SQ 07/07/25 15:30 07/10/25 19:27 DC 07/10/25 14:10 5,000 UNIT Heparin Sodium (Porcine) (HEParin 5,000 UNIT VIAL) 5,000 unit Q12H SQ 07/11/25 09:00 08/10/25 08:59 07/12/25 20:47 5,000 UNIT Home Med (Home Medication) (Cholecalciferol (Vitamin D3) 25 MCG) DAILY PO 07/08/25 09:00 08/07/25 08:59 07/12/25 10:28 1 EACH Insulin Human Regular (humuLIN R 100 UNIT/ML 3ML) INSULIN SLIDING SCAL... ACHS SQ 07/07/25 16:30 08/06/25 16:29 07/12/25 20:48 4 UNIT Lactic Acid (Lachydrin 226gm Lotion) 1 APPLICATION BID TP 07/11/25 21:00 08/10/25 20:59 07/13/25 09:09 1 GM Metoprolol Tartrate (loprESSOR) 50 mg BIDAC PO 07/08/25 07:30 08/07/25 07:29 07/13/25 09:08 50 MG Pantoprazole Sodium (PROTonix 40MG TAB) 40 mg DAILY PO 07/08/25 09:00 08/07/25 08:59 07/12/25 08:44 40 MG Sodium Bicarbonate (Sodium Bicarbonate) 650 mg BID PO 07/07/25 21:00 08/06/25 20:59 07/12/25 20:40 650 MG Sodium Chloride 1,000 ml @ 0 mls/hr ONCE IV 07/09/25 11:00 07/12/25 07:39 DC 07/09/25 11:48 100 MLS/HR Sodium Chloride 1,000 ml @ 0 mls/hr ONCE IV 07/10/25 18:00 08/09/25 17:59 Sodium Chloride (Sodium Chloride) 1,000 mg TID PO 07/07/25 21:00 08/06/25 20:59 07/12/25 20:40 1,000 MG Torsemide (Demadex) 20 mg DAILY PO 07/08/25 09:00 07/08/25 14:16 DC 07/08/25 09:30 20 MG Vitamin B Complex (Vitamin B-12) 1,000 mcg DAILY PO 07/10/25 09:00 08/09/25 08:59 07/12/25 08:44 1,000 MCG Vitamin B Complex/ Vit C/Folic Acid (Nephrovite Tablet) 1 cap DAILY PO 07/08/25 09:00 08/07/25 08:59 07/12/25 08:44 1 CAP Vitamin B Complex/ Vit C/Folic Acid (Nephrovite Tablet) 1 cap DAILY PO 07/08/25 09:00 07/07/25 23:18 DC LABORATORY: [ ] Hematology Labs: Test 07/13/25 04:01 07/12/25 03:55 Range/Units White Blood Count 4.1 L 4.8-10.8 K/uL Red Blood Count 2.67 L 4.50-6.20 MIL/uL Hemoglobin 8.5 L 14.0-18.0 g/dL Hematocrit 25.3 L 42-54 % Mean Corpuscular Volume 94.8 79-99 fL Mean Corpuscular Hemoglobin 31.8 27.0-33.0 pg Mean Corpuscular Hemoglobin Concent 33.6 32.0-36.0 g/dL Red Cell Distribution Width 14.5 11.0-15.5 % Platelet Count 62 L 130-400 K/uL Mean Platelet Volume 10.1 7.5-10.5 fL Nucleated Red Blood Cells 0.0 0.0-0.19 % Immature Granulocyte % (Auto) 0.3 0-1 % Neutrophils (%) (Auto) 73.9 40.0-77.0 % Lymphocytes (%) (Auto) 15.0 L 21.0-51.0 % Monocytes (%) (Auto) 10.8 3.0-13.0 % Eosinophils (%) (Auto) 0.0 0.0-8.0 % Basophils (%) (Auto) 0.0 0.0-5.0 % Neutrophils # (Auto) 2.5 1.8-7.7 K/uL Lymphocytes # (Auto) 0.5 L 1.0-4.8 K/uL Monocytes # (Auto) 0.4 0.1-1.0 K/uL Eosinophils # (Auto) 0.00 0.00-0.70 K/uL Basophils # (Auto) 0.00 0.00-0.20 K/uL Absolute Immature Granulocyte (auto 0.01 0-1 K/uL Chemistry Labs: Test 07/13/25 11:03 07/13/25 04:01 Range/Units Whole Blood Glucose 124 H 70-110 MG/DL Sodium Level 137 136-145 mmol/L Potassium Level 3.3 L 3.5-5.1 mmol/L Chloride Level 94 L 101-111 mmol/L Carbon Dioxide Level 31 21-32 mmol/L Blood Urea Nitrogen 44 H 7-18 mg/dL Creatinine 4.9 H 0.5-1.3 mg/dL Glomerular Filtration Rate Calc 12 >90 mL/min Random Glucose 119 H 70-105 mg/dL Total Calcium 8.0 L 8.5-10.1 mg/dL Phosphorus Level 4.4 2.5-4.9 mg/dL Magnesium Level 1.70 L 1.80-2.40 mg/dL Total Bilirubin 0.8 0.2-1.0 mg/dL Aspartate Amino Transf (AST/SGOT) 18 10-37 U/L Alanine Aminotransferase (ALT/SGPT) 25 12-78 U/L Alkaline Phosphatase 74 50-136 U/L Total Protein 6.8 6.0-8.3 g/dL Albumin 4.1 3.5-5.0 g/dL DIAGNOSTICS / RADIOLOGY: [address] [address] IMAGING REPORT Signed PATIENT: EVELIA LICEA MR#: [id number] : 1955 SEX: M AGE: 70 LOCATION: [facility] ORDER 0 STATUS: ADM IN REPORT#: [id number] SERVICE 9 REASON: AVF creation ORDERING PHYSICIAN: SERGIO IBARRA MD PROCEDURE: VEIN M UNI - US VEIN MAPPING UNI/LTD EXAMINATION: SPECTRAL DOPPLER ULTRASOUND EXAMINATION OF THE RIGHT UPPER EXTREMITY VEINS. CLINICAL HISTORY: Arterio-venous creation. COMPARISON: None provided. TECHNIQUE: Real-time ultrasound scan of the veins of the right upper extremity. FINDINGS: Depth (cm) Lumen (cm) Right Cephalic vein: Somers: Collapsed Upper arm: 0.3 0.3 Mid arm: 0.1 0.3 Lower arm: 0.1 0.3 Antecubital fossa: 0.1 0.3 Upper forearm: 0.2 0.2 Mid forearm: 0.1 0.2 Wrist: 0.1 0.1 Basilic vein: Upper arm: 0.3 0.4 Lower arm: 0.2 0.3 Antecubital fossa: 0.3 0.2 IMPRESSION: No superficial vein thrombosis in the right upper extremity. Venous mapping as above. [facility] DICTATED BY: KESHAWN TORRES Jr., MD DATE: 07/13/25713 ELECTRONICALLY SIGNED BY: KESHAWN TORRES Jr., MD DATE: 07/13/25713 PATIENT: EVELIA LICEA MR#: [id number] : 1955 SEX: M AGE: 70 LOCATION: [facility] ORDER 141 STATUS: REG ER REPORT#: [id number] SERVICE 140 REASON: SOB ORDERING PHYSICIAN: RONNI MONTES [employer]APPER [employer]AYER PROCEDURE: CXR1VW - CHEST 1VW EXAM: XR Chest, 1 View. CLINICAL HISTORY: SOB. COMPARISON: None provided. FINDINGS: LUNGS: The lung dai are hyperexpanded compatible with underlying COPD. No consolidation. PLEURAL SPACES: No pleural effusion or pneumothorax. HEART: The heart, mediastinum, and pulmonary vascularity are within normal limits. No mediastinal or hilar adenopathy is defined. BONES: No pathologic skeletal findings are evident. Midline sternotomy sutures are seen. IMPRESSION: 1. Mild hyperexpanded chest with COPD changes. [facility] DICTATED BY: KENJI CAMPBELL MD DATE: 07/07/251558 ELECTRONICALLY SIGNED BY: KENJI CAMPBELL MD DATE: 07/07/251558 ASSESSMENT: Fluid overload Lower extremity edema End-stage renal disease Hyponatremia Metabolic acidosis Diabetes mellitus type 2 Anemia Thrombocytopenia Hypertension PLAN: Labs, diagnostic, radiologic exams reviewed and interpreted by myself and supervising physician. We have reviewed external records in detail Continue with dialysis schedule Saturday Patient and family instructed to follow up with CT surgeon and PCP upon discharge for AV access creation Preserve nondominant arm for AV access creation Require close monitoring of renal function and electrolytes Order CBC, CMP, and electrolytes in am Renal diabetic diet BiPAP as necessary, for respiratory distress Monitor blood pressure adjust medication doses as needed Avoid hypotensive episodes May use Dilaudid 0.5 mg IV every 6 hours as needed for severe pain Monitor blood sugars Strict intake, output, and daily weight should be monitored Please renally adjust medications Avoid nephrotoxic and nonsteroidal drugs Avoid contrast if possible Will continue to monitor renal function, anemia, electrolytes Treatment plan discussed with patient Questions were answered We have discussed with the other team physicians in detail about the care plan We will continue to monitor the patient closely ATTESTATION BY PHYSICIAN I have seen and examined the patient. I reviewed the documentation, medical decision making, and treatment plan as noted by the mid-level provider above. I agree with the findings and plan of care. KEENAN BENNETT MD, [facility] Jul 13, 2025 13:45
--- NOTE | 2025-07-13 13:45 | NUR ---
DISCHARGE DISCHARGE ORDERS OBTAINED FOR PATIENT TO BE DISCHARGED HOME. DISCHARGE INSTRUCTIONS AND DOCUMENTATION GIVEN TO PATIENT AND DAUGHTER AT BEDSIDE. COPY OF FOLLOW UP APPOINTMENT WITH DIALYSIS GIVEN WITH DISCHARGE INSTRUCTIONS. BOTH VOICED UNDERSTANDING. IV DISCONTINUED, CATHETER INTACT, NO S/S OF INFECTION NOTED TO SITE. PATIENT TOLERATED WELL. BANDS REMOVED PRIOR TO DISCHARGE. PATIENT LEFT VIA WHEELCHAIR, ACCOMPANIED BY DAUGHTER AND FAMILY. NO S/S OF DISTRESS NOTED UPON DISCHARGE.
--- NOTE | 2025-07-13 18:06 | DS ---
Discharge Summary Hospital Course FINAL DISCHARGE DIAGNOSIS: End-stage renal disease, status post PermCath placement, new onset dialysis. Hyponatremia, resolved. Anemia, requiring blood transfusion. Pancytopenia. Diabetes mellitus. Hypertension. PLAN: Discharge patient to home today. Continue same home medications. AV graft versus AV fistula to be done as outpatient. Follow up with Dr. Mejía as instructed. Follow up with PCP in 3-5 days. Follow up with [facility] on Saturday and Fridays for dialysis. This case was reviewed and discussed with my supervising physician Dr. Husain and the above assessment and plan was formulated and agreed upon. ATTESTATION BY PHYSICIAN I have seen and examined the patient. I reviewed the documentation, medical decision making, and treatment plan as noted by the mid-level provider above. I agree with the findings and plan of care. BRIGITTE HUSAIN MD, [facility] Jul 13, 2025 18:05
== END 2025-07-13 14:00 | disposition home or self-care (01) | DRG 674 ==
LOC: EDH 14:03 → EDHIP 15:21 → 4CH 18:00
PROVIDERS: ADMIT Internal Medicine Infectious Disease; ATTEND Internal Medicine Infectious Disease
PROC: 0JH63XZ Insertion of Tunneled Vascular Access Device into Chest Subcutaneous Tissue and Fascia, Percutaneous Approach (ICD-10-PCS; principal; 2025-07-09)
PROC: 5A1D70Z Performance of Urinary Filtration, Intermittent, Less than 6 Hours Per Day (ICD-10-PCS; 2025-07-09)
PROC: 02HV33Z Insertion of Infusion Device into Superior Vena Cava, Percutaneous Approach (ICD-10-PCS; 2025-07-09)
PROC: B5181ZA Fluoroscopy of Superior Vena Cava using Low Osmolar Contrast, Guidance (ICD-10-PCS; 2025-07-09)
PROC: B548ZZA Ultrasonography of Superior Vena Cava, Guidance (ICD-10-PCS; 2025-07-09)
PROC: 5A1D70Z Performance of Urinary Filtration, Intermittent, Less than 6 Hours Per Day (ICD-10-PCS; 2025-07-10)
PROC: 30233N1 Transfusion of Nonautologous Red Blood Cells into Peripheral Vein, Percutaneous Approach (ICD-10-PCS; 2025-07-11)
PROC: 5A1D70Z Performance of Urinary Filtration, Intermittent, Less than 6 Hours Per Day (ICD-10-PCS; 2025-07-12)
DX: N17.9 Acute kidney failure, unspecified (principal); D61.818 Other pancytopenia; E87.20 Acidosis, unspecified; I12.0 Hypertensive chronic kidney disease with stage 5 chronic kidney disease or end stage renal disease; N18.6 End stage renal disease; J44.9 Chronic obstructive pulmonary disease, unspecified; E11.22 Type 2 diabetes mellitus with diabetic chronic kidney disease; E87.1 Hypo-osmolality and hyponatremia; E87.70 Fluid overload, unspecified; E87.5 Hyperkalemia; M79.89 Other specified soft tissue disorders; E11.65 Type 2 diabetes mellitus with hyperglycemia; E78.00 Pure hypercholesterolemia, unspecified; F41.9 Anxiety disorder, unspecified; I25.10 Atherosclerotic heart disease of native coronary artery without angina pectoris; Z79.4 Long term (current) use of insulin; Z83.3 Family history of diabetes mellitus; Z91.158 Patient's noncompliance with renal dialysis for other reason; Z95.1 Presence of aortocoronary bypass graft; Z95.5 Presence of coronary angioplasty implant and graft
CPT/HCPCS: 36415; 36430; 36558; 71045; 77001; 80048; 80053; 80061; 81001; 82040; 82565; 82728; 82948; 83036; 83521; 83540; 83550; 83735; 83880; 84100; 84484; 84520; 85014; 85018; 85025; 85027; 85610; 85730; 86334; 86701; 86704; 86706; 86803; 86850; 86900; 86901; 86923; 87340; 87390; 90935; 93005; 93971; 99156; 99157; 99285; C1750; G0378; J0360; J1100; J1644; J1815; J1938; J2250; J3010; J3490; P9016; Q5106